=== PATIENT | male | born 1940 | race Caucasian/White ===

== ENCOUNTER 2023-08-21 17:25 | Emergency (ER) | payer MEDICARE, OTHER, SELFPAY ==
[2023-08-21 17:29] VITALS: BP 133/63; BMI 25.3
[2023-08-21 17:30] VITALS: BP 133/63
[2023-08-21 17:56] LABS: % Basophils 0.2 % (0-2); % Eosinophils 0.2 % (0-6); % Immature Granulocytes 0.5 % (0-0.5); % Monocytes 7.9 % (1.7-9.3); % Neutrophils 83.2 % (42.2-75.2); Absolute Lymphocytes 0.7 10^3/uL (1.2-3.4); Absolute Monocytes 0.7 10^3/uL (0.1-0.6); Absolute Neutrophils 6.9 10^3/uL (1.4-6.5); Hematocrit 29.3 % (39.0-52.0); Hemoglobin 10.1 g/dL (13.0-18.0); Mean Corp Hgb Conc. 34.5 g/dL (33.0-37.0); Mean Corpuscular Hgb 27.5 pg (27.0-31.0); Mean Corpuscular Volume 79.8 fL (80.0-94.0); Mean Platelet Volume 9.1 fL (7.4-10.4); Nucleated Red Blood Cells % 0 % (-); Platelet Count 169 10^3/uL (130-400); Red Blood Cell Count 3.67 10^6/uL (4.70-6.10); Red Cell Dist. Width 14.6 % (11.5-14.5); White Blood Cell Count 8.3 10^3/uL (4.8-10.8)
[2023-08-21 18:00] VITALS: BP 119/51
[2023-08-21 18:10] LABS: ALT (SGPT) 17 U/L (0-50); AST (SGOT) 31 U/L (17-59); Albumin 3.3 g/dl (3.5-5.0); Alkaline Phosphatase 47 U/L (38-126); Blood Urea Nitrogen 16 mg/dl (9-20); Calcium 8.1 mg/dl (8.4-10.2); Carbon Dioxide 27 mmol/L (22-30); Chloride 102 mmol/L (98-107); Estimated Creatinine Clearance 47 ml/min; Glucose 153 mg/dl (70-99); Potassium 3.8 mmol/L (3.5-5.1); Sodium 133 mmol/L (135-145); Total Bilirubin 0.7 mg/dl (0.2-1.3); Total Protein 6.2 g/dl (6.3-8.2); eGFR 54.51
[2023-08-21 18:23] LABS: COVID-19 Antigen Negative (Negative)
--- NOTE | 2023-08-21 18:42 | EDRN ---
the pts daughter stated that the pt is 'severely allergic to Tamiflu he went into anaphylaxis, can you please add that to his chart', this RN added Tamiflu to the pts allergies
--- NOTE | 2023-08-21 19:23 | ED.GENMED ---
History of Present Illness
General
Chief Complaint: Fall
Source: patient, records and ambulance crew
Time Seen by Provider: 08/21/23 19:15
Travel History
Have you had any contact with someone who has COVID-19?: No
Do you have any symptoms of coronavirus? Fever > 100 degrees, chills, cough, shortness of breath, sore throat, loss of taste or smell, muscle aches, or headache?: Yes
Symptoms:: cough
History of Present Illness
History of Present Illness:
82-year-old male with past medical history of significant chronic cardiac disease, GERD and previous GI bleeding, diabetes presenting from [facility] where patient is currently residing after having a fall within the last week, normally
lives at home with and daughter, at rehab today patient had another fall when he states he was transitioning back into his wheelchair and struck his head on the ground. Patient is on a half dose of Eliquis which is why they sent him to the ER
for further evaluation. EMS also found the patient to be mildly hypoxic and have a slight cough during transportation here and placed patient on oxygen. Patient's past medical history listed him as using 4 L of O2 at all times however patient
states he never wears oxygen. Patient is unaware of any fevers and is otherwise denying any chest pain, palpitations, diaphoresis, abdominal pain, nausea, vomiting, sore throat, nasal congestion, headache, visual disturbances, focal weakness or
numbness, extremity related pain or any other concerns.
Past History
Past History
ED Past Medical History: Arrthythmia (Afib on Eliquis), CAD, CHF (chronic systolic heart failure), CVA, HTN, Hypercholesterolemia, [place] (2009), Psychiatric (depression ), Other (Pulmonary embolism, DVT), Other (GI bleed) and Other (BPH)
ED Past Surgical History: Cardiac (CABG 2009)
Social History
Tobacco: Former smoker
Alcohol: None
Drug: None
Personal:
Living: prison (lives with at [facility])
Employment: Retired
Family History
Family History: Other (Noncontributory)
Review of Systems
Review of Systems
All Other Systems: ROS reviewed and negative except as documented in HPI and ROS
Phy Exam
Physical Exam
Physical Exam:
GENERAL: Sleeping initially but easily arousable to voice, in no acute distress, on 2 L via nasal cannula
Head: Normocephalic atraumatic
EYE: Clear conjunctiva
NECK: Supple, no midline tenderness
ENT: o/p clr, mmm.
CARDIAC: Regular rate and rhythm .
LUNGS: Rhonchorous lung sounds throughout anterior and posterior lung person but no acute respiratory distress, intermittent nonproductive cough noted
ABDOMEN: Soft, without focal tenderness, no r/g, no cvat
NEUROLOGICAL: Alert and oriented x 3
SKIN: Warm and dry, skin intact.
MUSCULOSKELETAL: No edema, well perfused.
PSYCH: Normal and appropriate interaction.
Scores
Heart Failure Risk
Heart Failure Risk Score: Not Applicable
Heart Score for Chest Pain Patients
STEMI patient?: Not applicable
Withdrawal Assessment of Alcohol
Withdrawal Assessment Completed?: Not applicable
Course
Orders/Labs/Results
Orders:
Orders
08/21/23 17:29
CR Chest - 2 Views Urgent
Comment:
Reason For Exam: cough
08/21/23 17:40
COVID-19 Antigen Urgent
Source: Nasal Swab
Complete Blood Count/With Diff Urgent
Comprehensive Metabolic Panel Urgent
08/21/23 17:42
Influenza A+B Rapid Molecular Urgent
ALEJA Source: Nasal Swab
Specimen Description:
08/21/23 19:22
CT Head W/o Iv Contrast Urgent
Comment:
Reason For Exam: fall, head injury, on eliquis
Abnormal Lab Results
08/21/23
17:40
RBC 3.67 L 10^6/uL
(4.70-6.10)
Hgb 10.1 L g/dL
(13.0-18.0)
Hct 29.3 L %
(39.0-52.0)
MCV 79.8 L fL
(80.0-94.0)
RDW 14.6 H %
(11.5-14.5)
Absolute Neuts (auto) 6.9 H 10^3/uL
(1.4-6.5)
Absolute Lymphs (auto) 0.7 L 10^3/uL
(1.2-3.4)
Absolute Monos (auto) 0.7 H 10^3/uL
(0.1-0.6)
Neutrophils % 83.2 H %
(42.2-75.2)
Lymphocytes % 8.0 L %
(20.5-51.1)
Sodium 133 L mmol/L
(135-145)
Glucose 153 H mg/dl
(70-99)
Calcium 8.1 L mg/dl
(8.4-10.2)
Total Protein 6.2 L g/dl
(6.3-8.2)
Albumin 3.3 L g/dl
(3.5-5.0)
08/21/23 17:40
08/21/23 17:40
Vital Signs
Initial and Last Documented VS:
Initial Vital Signs
Temp Pulse Resp BP Pulse Ox
98.9 F 87 20 133/63 95
08/21/23 17:29 08/21/23 17:29 08/21/23 17:29 08/21/23 17:29 08/21/23 17:29
Last Documented Vital Signs
Temp Pulse Resp BP Pulse Ox
98.9 F 83 24 119/51 98
08/21/23 17:29 08/21/23 18:30 08/21/23 18:30 08/21/23 18:00 08/21/23 19:30
Wood Hacker consulted with Physician
Wood Hacker consulted with physician?: Yes
Name of Physician Consulted: Fortino
MDM/Problems Addressed
Differential Diagnosis Includes:
COVID, flu or other viral etiology, intracranial bleeding, calvarial fracture, mechanical fall, deconditioning, electrolyte disturbance, dehydration
MDM/Problems Addressed:
82-year-old male presenting the emergency department following a mechanical fall while at [facility] today noting head injury but currently without any headache or neurologic concerns or extremity related injury. EMS noted a low pulse ox
upon their arrival and put patient on 2 L nasal cannula, patient was found to be borderline hypoxic here so was kept on the 2 L via nasal cannula. Lab work was initiated upon arrival by nursing staff. Patient incidentally tested positive for the
flu which is likely cause of the hypoxia and coughing. Will add on a CT head to evaluate given the fall and reported head injury as well as anticoagulated status. Patient's chest x-ray reveals a left lower lung opacity which could be consistent
with an early pneumonia and likely viral given the patient's positive flu. Given his current hypoxia, new flu and fall while at rehab I do feel it would be beneficial for the patient to be readmitted to the hospital. I have attempted to contact
family multiple times via telephone in the records but no answer during these attempts to call.
Chronic conditions affecting care: Arrhythmia
*Radiology
Radiology exam reviewed: preliminary read by ED provider (Left lower lung opacity) and radiology read reviewed
*Pulse Oximetry
Patient hypoxic: yes
*Pool Coordinator Interpretation
Rate: normal
Rhythm: sinus
*Critical Care Note
Total Time (30-74mins, 75-104mins- exclusive of procedures): Not Applicable
Data Reviewed
Review of Other/Old Records Reveals: Testing
Source: patient and ambulance crew
Patient Management
Escalation/DeEscalation of care consider admission/obs:
Patient CT of the head is unremarkable. He remained stable and without any specific concerns at this time. I attempted to reach out to family multiple times as well as [facility] multiple times but did not receive a call back from anyone.
Patient is not a Tamiflu candidate due to allergy with reported anaphylaxis. At this point patient needs supportive care only for his flu diagnosis and is going back to [facility] where he resides and will have continuous nursing care. Will
have EMS transport patient back to [facility]
ED Attending Note
-
Portions of this chart may have been created with voice recognition software.� Occasional wrong word or��sound alike� substitutions may have occurred due to the inherent limitations of voice recognition software.
Discharge Plan
Departure
Patient Disposition: [facility]SNF
Date of Disposition: 08/21/23
Time of Disposition: 20:13
Patient with high blood pressure during this ER visit?: No
Discharge Problem:
Influenza A, Accidental fall
Instructions: Flu, Adult (DC)
Prescriptions:
No Action
metformin 500 mg Tablet
250 mg PO BID@
acetaminophen [Tylenol] 325 mg Tablet
650 mg PO Q4H PRN (Reason: mild pain/fever>100.4)
sucralfate [Carafate] 1 gram Tablet
1 g PO BID@
carvedilol [Coreg] 3.125 mg Tablet
3.125 mg PO BID@
magnesium hydroxide [Milk of Magnesia] 400 mg/5 mL Suspension
30 ml PO HS PRN (Reason: constipation)
tamsulosin [Flomax] 0.4 mg Capsule
0.8 mg PO QPM
bisacodyl [Dulcolax (bisacodyl)] 10 mg Suppository
10 mg DC DAILY PRN (Reason: if mom ineffective)
furosemide [Lasix] 20 mg Tablet
20 mg PO DAILY
Levemir Flexpen 100 unit/mL (3 mL) Insulin Pen
20 unit SC DAILY@2029
fesoterodine [Toviaz] 4 mg Tablet Extended Release 24 Hr
4 mg PO DAILY
Arnuity Ellipta 200 mcg/actuation Blister With Device
1 inh INHALATION R DAILY
Trulicity 1.5 mg/0.5 mL Pen Injector
1.5 mg SC TH
divalproex 250 mg Tablet,Delayed Release (Dr/Ec)
250 mg PO BID@
trazodone 50 mg Tablet
50 mg PO HS
Coricidin HBP Cough and Cold 4-30 mg Tablet
1 tab PO Q6H
Patient Comments:
08/21/2023: Start 08/21/23 for 3 days, then start 08/25/23 for 4 days
Rx Instructions:
@0000,0600,1200,1800
loperamide 2 mg Tablet
2 mg PO BID PRN (Reason: diarrhea)
Rx Instructions:
give after each loose stool. max 2 tabs 24 hrs
amlodipine 2.5 mg tablet
2.5 mg PO DAILY
melatonin 3 mg Tablet
3 mg PO HS
pantoprazole 20 mg Tablet,Delayed Release (Dr/Ec)
20 mg PO DAILY@2029
paroxetine HCl 30 mg Tablet
30 mg PO DAILY
ergocalciferol (vitamin D2) 1,250 mcg (50,000 unit) Capsule
1,250 mcg PO MONTHLY
Rx Instructions:
Thursday
apixaban 2.5 mg Tablet
2.5 mg PO BID@
Referrals:
Rick Metcalf DO [Family Provider] -
Interventions
Interventions:
*Risk Screen - Suicide Last Done: 08/21/23 17:29
*General Assessment Last Done: 08/21/23 17:29
*Neglect/Abuse Screening Last Done: 08/21/23 17:29
ED- Fall Risk Assessment Last Done: 08/21/23 17:29
*ED COVID-19 Vaccine History Last Done: 08/21/23 17:29
ED-Musculoskeletal Assessment Last Done: 08/21/23 17:29
ED- Neurological Assessment Last Done: 08/21/23 17:29
ED-Skin Assessment Last Done: 08/21/23 17:29
== END 2023-08-21 23:04 ==
LOC: EMR 17:25
PROVIDERS: Emergency Medicine; EMERGENCY PHYSICIAN Emergency Medicine; FAMILY PHYSICIAN Student in an Organized Health Care Education/Training Program
DX: J10.1 Influenza due to other identified influenza virus with other respiratory manifestations (principal); W19.XXXA Unspecified fall, initial encounter; I49.9 Cardiac arrhythmia, unspecified; Z87.891 Personal history of nicotine dependence; Z11.52 Encounter for screening for COVID-19; Z79.01 Long term (current) use of anticoagulants
CPT/HCPCS: 99283; 70450; 71046; 80053; 85025; 87502; 87811

== ENCOUNTER 2023-08-23 17:39 | Inpatient (IN) | payer MEDICARE, OTHER, SELFPAY ==
[2023-08-23] VITALS (8 sets, daily range): BP systolic 104–153; BP diastolic 49–67; BMI 25.0; BMI 25.7
--- NOTE | 2023-08-23 13:37 | ED.GENMED ---
History of Present Illness
General
Chief Complaint: Breathing Problem
Time Seen by Provider: 08/23/23 14:11
Travel History
Have you had any contact with someone who has COVID-19?: No
Do you have any symptoms of coronavirus? Fever > 100 degrees, chills, cough, shortness of breath, sore throat, loss of taste or smell, muscle aches, or headache?: No
Past History
Past History
ED Past Medical History: Arrthythmia (Afib on Eliquis), CAD, CHF (chronic systolic heart failure), CVA, HTN, Hypercholesterolemia, [place] (2009), Psychiatric (depression ), Other (Pulmonary embolism, DVT), Other (GI bleed) and Other (BPH)
ED Past Surgical History: Cardiac (CABG 2009)
Social History
Tobacco: Former smoker
Alcohol: None
Drug: None
Personal:
Living: fpc (lives with at [facility])
Employment: Retired
Family History
Family History: Other (Noncontributory)
Course
Orders/Labs/Results
Orders:
Orders
08/23/23 14:12
Cardiac Monitoring- Treatment ONCE
Complete Blood Count/With Diff Urgent
Comprehensive Metabolic Panel Urgent
08/23/23 14:13
Electrocardiogram (*1) Stat
Reason for Study: Other
Other Reason for Exam: pneumonia
EKG- Treatment ONCE
CR Chest - 2 Views Urgent
Comment:
Reason For Exam: sob
08/23/23 14:22
Ipratropium/Albuterol Sulfate [Duoneb] 3 ml INH R NOW ONE
08/23/23 14:30
Blood Culture Q30M
ALEJA Source: Blood/Venous
Specimen Description:
08/23/23 15:00
Blood Culture Q30M
ALEJA Source: Blood/Venous
Specimen Description:
Vital Signs
Initial and Last Documented VS:
Initial Vital Signs
Temp Pulse Resp BP Pulse Ox
98.4 F 72 15 104/52 95
08/23/23 13:00 08/23/23 13:00 08/23/23 13:00 08/23/23 13:00 08/23/23 13:00
Last Documented Vital Signs
Temp Pulse Resp BP Pulse Ox
98.4 F 58 21 120/49 98
08/23/23 13:00 08/23/23 14:15 08/23/23 14:15 08/23/23 14:00 08/23/23 14:17
ED Attending Note
-
Portions of this chart may have been created with voice recognition software.� Occasional wrong word or��sound alike� substitutions may have occurred due to the inherent limitations of voice recognition software.
Discharge Plan
Departure
Prescriptions:
No Action
metformin 500 mg Tablet
250 mg PO BID@
acetaminophen [Tylenol] 325 mg Tablet
650 mg PO Q4H PRN (Reason: mild pain/fever>100.4)
sucralfate [Carafate] 1 gram Tablet
1 g PO BID@
carvedilol [Coreg] 3.125 mg Tablet
3.125 mg PO BID@
magnesium hydroxide [Milk of Magnesia] 400 mg/5 mL Suspension
30 ml PO HS PRN (Reason: constipation)
tamsulosin [Flomax] 0.4 mg Capsule
0.8 mg PO QPM
bisacodyl [Dulcolax (bisacodyl)] 10 mg Suppository
10 mg CA DAILY PRN (Reason: if mom ineffective)
furosemide [Lasix] 20 mg Tablet
20 mg PO DAILY
Levemir Flexpen 100 unit/mL (3 mL) Insulin Pen
20 unit SC DAILY@2029
fesoterodine [Toviaz] 4 mg Tablet Extended Release 24 Hr
4 mg PO DAILY
Arnuity Ellipta 200 mcg/actuation Blister With Device
1 inh INHALATION R DAILY
Trulicity 1.5 mg/0.5 mL Pen Injector
1.5 mg SC TH
divalproex 250 mg Tablet,Delayed Release (Dr/Ec)
250 mg PO BID@829,1829
trazodone 50 mg Tablet
50 mg PO HS
Coricidin HBP Cough and Cold 4-30 mg Tablet
1 tab PO Q6H
Patient Comments:
08/21/2023: Start 08/21/23 for 3 days, then start 08/25/23 for 4 days
Rx Instructions:
@0000,0600,1200,1800
loperamide 2 mg Tablet
2 mg PO BID PRN (Reason: diarrhea)
Rx Instructions:
give after each loose stool. max 2 tabs 24 hrs
amlodipine 2.5 mg tablet
2.5 mg PO DAILY
melatonin 3 mg Tablet
3 mg PO HS
pantoprazole 20 mg Tablet,Delayed Release (Dr/Ec)
20 mg PO DAILY@2029
paroxetine HCl 30 mg Tablet
30 mg PO DAILY
ergocalciferol (vitamin D2) 1,250 mcg (50,000 unit) Capsule
1,250 mcg PO MONTHLY
Rx Instructions:
Thursday
apixaban 2.5 mg Tablet
2.5 mg PO BID@
Referrals:
Rick Metcalf DO [Family Provider] -
Interventions
Interventions:
*Risk Screen - Suicide Last Done: 08/23/23 12:58
*General Assessment Last Done: 08/23/23 12:59
*Neglect/Abuse Screening Last Done: 08/23/23 12:58
ED- Fall Risk Assessment Last Done: 08/23/23 12:58
*ED COVID-19 Vaccine History Last Done: 08/23/23 12:59
ED- Cardiac Assessment Last Done: 08/23/23 13:02
ED- Pulmonary Assessment Last Done: 08/23/23 13:02
[2023-08-23] MEDS: DUONEB 3 ML INH ×2 (14:29→20:43)
--- NOTE | 2023-08-23 14:30 | ED.GENMED ---
History of Present Illness
General
Chief Complaint: Breathing Problem
Source: patient, records, family and long term records
Exam Limitations: altered mental status
Time Seen by Provider: 08/23/23 14:11
Nursing documentation reviewed up to this point in time: agreed with
Travel History
Have you had any contact with someone who has COVID-19?: No
Do you have any symptoms of coronavirus? Fever > 100 degrees, chills, cough, shortness of breath, sore throat, loss of taste or smell, muscle aches, or headache?: No
History of Present Illness
History of Present Illness:
82-year-old male from the family presents with fatigue shortness of breath low pulse ox diagnosed with influenza A recently cannot take Tamiflu due to an allergy, started on Augmentin recently has had decreased p.o. intake confusion,
Past History
Past History
ED Past Medical History: Arrthythmia (Afib on Eliquis), CAD, CHF (chronic systolic heart failure), CVA, HTN, Hypercholesterolemia, [place] (2009), Psychiatric (depression ), Other (Pulmonary embolism, DVT), Other (GI bleed) and Other (BPH)
ED Past Surgical History: Cardiac (CABG 2009)
Social History
Tobacco: Former smoker
Alcohol: None
Drug: None
Personal:
Living: long term (lives with at [facility])
Employment: Retired
Family History
Family History: Other (Noncontributory)
Review of Systems
Review of Systems
Other source history: family and transfer record
All Other Systems: Not applicable
Constitutional: Reports fatigue
Respiratory: Reports cough and trouble breathing
Phy Exam
Physical Exam
Physical Exam:
Physical Exam
General: Ill-appearing male
Neck: Looks pale no joint
Heart: s1/s2 regular rate and rhythm, no murmur. equal radial pulses.
Lungs: Crackles by bilaterally
Abdomen: Nontender
Neuro: alert and oriented. Globally weak
Skin: no rash
Psychiatric: Flat affect
Extremities: Trace edema
Scores
Heart Failure Risk
Heart Failure Risk Score: Not Applicable
Course
Orders/Labs/Results
Orders:
Orders
08/23/23 14:12
Cardiac Monitoring- Treatment ONCE
08/23/23 14:13
Electrocardiogram (*1) Stat
Reason for Study: Other
Other Reason for Exam: pneumonia
EKG- Treatment ONCE
CR Chest - 2 Views Urgent
Comment:
Reason For Exam: sob
08/23/23 14:21
Complete Blood Count/With Diff Urgent
Comprehensive Metabolic Panel Urgent
08/23/23 14:22
Ipratropium/Albuterol Sulfate [Duoneb] 3 ml INH R NOW ONE
08/23/23 14:29
Blood Culture Q30M
ALEJA Source: Blood/Venous
Specimen Description:
Blood Culture Q30M
ALEJA Source: Blood/Venous
Specimen Description:
08/23/23 14:34
Electrocardiogram (*1) Urgent
Reason for Study: Abdominal Pain
EKG- Treatment ONCE
08/23/23 Dinner
2000 calorie (17 carb) Diabetic
At Your Request: Full Participation
Does patient need a safe tray?: No
08/23/23 16:23
Piperacillin/Tazo 2.25 Gram [Zosyn] 2.25 grams in 50 ml IV NOW
08/23/23 16:25
0.9% Sodium Chloride 1000 ml [Nss] 1,000 ml IV BOLUS
08/23/23 16:29
Piperacillin/Tazo 2.25 Gram [Zosyn] 2.25 grams in 50 ml IV NOW
08/23/23 17:03
Add On- LAB Urgent
Tests Added?: Procalcitonin
08/23/23 17:05
Admit/Transfer Patient As Directed
Co-Sign Provider:
Level of Care: Inpatient admission
Assign to:: Medical/Surgical
Physician / Group: Pari
Diagnosis: Pneumonia, Influenza, hypoxia
Reason for Hospitalization: IV abx, nebs, oxygen
Expected length of stay greater than two midnights?: Yes
ELOS- Estimated Length of Stay in days: 3
I certify the patient meets the requirements for IP care: Yes
08/23/23 17:11
Code Status As Directed
Resuscitation Status: Do not resuscitate
Based on pt advanced directive or healthcare POA form: Yes
DNR Bracelet Application ONCE
08/23/23 17:37
Procalcitonin Urgent
PCT Algorithmm Indication: Respiratory
08/23/23 19:33
Acetaminophen [Tylenol] 650 mg PO Q4HPRN PRN
Dextrose 50%-Water [Dextrose 50% Syringe] 12.5 grams IV [id number] PRN
Glucagon [GlucaGen] 1 mg IM PRN PRN
Ipratropium/Albuterol Sulfate [Duoneb] 3 ml INH R Q4HPRN PRN
08/23/23 19:33
Activity As Directed
Activity Level: Out of Bed-Early Mobility
Bedside Glucose Monitoring As Directed
Frequency: AC&HS
Comment: Change to q6h if pt on TPN, tube feeding or not eating
I&O [Intake/ Output] As Directed
Frequency: q12h
Intake/ Output As Directed
Frequency: Per unit guidelines
Vital Signs As Directed
Frequency: Per unit guidelines
Weight As Directed
Frequency: Daily
Weight As Directed
Frequency: Once
Comment: on admission
O2 Therapy [RESP] Routine
Titrate/Wean O2 to maintain O2 sat greater than (%): 90
Special Instructions: Wean as tolerated
Vest Therapy [Rx Vest] [RESP] Routine
Quantity: 1
Ot Eval And Treat Routine
Pt Eval And Treat Routine
Activity Level: Out of Bed-Early Mobility
Speech Therapy Eval & Treat Routine
08/23/23 20:00
Budesonide [Pulmicort] 0.5 mg INH R BID
Carvedilol [Coreg] 3.125 mg PO BID
Guaifenesin [Mucinex] 600 mg PO Q12
Ipratropium/Albuterol Sulfate [Duoneb] 3 ml INH R QID
Sucralfate [Carafate] 1 gram PO BID
08/23/23 20:30
insulin detemir U-100 20 unit SC DAILY@2029
08/23/23 21:00
CefTRIAXone [Rocephin] 1,000 mg IV Q24H
08/23/23 21:30
Apixaban [Eliquis] 2.5 mg PO BID
08/23/23 22:00
Divalproex Delayed Rel. 12 Hr [Depakote (12 Hr Release)] 250 mg PO BID@0830,1830
Melatonin 3 mg PO HS
Pantoprazole [Protonix] 20 mg PO HS
Tamsulosin [Flomax] 0.8 mg PO QPM
Trazodone [Desyrel] 50 mg PO HS
08/24/23 06:00
Basic Metabolic Panel IN AM
Complete Blood Count/No Diff IN AM
Glycohemoglobin (HgbA1c) IN AM
08/24/23 07:30
Insulin Aspart Corrective Mod [Novolog Flexpen-Moderate Resistance] See Protocol SC AC
08/24/23 08:00
Amlodipine [Norvasc] 2.5 mg PO DAILY
Azithromycin [Zithromax] 500 mg PO DAILY
Fesoterodine Fumarate ER [Toviaz] 4 mg PO DAILY
Furosemide [Lasix] 20 mg PO DAILY
Paroxetine [Paxil] 30 mg PO DAILY
Abnormal Lab Results
08/23/23 08/23/23
14:21 17:37
RBC 3.65 L 10^6/uL
(4.70-6.10)
Hgb 10.1 L g/dL
(13.0-18.0)
Hct 29.6 L %
(39.0-52.0)
RDW 15.0 H %
(11.5-14.5)
Absolute Monos (auto) 1.0 H 10^3/uL
(0.1-0.6)
Monocytes % 13.3 H %
(1.7-9.3)
Sodium 132 L mmol/L
(135-145)
Carbon Dioxide 31 H mmol/L
(22-30)
Creatinine 1.5 H mg/dL
(0.7-1.3)
Glucose 114 H mg/dl
(70-99)
Calcium 7.9 L mg/dl
(8.4-10.2)
Total Protein 5.7 L g/dl
(6.3-8.2)
Albumin 3.0 L g/dl
(3.5-5.0)
Procalcitonin 0.37 H ng/ml
(0.0-0.25)
08/23/23 14:21
08/23/23 14:21
Vital Signs
Initial and Last Documented VS:
Initial Vital Signs
Temp Pulse Resp BP Pulse Ox
98.4 F 72 15 104/52 95
08/23/23 13:00 08/23/23 13:00 08/23/23 13:00 08/23/23 13:00 08/23/23 13:00
Last Documented Vital Signs
Temp Pulse Resp BP Pulse Ox
97.8 F 73 16 153/67 98
08/23/23 19:53 08/23/23 21:51 08/23/23 20:46 08/23/23 21:51 08/23/23 20:46
MDM/Problems Addressed
Differential Diagnosis Includes:
Pneumonia influenza bronchitis heart failure doubt PE as
MDM/Problems Addressed:
Shortness of breath
Chronic conditions affecting care: DM, HTN, CAD, Cardiomyopathy and Neurological disorder
Acute Exacerbation and/or Progression of Chronic Illness: DM, HTN, CAD, Cardiomyopathy and Neurological disorder
*Radiology
Radiology exam reviewed: preliminary read by ED provider
*Pulse Oximetry
Patient hypoxic: yes
Comment: 89
*EKG
Interpreted by ED Provider?: Yes
Interpretation: abnormal
Comparison EKG: no comparison EKG present
Heart Rate: 78
Rate: normal
Rhythm: sinus
Ischemia: non-specific ST changes
*Air Conditioning Installer Supervisor Interpretation
Rate: normal
Interpretation: normal
Heart Rate: 78
Rhythm: sinus
*Critical Care Note
Total Time (30-74mins, 75-104mins- exclusive of procedures): 30
Data Reviewed
Review of Other/Old Records Reveals: Labs, Records and Progress Notes
Source: patient and family
Update Note
Update Note:
4:20 PM chest x-ray noted, will start IV antibiotics cultures have been sent he requiring supplemental oxygen is allergic to Tamiflu will require admission
ED Attending Note
-
Portions of this chart may have been created with voice recognition software.� Occasional wrong word or��sound alike� substitutions may have occurred due to the inherent limitations of voice recognition software.
Discharge Plan
Departure
Patient Disposition: Admit
Date of Disposition: 08/23/23
Time of Disposition: 16:25
Admit to: Med/Surg
Presentation/result/management discussed w/ accepting MD/DO: Hospitalist
Condition: Fair
Covid-19: Not Applicable
Discharge Problem:
Pneumonia, Toxic metabolic encephalopathy, Hypoxia, Influenza A
Interventions
Interventions:
*Risk Screen - Suicide Last Done: 08/23/23 19:56
*General Assessment Last Done: 08/23/23 12:59
*Neglect/Abuse Screening Last Done: 08/23/23 12:58
ED- Fall Risk Assessment Last Done: 08/23/23 12:58
*ED COVID-19 Vaccine History Last Done: 08/23/23 19:56
*Nursing Disposition Last Done: 08/23/23 19:31
ED- Cardiac Assessment Last Done: 08/23/23 13:02
ED- Pulmonary Assessment Last Done: 08/23/23 13:02
Discharge Date and Time
Discharge Date/Time: 08/23/23 19:31
[2023-08-23 14:32] LABS: % Basophils 0.4 % (0-2); % Eosinophils 0.1 % (0-6); % Immature Granulocytes 0.5 % (0-0.5); % Lymphocytes 27.1 % (20.5-51.1); % Monocytes 13.3 % (1.7-9.3); % Neutrophils 58.6 % (42.2-75.2); Absolute Neutrophils 4.4 10^3/uL (1.4-6.5); Hematocrit 29.6 % (39.0-52.0); Hemoglobin 10.1 g/dL (13.0-18.0); Mean Corp Hgb Conc. 34.1 g/dL (33.0-37.0); Mean Corpuscular Hgb 27.7 pg (27.0-31.0); Mean Corpuscular Volume 81.1 fL (80.0-94.0); Mean Platelet Volume 9.3 fL (7.4-10.4); Nucleated Red Blood Cells % 0 % (-); Platelet Count 154 10^3/uL (130-400); Red Blood Cell Count 3.65 10^6/uL (4.70-6.10); White Blood Cell Count 7.5 10^3/uL (4.8-10.8)
[2023-08-23 14:51] LABS: ALT (SGPT) 24 U/L (0-50); AST (SGOT) 31 U/L (17-59); Alkaline Phosphatase 45 U/L (38-126); Blood Urea Nitrogen 20 mg/dl (9-20); Calcium 7.9 mg/dl (8.4-10.2); Carbon Dioxide 31 mmol/L (22-30); Chloride 100 mmol/L (98-107); Estimated Creatinine Clearance 42 ml/min; Glucose 114 mg/dl (70-99); Potassium 3.7 mmol/L (3.5-5.1); Sodium 132 mmol/L (135-145); Total Bilirubin 0.4 mg/dl (0.2-1.3); Total Protein 5.7 g/dl (6.3-8.2); eGFR 45.91
[2023-08-23] MEDS: NSS 1000 IV (16:32)
[2023-08-23] MEDS: ZOSYN 50 IV (16:33)
--- NOTE | 2023-08-23 17:16 | HPS.HSE ---
Addendum entered and electronically signed by Arin Yañez MD 08/23/23 17:41:
I saw and examined the patient.
The REFORESTATION WORKER's note was reviewed and I agree with the note.
Comment:
82-year-old male from [facility], with past medical history of CHF, Paroxysmal AFib, DVT/PE, Protein S Deficiency, DM-II, BPH, and Dementia, presented with hypoxia and cough likely due to influenza A infection.
Unfortunately unable to give Tamiflu for influenza A infection due to documented history of allergy/anaphylaxis.
Check procalcitonin, Check MRSA screen.
Continue empiric antibiotic with ceftriaxone azithromycin for now. Low threshold to discontinue antibiotics.
Continue oxygen support at 2 L nasal cannula, wean as tolerated.
DuoNebs.
SPL eval to assess for ?aspiration component.
PT OT eval.
Original Note:
Family Physician
-
Family Physician: Rick Metcalf DO
Chief Complaint
-
Cough and Hypoxia
History of Present Illness
Pt is an 82yo M with a past medical history of CHF, Paroxysmal AFib, DVT/PE, Protein S Deficiency, DM-II, BPH, and Dementia presented to the ED from [facility] due to low pulse ox. Patient is a limited historian. He presented to
on 08/21 following a fall and at that time, he was found to be positive for Influenza A. Unfortunately patient has a documented allergy to Tamiflu. He was started on Augmentin at the CT yesterday. He was noted by staff at the CT today to be
hypoxic with pulse ox in the 80s and he was sent to the emergency department for evaluation. Patient is noted to moist cough upon evaluation.
Medical History
Past Medical History
Past Medical History: Reports Other
Additional Past Medical History:
Coronary Artery Disease s/p CABG
Chronic HFpEF
Paroxysmal Atrial Fibrillation
Essential Hypertension
Diabetes Mellitus, Type II
CKD Stage III
Asthma
Dementia with behavioral disturbance
PUD/GI Bleed
BPH
Overactive Bladder
DVT/PE s/p IVC Filter
Past Surgical History: Reports Other
Additional Past Surgical History:
CABG 2010
Bladder Stone Removal
Social History
Tobacco: Former Smoker
Living: [facility]
Family History
Family History: Unable to Obtain
Allergies / Home Medications
Allergies reflects when Allergies were last updated in [employer].
Home Medications with original date entered in [employer]
Allergy/Medication List:
Allergies
Allergy/AdvReac Type Severity Reaction Status Date / Time
ofloxacin [From Floxin] Allergy Rash Verified 08/23/23 12:54
oseltamivir [From Tamiflu] Allergy Anaphylaxis Verified 08/23/23 12:54
Home Medications
acetaminophen 325 mg tablet (Tylenol) 650 mg PO Q4H PRN mild pain/fever>100.4 03/10/22
bisacodyl 10 mg rectal suppository (Dulcolax (bisacodyl)) 10 mg [place] [id number] PRN if mom ineffective 03/10/22
carvedilol 3.125 mg tablet (Coreg) 3.125 mg PO BID 03/10/22
dulaglutide 1.5 mg/0.5 mL subcutaneous pen injector (Trulicity) 1.5 mg SC TH 03/10/22
fesoterodine 4 mg tablet,extended release 24 hr (Toviaz) 4 mg PO DAILY 03/10/22
fluticasone furoate 200 mcg/actuation blister powder for inhalation (Arnuity Ellipta) 1 inh inhalation R DAILY 03/10/22
furosemide 20 mg tablet (Lasix) 20 mg PO DAILY 03/10/22
insulin detemir U-100 100 unit/mL (3 mL) subcutaneous pen 20 unit SC DAILY@2030 03/10/22
magnesium hydroxide 400 mg/5 mL oral suspension (Milk of Magnesia) 30 ml PO HS PRN constipation 03/10/22
metformin 500 mg tablet 250 mg PO BID@0830,1830 03/10/22
sucralfate 1 gram tablet (Carafate) 1 g PO BID 03/10/22
tamsulosin 0.4 mg capsule (Flomax) 0.8 mg PO QPM 03/10/22
amlodipine 2.5 mg tablet 2.5 mg PO DAILY 08/21/23
apixaban 2.5 mg tablet 2.5 mg PO BID 08/21/23
chlorpheniramine-dextromethorphan 4 mg-30 mg tablet (Coricidin HBP Cough and Cold) 1 tab PO Q6H 08/21/23
divalproex 250 mg tablet,delayed release 250 mg PO BID@0830,1830 08/21/23
loperamide 2 mg tablet 2 mg PO BID PRN diarrhea 08/21/23
melatonin 3 mg tablet 3 mg PO HS 08/21/23
pantoprazole 20 mg tablet,delayed release 20 mg PO HS 08/21/23
paroxetine HCl 30 mg tablet 30 mg PO DAILY 08/21/23
trazodone 50 mg tablet 50 mg PO HS 08/21/23
amoxicillin 875 mg-potassium clavulanate 125 mg tablet 1 tab PO BID influenza 08/23/23
cholecalciferol (vitamin D3) 1,250 mcg (50,000 unit) tablet 1,250 mcg PO QMONTH 08/23/23
Review of Systems
-
Unable to obtain full review of systems at this time due to: Dementia
Physical Exam
Vital Signs
Vital Signs
Temp Pulse Resp BP Pulse Ox
98.4 F 63 23 140/59 98
08/23/23 13:00 08/23/23 16:15 08/23/23 16:15 08/23/23 16:00 08/23/23 16:15
Physical Exam
General: Comfortable and Conversant
HEENT: NormoCephalic, Atraumatic and Oxygen (Nasal Cannula)
Respiratory: Rhonchi (Diffuse) and Non Labored Respirations; No Accessory Resp Muscle Use
Cardiac: S1/S2 and Regular Rhythm
GI: Soft and Non Tender
Rectal: Deferred by Provider
Musculoskeletal: No Clubbing, No Cyanosis and No Edema
Skin: Warm and Dry
Neuro: Awake, Alert and Nonfocal/grossly intact
Laboratory Results
-
08/23/23 14:21
08/23/23 14:21
Laboratory Results
Total Bilirubin 0.4 mg/dl (0.2-1.3) 08/23/23 14:21
AST 31 U/L (17-59) 08/23/23 14:21
ALT 24 U/L (0-50) 08/23/23 14:21
Alkaline Phosphatase 45 U/L (38-126) 08/23/23 14:21
Data Reviewed
-
Diagnostic Radiology: Report Reviewed by me
Lab Data: Labs Reviewed by me
Impression/Plan
-
Acute Hypoxic Respiratory Insufficiency secondary to Pneumonia due to Influenza Type A
-Continue supplemental oxygen and wean as tolerate
-Patient unable to tolerate Tamiflu due to documented allergy
-Continue Rocephin and Zithromax pending procalcitonin
-Add Mucinex
-Add Vest Therapy as patient will not be able to use incentive spirometer or acapella device independently
Coronary Artery Disease s/p CABG
Chronic HFpEF
-Continue Lasix
-Monitor Is&Os and Daily Weights
Paroxysmal Atrial Fibrillation
-Continue Eliquis for anticoagulation
-Continue Coreg for rate control
Essential Hypertension
-Continue amlodipine and carvedilol with hold parameters
Diabetes Mellitus, Type II
-Continue Levemir
-Hold Metformin
-Patient also maintained on Trulicity as outpatient
-Monitor sugars and continue coverage insulin
CKD Stage III
-Creatinine at baseline
Asthma
-Continue budesonide neb in place of fluticasone HFA
Dementia with behavioral disturbance noted on CT paperwork
-Monitor for increased behavioral disturbance
-Continue Depakote, Paxil and Trazodone
PUD/GI Bleed
-Continue Protonix and Carafate
BPH
-Continue Flomax
Hx DVT/PE s/p IVC Filter
-Continue Eliquis
Code Status: DNR per [place] Paperwork and POLST
[2023-08-23 18:13] LABS: Procalcitonin 0.37 ng/ml (0.0-0.25)
[2023-08-23] MEDS: PULMICORT 0.5 MG INH (20:43)
[2023-08-23] MEDS: ROCEPHIN 1000 MG IV (21:50)
[2023-08-23] MEDS: COREG 3.125 MG PO (21:51)
[2023-08-23] MEDS: MELATONIN 3 MG PO (21:51)
[2023-08-23] MEDS: DESYREL 50 MG PO (21:51)
[2023-08-23] MEDS: MUCINEX 600 MG PO (21:51)
[2023-08-23] MEDS: FLOMAX 0.800000000000000044 MG PO (21:51)
[2023-08-23] MEDS: CARAFATE 1 GRAM PO (21:51)
[2023-08-23] MEDS: ELIQUIS 2.5 MG PO (21:51)
[2023-08-23] MEDS: PROTONIX 20 MG PO (21:51)
[2023-08-23] MEDS: STERILE WATER FOR INJECTION 10 ML IV (21:51)
[2023-08-23] MEDS: LEVEMIR 0.200000000000000011 UNITS SC (21:56)
[2023-08-23 21:57] LABS: Glucose - Point of Care 202 mg/dl (70-99)
[2023-08-23] MEDS: DEPAKOTE (12 HR RELEASE) 250 MG PO (22:32)
[2023-08-24 06:13] LABS: Hematocrit 30.8 % (39.0-52.0); Hemoglobin 10.1 g/dL (13.0-18.0); Mean Corp Hgb Conc. 32.8 g/dL (33.0-37.0); Mean Corpuscular Hgb 27.3 pg (27.0-31.0); Mean Corpuscular Volume 83.2 fL (80.0-94.0); Mean Platelet Volume 9.7 fL (7.4-10.4); Platelet Count 154 10^3/uL (130-400); Red Cell Dist. Width 14.7 % (11.5-14.5); White Blood Cell Count 7.9 10^3/uL (4.8-10.8)
[2023-08-24 06:33] LABS: Blood Urea Nitrogen 20 mg/dl (9-20); Calcium 7.8 mg/dl (8.4-10.2); Carbon Dioxide 27 mmol/L (22-30); Chloride 98 mmol/L (98-107); Estimated Creatinine Clearance 46 ml/min; Glucose 84 mg/dl (70-99); Potassium 3.7 mmol/L (3.5-5.1); Sodium 134 mmol/L (135-145); eGFR 54.51
[2023-08-24 07:08] VITALS: BP 133/55
[2023-08-24] MEDS: PULMICORT 0.5 MG INH ×2 (08:08→19:44)
[2023-08-24] MEDS: DUONEB 3 ML INH ×4 (08:08→19:44)
[2023-08-24 08:50] LABS: Glycohemoglobin (HgbA1c) 7.4 % (4.0-5.6)
[2023-08-24 09:06] LABS: Glucose - Point of Care 98 mg/dl (70-99)
[2023-08-24] MEDS: NOVOLOG FLEXPEN-MODERATE RESISTANCE SC (09:26)
[2023-08-24] MEDS: ELIQUIS 2.5 MG PO ×2 (09:27→20:46)
[2023-08-24] MEDS: LASIX 20 MG PO (09:27)
[2023-08-24] MEDS: VIBRAMYCIN 100 MG PO ×2 (09:27→20:46)
[2023-08-24] MEDS: PAXIL 30 MG PO (09:28)
[2023-08-24] MEDS: DEPAKOTE (12 HR RELEASE) 250 MG PO ×2 (09:28→17:55)
[2023-08-24] MEDS: NORVASC 2.5 MG PO (09:29)
[2023-08-24] MEDS: CARAFATE 1 GRAM PO ×2 (09:29→20:46)
[2023-08-24] MEDS: MUCINEX 600 MG PO ×2 (09:29→20:46)
[2023-08-24] MEDS: COREG 3.125 MG PO ×2 (09:30→20:50)
[2023-08-24] MEDS: TOVIAZ 4 MG PO (09:30)
[2023-08-24 09:45] VITALS: BMI 25.3
[2023-08-24 09:55] VITALS: BP 129/51; PULSE 60; O2SAT 94
[2023-08-24 10:16] VITALS: BP 129/57; PULSE 65; O2SAT 95
--- NOTE | 2023-08-24 11:07 | PTOTSP ---
SPEECH THERAPY SWALLOW EVALUATION:
Clinical signs of pharyngeal dysphagia, with grossly appearing WFL oral swallow function. Patient exhibiting inconsistent signs of aspiration with thin liquids at this time, greater with straw and consecutive sips from cup. Patient with multiple
precipitating (influenza, pneumonia) and predisposing (CVA, CHF, dementia, CABG) dysphagia risk factors. Recommend instrumental assessment of swallowing (VSE) to further assess swallow physiology. Educated patient on aspiration precautions
including: No straw; small single sips and bites; slow rate of intake. Patient verbally reported he understood all recommendations. Given patient's stable respiratory status at this time (breathing comfortably on NC), and performance at bedside,
patient appears safe to continue oral diet until VSE. Recommend Regular texture diet and thin liquids until VSE. Medications whole with liquid as tolerated. Speech therapy to follow, assess diet tolerance and modify as appropriate, provide continued
education regarding aspiration risks and precautions, and provide further recommendations following VSE.
RECOMMEND:
1) Videofluoroscopic Swallowing Study
2) Regular texture diet and thin liquids until VSE
3) Medications whole with liquid as tolerated
4) Speech therapy to follow, assess diet tolerance and modify as appropriate, provide continued education regarding aspiration risks and precautions, and provide further recommendations following VSE
--- NOTE | 2023-08-24 12:11 | CM ---
Reviewed the chart notes and spoke with the patient and his daughter at the bedside. The patient is a [facility] resident of [facility]. The patient at baseline uses a cane with ambulation. The patient is currently on supplemental O2. CM continues to
be available to patient/family and is monitoring medical plan for needs at discharge.
Plan: Discharge back to [facility] when medically stable. No precert required.
--- NOTE | 2023-08-24 12:19 | W.PN.HOSP.TC ---
Today's Communication/Plan
-
see outlined plan
Assessment / Plan
Assessment / Plan
Assessment:
Acute Hypoxic Respiratory Insufficiency secondary to bacterial community acquired Pneumonia due to Influenza Type A
- on 2L - wean as able
- use IS/Acapella/Mucolytics
- noted Tamiflu allergy, will provide supportive care
- Procal elevated; continue Rocephin, doxy day 1. Follow cultures.
- speech eval noted; VSE tomorrow.
Hyponatremia - monitor
Coronary Artery Disease s/p CABG
Chronic HFpEF
- continue Lasix
- Monitor I/Os and Daily Weights
Paroxysmal Atrial Fibrillation
- continue Eliquis/Coreg
Essential Hypertension
- continue amlodipine and carvedilol with hold parameters
Diabetes Mellitus, Type II
- continue Levemir
- hold Metformin
- patient also maintained on Trulicity as outpatient
- monitor sugars and continue coverage insulin
- Hb A1c 7.4%
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
- creatinine at baseline
Asthma
- continue budesonide neb in place of fluticasone HFA
Dementia with behavioral disturbance noted on [place] paperwork
- monitor for increased behavioral disturbance
- continue Depakote, Paxil and Trazodone
PUD/GI Bleed
- continue Protonix and Carafate
BPH
- continue Flomax
Hx DVT/PE s/p IVC Filter
- continue Eliquis
Code Status: DNR per [place] Paperwork and POLST
Anticipated Discharge: > 48 hours
Subjective/Interval History
-
Date of Service: August 24, 2023
no new complaints presently. on 2L NC
Objective Data
-
Labs:
Laboratory Results
08/24/23
04:50
WBC 7.9
Hgb 10.1 L
Hct 30.8 L
Plt Count 154
Sodium 134 L
Potassium 3.7
Chloride 98
Carbon Dioxide 27
BUN 20
Creatinine 1.3
Glucose 84
Calcium 7.8 L
Vital Signs:
Vital Signs
Temp Pulse Resp BP Pulse Ox
99.0 F 72 18 133/55 96
08/24/23 07:08 08/24/23 09:30 08/24/23 08:05 08/24/23 09:30 08/24/23 08:05
I&O
08/23/23 08/24/23 08/25/23
06:59 06:59 06:59
Intake Total 300 / 300
Balance 300 / 300
Physical Exam
-
General: No Apparent Distress
HEENT: Normocephalic and Atraumatic
Respiratory: Rhonchi; Negative Wheezes
Cardiac: Regular Rhythm and S1/S2
GI: Soft
Genito-urinary: No Costovertebral Tender
Neuro: AO x 3
Hematologic / Lymphatic: No Lymphadenopathy
Psych: Calm
Data Reviewed
-
Total Time Spent with Patient (in minutes): 45
Labs: Labs Reviewed by me
[2023-08-24 13:41] LABS: Glucose - Point of Care 157 mg/dl (70-99)
[2023-08-24] MEDS: NOVOLOG FLEXPEN-MODERATE RESISTANCE 1 UNITS SC ×2 (13:50→17:56)
[2023-08-24 15:00] VITALS: BP 127/63
[2023-08-24 17:18] LABS: Glucose - Point of Care 195 mg/dl (70-99)
[2023-08-24] MEDS: FLOMAX 0.800000000000000044 MG PO (17:55)
[2023-08-24] MEDS: STERILE WATER FOR INJECTION 10 ML IV (20:46)
[2023-08-24] MEDS: ROCEPHIN 1000 MG IV (20:46)
[2023-08-24 21:29] LABS: Glucose - Point of Care 197 mg/dl (70-99)
[2023-08-24] MEDS: MELATONIN 3 MG PO (21:57)
[2023-08-24] MEDS: LEVEMIR 0.200000000000000011 UNITS SC (21:57)
[2023-08-24] MEDS: DESYREL 50 MG PO (21:57)
[2023-08-24] MEDS: PROTONIX 20 MG PO (21:57)
[2023-08-24] MEDS: TYLENOL 650 MG PO (22:51)
[2023-08-24 23:00] VITALS: BP 138/65
[2023-08-25 05:06] LABS: Hematocrit 29.3 % (39.0-52.0); Hemoglobin 9.8 g/dL (13.0-18.0); Mean Corp Hgb Conc. 33.4 g/dL (33.0-37.0); Mean Corpuscular Hgb 26.9 pg (27.0-31.0); Mean Corpuscular Volume 80.5 fL (80.0-94.0); Mean Platelet Volume 9.7 fL (7.4-10.4); Platelet Count 155 10^3/uL (130-400); Red Blood Cell Count 3.64 10^6/uL (4.70-6.10); Red Cell Dist. Width 14.6 % (11.5-14.5); White Blood Cell Count 5.8 10^3/uL (4.8-10.8)
[2023-08-25 05:44] LABS: Blood Urea Nitrogen 15 mg/dl (9-20); Calcium 7.7 mg/dl (8.4-10.2); Carbon Dioxide 29 mmol/L (22-30); Chloride 101 mmol/L (98-107); Estimated Creatinine Clearance 46 ml/min; Glucose 115 mg/dl (70-99); Potassium 3.5 mmol/L (3.5-5.1); Sodium 133 mmol/L (135-145); eGFR 54.51
[2023-08-25 05:48] VITALS: BMI 25.1
[2023-08-25 07:34] LABS: Glucose - Point of Care 100 mg/dl (70-99)
[2023-08-25 07:35] VITALS: BP 119/47
[2023-08-25] MEDS: PULMICORT 0.5 MG INH ×2 (08:01→19:56)
[2023-08-25] MEDS: NOVOLOG FLEXPEN-MODERATE RESISTANCE SC ×2 (08:24→18:00)
[2023-08-25] MEDS: PAXIL 30 MG PO (08:24)
[2023-08-25] MEDS: TOVIAZ 4 MG PO (08:24)
[2023-08-25] MEDS: VIBRAMYCIN 100 MG PO (08:24)
[2023-08-25] MEDS: ELIQUIS 2.5 MG PO ×2 (08:24→21:21)
[2023-08-25] MEDS: DEPAKOTE (12 HR RELEASE) 250 MG PO ×2 (08:24→18:00)
[2023-08-25] MEDS: NORVASC 2.5 MG PO (08:25)
[2023-08-25] MEDS: CARAFATE 1 GRAM PO ×2 (08:25→21:18)
[2023-08-25] MEDS: COREG 3.125 MG PO ×2 (08:25→21:37)
[2023-08-25] MEDS: LASIX 20 MG PO (08:25)
[2023-08-25] MEDS: MUCINEX 600 MG PO (08:25)
[2023-08-25] MEDS: DESENEX/MITRAZOL/ZEASORB 1 APPLIC TOPICAL ×2 (08:29→21:37)
[2023-08-25 11:17] LABS: Glucose - Point of Care 150 mg/dl (70-99)
--- NOTE | 2023-08-25 11:58 | PTOTSP ---
Video Swallow Examination
Patient presents with mild oral and moderate pharyngeal dysphagia with silent aspiration (no cough) x1 with consecutive drinking of thin liquids via cup which could not be cleared with a cued cough. Esophageal sweep in lateral view revealed
proximal greater than distal esophageal retention which could be reduced with a thin liquid wash. Patient has risk factors for top down and bottom up aspiration.
Least restrictive diet would be as outlined below. However, if patient is unable to be supervised and assisted with strategies below (given his history of dementia) consider downgrading liquids to mildly thick. He would benefit from a flow/volume
regulating cup.
Recommend:
1. Regular solids, Thin Liquids via SINGLE CUP SIPS with FULL SUPERVISION, ASSISTANCE to use strategies below
2. Strategies: small SINGLE sips, double swallow with solids and/or alternate single sips/bites to assist with pharyngoesophageal clearance, remain upright for 30 minutes after PO intake as a reflux precaution
3. Medications - crushed in puree if medically cleared to do so
4. Oral care 3-5x daily to reduce risk for complications if aspiration were to occur
5. Dysphagia tx warranted for patient/family/caregiver education in compensations above and adaptive equipment available.
[2023-08-25] MEDS: NOVOLOG FLEXPEN-MODERATE RESISTANCE 1 UNITS SC (13:28)
--- NOTE | 2023-08-25 13:55 | W.PN.HOSP.TC ---
Today's Communication/Plan
-
wean O2
continue IV abx
Assessment / Plan
Assessment / Plan
Assessment:
Acute Hypoxic Respiratory Insufficiency secondary to bacterial community acquired Pneumonia due to Influenza Type A
- on 2L - wean as able
- use IS/Acapella/Mucolytics
- noted Tamiflu allergy, will provide supportive care
- Procal elevated; switch to Unasyn, day 1
- speech eval noted; VSE results: silently aspirated when drinking consecutive sips of thin liquids via cup without a break. No other aspiration occurred. add NTL and meds in puree.
Hyponatremia - monitor
Coronary Artery Disease s/p CABG
Chronic HFpEF
- continue Lasix
- Monitor I/Os and Daily Weights
Paroxysmal Atrial Fibrillation
- continue Eliquis/Coreg
Essential Hypertension
- continue amlodipine and carvedilol with hold parameters
Diabetes Mellitus, Type II
- continue Levemir
- hold Metformin
- patient also maintained on Trulicity as outpatient
- monitor sugars and continue coverage insulin
- Hb A1c 7.4%
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
- creatinine at baseline
Asthma
- continue budesonide neb in place of fluticasone HFA
Dementia with behavioral disturbance noted on [place] paperwork
- monitor for increased behavioral disturbance
- continue Depakote, Paxil and Trazodone
PUD/GI Bleed
- continue Protonix and Carafate
BPH
- continue Flomax
Hx DVT/PE s/p IVC Filter
- continue Eliquis
Code Status: DNR per [place] Paperwork and POLST
Anticipated Discharge: 24 - 48 hours
Subjective/Interval History
-
Date of Service: August 25, 2023
denies any new SOB, remains on 2L NC
Objective Data
-
Labs:
Laboratory Results
08/25/23
04:26
WBC 5.8
Hgb 9.8 L
Hct 29.3 L
Plt Count 155
Sodium 133 L
Potassium 3.5
Chloride 101
Carbon Dioxide 29
BUN 15
Creatinine 1.3
Glucose 115 H
Calcium 7.7 L
Vital Signs:
Vital Signs
Temp Pulse Resp BP Pulse Ox
97.9 F 60 18 119/47 95
08/25/23 07:35 08/25/23 08:25 08/25/23 08:06 08/25/23 08:25 08/25/23 08:06
I&O
08/24/23 08/25/23 08/26/23
06:59 06:59 06:59
Intake Total 300 / 300 900 / 900
Balance 300 / 300 900 / 900
Physical Exam
-
General: No Apparent Distress
HEENT: Normocephalic and Atraumatic
Respiratory: Rhonchi
Cardiac: Regular Rhythm and S1/S2
GI: Soft
Genito-urinary: No Costovertebral Tender
Neuro: AO x 3
Hematologic / Lymphatic: No Lymphadenopathy
Psych: Calm
Data Reviewed
-
Total Time Spent with Patient (in minutes): 45
Labs: Labs Reviewed by me
--- NOTE | 2023-08-25 14:52 | CM ---
Reviewed the chart notes. 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 CM continues to be available to patient/family and is monitoring medical plan for needs at discharge.
Plan: Discharge back to [facility] when medically stable.
[2023-08-25] MEDS: UNASYN IV ×2 (15:07→21:32)
[2023-08-25 15:27] VITALS: BP 151/63
[2023-08-25 16:53] LABS: Glucose - Point of Care 124 mg/dl (70-99)
[2023-08-25] MEDS: FLOMAX 0.800000000000000044 MG PO (18:00)
[2023-08-25] MEDS: PROTONIX 20 MG PO (21:18)
[2023-08-25] MEDS: MELATONIN 3 MG PO (21:19)
[2023-08-25] MEDS: MUCINEX PO (21:19)
[2023-08-25] MEDS: DESYREL 50 MG PO (21:20)
[2023-08-25] MEDS: LEVEMIR 0.200000000000000011 UNITS SC (21:40)
[2023-08-25 21:42] LABS: Glucose - Point of Care 148 mg/dl (70-99)
[2023-08-25 23:45] VITALS: BP 132/63
[2023-08-26] MEDS: UNASYN IV ×4 (03:07→20:18)
[2023-08-26 05:01] LABS: Hematocrit 31.7 % (39.0-52.0); Hemoglobin 10.3 g/dL (13.0-18.0); Mean Corp Hgb Conc. 32.5 g/dL (33.0-37.0); Mean Corpuscular Hgb 26.9 pg (27.0-31.0); Mean Corpuscular Volume 82.8 fL (80.0-94.0); Mean Platelet Volume 9.4 fL (7.4-10.4); Platelet Count 155 10^3/uL (130-400); Red Blood Cell Count 3.83 10^6/uL (4.70-6.10); Red Cell Dist. Width 14.5 % (11.5-14.5); White Blood Cell Count 5.8 10^3/uL (4.8-10.8)
[2023-08-26 05:28] LABS: Blood Urea Nitrogen 14 mg/dl (9-20); Calcium 7.8 mg/dl (8.4-10.2); Carbon Dioxide 31 mmol/L (22-30); Chloride 100 mmol/L (98-107); Estimated Creatinine Clearance 50 ml/min; Glucose 112 mg/dl (70-99); Potassium 3.6 mmol/L (3.5-5.1); Sodium 135 mmol/L (135-145); eGFR > 60.00
[2023-08-26 06:00] VITALS: BMI 24.9
[2023-08-26] MEDS: PULMICORT 0.5 MG INH ×2 (07:37→20:40)
[2023-08-26 07:43] LABS: Glucose - Point of Care 87 mg/dl (70-99)
[2023-08-26 07:55] VITALS: BP 146/61
[2023-08-26] MEDS: NOVOLOG FLEXPEN-MODERATE RESISTANCE SC ×2 (08:58→12:13)
[2023-08-26] MEDS: TOVIAZ 4 MG PO (09:03)
[2023-08-26] MEDS: MUCINEX 600 MG PO (09:03)
[2023-08-26] MEDS: LASIX 20 MG PO (09:03)
[2023-08-26] MEDS: CARAFATE 1 GRAM PO ×2 (09:03→20:20)
[2023-08-26] MEDS: DEPAKOTE (12 HR RELEASE) 250 MG PO ×2 (09:04→17:37)
[2023-08-26] MEDS: NORVASC 2.5 MG PO (09:04)
[2023-08-26] MEDS: PAXIL 30 MG PO (09:04)
[2023-08-26] MEDS: ELIQUIS 2.5 MG PO ×2 (09:04→20:20)
[2023-08-26] MEDS: COREG 3.125 MG PO ×2 (09:04→20:21)
[2023-08-26] MEDS: DESENEX/MITRAZOL/ZEASORB TOPICAL (09:30)
--- NOTE | 2023-08-26 10:13 | W.PN.HOSP.TC ---
Today's Communication/Plan
-
ramp up respiratory clearance measures and wean O2
Assessment / Plan
Assessment / Plan
Assessment:
Acute Hypoxic Respiratory Insufficiency secondary to bacterial community acquired Pneumonia due to Influenza Type A
- on 2L - wean as able
- use IS/Acapella/Mucolytics
- add Chest PT, VEST therapy and saline nebs
- noted Tamiflu allergy, will provide supportive care
- Procal elevated; switch to Unasyn, day 2
- speech eval noted; VSE results: silently aspirated when drinking consecutive sips of thin liquids via cup without a break. No other aspiration occurred. add NTL and meds in puree.
Hyponatremia - monitor
Coronary Artery Disease s/p CABG
Chronic HFpEF
- continue Lasix
- Monitor I/Os and Daily Weights
Paroxysmal Atrial Fibrillation
- continue Eliquis/Coreg
Essential Hypertension
- continue amlodipine and carvedilol with hold parameters
Diabetes Mellitus, Type II
- continue Levemir
- hold Metformin
- patient also maintained on Trulicity as outpatient
- monitor sugars and continue coverage insulin
- Hb A1c 7.4%
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
- creatinine at baseline
Asthma
- continue budesonide neb in place of fluticasone HFA
Dementia with behavioral disturbance noted on [place] paperwork
- monitor for increased behavioral disturbance
- continue Depakote, Paxil and Trazodone
PUD/GI Bleed
- continue Protonix and Carafate
BPH
- continue Flomax
Hx DVT/PE s/p IVC Filter
- continue Eliquis
Code Status: DNR per [place] Paperwork and POLST
Anticipated Discharge: 24 - 48 hours
Subjective/Interval History
-
Date of Service: August 26, 2023
remains congested, previously refusing VEST but advised patient to take VEST therapy as secretions are not mobilizing well.
Objective Data
-
Labs:
Laboratory Results
08/26/23 08/26/23
04:34 04:35
WBC 5.8
Hgb 10.3 L
Hct 31.7 L
Plt Count 155
Sodium 135
Potassium 3.6
Chloride 100
Carbon Dioxide 31 H
BUN 14
Creatinine 1.2
Glucose 112 H
Calcium 7.8 L
Vital Signs:
Vital Signs
Temp Pulse Resp BP Pulse Ox
98.1 F 62 18 146/61 96
08/26/23 07:55 08/26/23 09:04 08/26/23 07:55 08/26/23 09:04 08/26/23 07:55
I&O
08/25/23 08/26/23 08/27/23
06:59 06:59 06:59
Intake Total 900 / 900 750 / 750
Output Total 300 / 300
Balance 900 / 900 450 / 450
Physical Exam
-
General: No Apparent Distress
HEENT: Normocephalic and Atraumatic
Respiratory: Rhonchi
Cardiac: Regular Rhythm and S1/S2
GI: Soft
Neuro: AO x 3
Psych: Calm
Data Reviewed
-
Total Time Spent with Patient (in minutes): 47
Labs: Labs Reviewed by me
[2023-08-26] MEDS: SODIUM CHLORIDE 3% FOR INHALATION 1 VIAL INH ×2 (10:22→20:40)
[2023-08-26 12:06] LABS: Glucose - Point of Care 92 mg/dl (70-99)
[2023-08-26 15:00] VITALS: BP 138/60
--- NOTE | 2023-08-26 15:00 | PTOTSP ---
Dysphagia Therapy
Dysphagia therapy follow up completed. Thin liquids via single cup sips were recommended after video swallow study 08/25/2023 due to silent aspiration with consecutive cup sips of thin liquids. However, if this level of supervision/assistance could
not be provided, mildly thick liquids were recommended. Patient currently on a Regular solid diet with Mildly Thick Liquids.
Please initiate Aspiration Risk Hydration Protocol to allow single sips of water after oral care, with supervision, and only between meals.
Recommend:
1. Regular solids, IDDSI Level 2 (Mildly Thick Liquids) via SINGLE CUP SIPS with FULL SUPERVISION, ASSISTANCE to use strategies below
2. Strategies: small SINGLE sips, double swallow with solids and/or alternate single sips/bites to assist with pharyngoesophageal clearance, remain upright for 30 minutes after PO intake as a reflux precaution
3. Medications - crushed in puree if medically cleared to do so
4. Oral care 3-5x daily to reduce risk for complications if aspiration were to occur
5. Aspiration Risk Hydration Protocol (ARHP) - single cup sips of water, only after oral care, only with supervision, and only between meals
6. Dysphagia tx warranted for patient/family/caregiver education in compensations above and adaptive equipment available.
[2023-08-26 15:35] VITALS: PULSE 68
--- NOTE | 2023-08-26 15:55 | CM ---
Reviewed the chart notes and spoke with the patient. IMM provided and placed on chart. CM continues to be available to patient/family and is monitoring medical plan for needs at discharge.
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
[2023-08-26 17:24] LABS: Glucose - Point of Care 183 mg/dl (70-99)
[2023-08-26] MEDS: NOVOLOG FLEXPEN-MODERATE RESISTANCE 300 UNITS SC (17:38)
[2023-08-26] MEDS: FLOMAX 0.800000000000000044 MG PO (17:39)
[2023-08-26] MEDS: MUCINEX 1200 MG PO (20:20)
[2023-08-26] MEDS: DESENEX/MITRAZOL/ZEASORB 1 APPLIC TOPICAL (20:21)
[2023-08-26 20:24] LABS: Glucose - Point of Care 185 mg/dl (70-99)
[2023-08-26] MEDS: PROTONIX 20 MG PO (21:25)
[2023-08-26] MEDS: MELATONIN 3 MG PO (21:25)
[2023-08-26] MEDS: DESYREL 50 MG PO (21:25)
[2023-08-26] MEDS: LEVEMIR 0.200000000000000011 UNITS SC (21:26)
[2023-08-26 23:14] VITALS: BP 131/63
[2023-08-27] MEDS: UNASYN IV ×4 (01:49→20:03)
[2023-08-27 05:06] LABS: Hematocrit 30.5 % (39.0-52.0); Mean Corp Hgb Conc. 32.8 g/dL (33.0-37.0); Mean Corpuscular Hgb 26.5 pg (27.0-31.0); Mean Corpuscular Volume 80.7 fL (80.0-94.0); Mean Platelet Volume 9.6 fL (7.4-10.4); Platelet Count 169 10^3/uL (130-400); Red Blood Cell Count 3.78 10^6/uL (4.70-6.10); Red Cell Dist. Width 14.4 % (11.5-14.5); White Blood Cell Count 6.1 10^3/uL (4.8-10.8)
[2023-08-27 05:23] LABS: Blood Urea Nitrogen 20 mg/dl (9-20); Carbon Dioxide 33 mmol/L (22-30); Chloride 98 mmol/L (98-107); Estimated Creatinine Clearance 54 ml/min; Glucose 108 mg/dl (70-99); Potassium 3.5 mmol/L (3.5-5.1); Sodium 136 mmol/L (135-145); eGFR > 60.00
[2023-08-27 06:00] VITALS: BMI 24.8
[2023-08-27 07:31] LABS: Glucose - Point of Care 100 mg/dl (70-99)
[2023-08-27 07:50] VITALS: BP 153/66
[2023-08-27] MEDS: PULMICORT 0.5 MG INH ×2 (07:50→20:00)
[2023-08-27] MEDS: SODIUM CHLORIDE 3% FOR INHALATION 1 VIAL INH ×2 (07:50→20:00)
[2023-08-27] MEDS: NOVOLOG FLEXPEN-MODERATE RESISTANCE SC ×3 (08:48→17:15)
[2023-08-27] MEDS: COREG 3.125 MG PO ×2 (09:04→20:04)
[2023-08-27] MEDS: TOVIAZ 4 MG PO (09:04)
[2023-08-27] MEDS: LASIX 20 MG PO (09:04)
[2023-08-27] MEDS: ELIQUIS 2.5 MG PO ×2 (09:04→20:04)
[2023-08-27] MEDS: DEPAKOTE (12 HR RELEASE) 250 MG PO ×2 (09:05→17:15)
[2023-08-27] MEDS: NORVASC 2.5 MG PO (09:05)
[2023-08-27] MEDS: CARAFATE 1 GRAM PO ×2 (09:06→20:04)
[2023-08-27] MEDS: PAXIL 30 MG PO (09:06)
[2023-08-27] MEDS: DESENEX/MITRAZOL/ZEASORB 1 APPLIC TOPICAL ×2 (09:06→20:10)
[2023-08-27] MEDS: MUCINEX 1200 MG PO ×2 (09:07→20:04)
[2023-08-27 11:53] LABS: Glucose - Point of Care 129 mg/dl (70-99)
--- NOTE | 2023-08-27 12:05 | PN.CDI ---
CDI
- -
CDI:
Physician Documentation Request
Admit Date: 08/23/23 17:39
Dear Doctor Le
ED record states ' presents with fatigue shortness of breath low pulse ox diagnosed with influenza A recently cannot take Tamiflu due to an allergy, started on Augmentin recently has had decreased p.o. intake confusion,'
Discharge problems listed as 'Pneumonia, Toxic metabolic encephalopathy, Hypoxia, Influenza A'
H&P states pt with history of dementia 'Dementia with behavioral disturbance noted on [place] paperwork'
Please clarify the etiology of patient's confusion:
Toxic metabolic Encephalopathy
Dementia with acute delirium - indicate type fo dementia, such as Alzheimer's, senile, vascular, Lewy body etc.
Dementia with behavioral disturbances and TME
Dementia with behavioral disturbances only
Other
Use of terms such as suspected, likely, concern for, or probable (associated with a specific diagnosis that is being evaluated, monitored, or treated as if it exists) are acceptable and can be coded in the inpatient setting, when documented at the
time of discharge.
Thank you,
Keila Skinner RN, BSN
CDI Specialist
tiger text
Please use your independent medical judgment in providing your response.
[2023-08-27 14:51] VITALS: BP 124/55; PULSE 66; O2SAT 97
--- NOTE | 2023-08-27 15:17 | CM ---
Addendum entered by Génesis Ventura RN 08/27/23 15:19:
IMM placed on chart.
Original Note:
Reviewed the chart notes and spoke with the patient at the bedside. Patient remains on supplemental O2 @ 1.5L/min. CM continues to be available to patient/family and is monitoring medical plan for needs at discharge.
Plan: Discharge back to [facility] when medically stable. No precert required.
--- NOTE | 2023-08-27 15:27 | W.PN.HOSP.TC ---
Today's Communication/Plan
-
continue IV Abx
continue to wean O2
continue mucous clearance
Assessment / Plan
Assessment / Plan
Assessment:
Acute Hypoxic Respiratory Insufficiency secondary to bacterial community acquired Pneumonia due to Influenza Type A
- on 2L - wean as able
- use IS/Acapella/Mucolytics
- continue Chest PT, VEST therapy and saline nebs
- noted Tamiflu allergy, will provide supportive care
- Procal elevated; switch to Unasyn, day 3
- speech eval noted; VSE results: silently aspirated when drinking consecutive sips of thin liquids via cup without a break. No other aspiration occurred. add NTL and meds in puree.
Hyponatremia - monitor
Coronary Artery Disease s/p CABG
Chronic HFpEF
- continue Lasix
- Monitor I/Os and Daily Weights
Paroxysmal Atrial Fibrillation
- continue Eliquis/Coreg
Essential Hypertension
- continue amlodipine and carvedilol with hold parameters
Diabetes Mellitus, Type II
- continue Levemir
- hold Metformin
- patient also maintained on Trulicity as outpatient
- monitor sugars and continue coverage insulin
- Hb A1c 7.4%
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
- creatinine at baseline
Asthma
- continue budesonide neb in place of fluticasone HFA
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
- monitor for increased behavioral disturbance
- continue Depakote, Paxil and Trazodone
PUD/GI Bleed
- continue Protonix and Carafate
BPH
- continue Flomax
Hx DVT/PE s/p IVC Filter
- continue Eliquis
Code Status: DNR per [place] Paperwork and POLST
Anticipated Discharge: 24 - 48 hours
Subjective/Interval History
-
Date of Service: August 27, 2023
more alert today, sitting in chair
remains 1-2L NC
Objective Data
-
Labs:
Laboratory Results
08/27/23
04:25
WBC 6.1
Hgb 10.0 L
Hct 30.5 L
Plt Count 169
Sodium 136
Potassium 3.5
Chloride 98
Carbon Dioxide 33 H
BUN 20
Creatinine 1.1
Glucose 108 H
Calcium 8.0 L
Vital Signs:
Vital Signs
Temp Pulse Resp BP Pulse Ox
97.7 F 65 18 144/58 96
08/27/23 07:50 08/27/23 09:04 08/27/23 07:53 08/27/23 09:04 08/27/23 08:00
I&O
08/26/23 08/27/23 08/28/23
06:59 06:59 06:59
Intake Total 750 / 750 1020 / 1020
Output Total 300 / 300
Balance 450 / 450 1020 / 1020
Physical Exam
-
General: No Apparent Distress
HEENT: Normocephalic and Atraumatic
Respiratory: Rhonchi; Negative Wheezes
Cardiac: Regular Rhythm and S1/S2
GI: Soft
Genito-urinary: No Costovertebral Tender
Neuro: AO x 3
Hematologic / Lymphatic: No Lymphadenopathy
Psych: Calm
Data Reviewed
-
Total Time Spent with Patient (in minutes): 45
Labs: Labs Reviewed by me
[2023-08-27 15:39] VITALS: BP 124/55
[2023-08-27 17:06] LABS: Glucose - Point of Care 144 mg/dl (70-99)
[2023-08-27] MEDS: FLOMAX 0.800000000000000044 MG PO (17:15)
[2023-08-27 20:29] LABS: Glucose - Point of Care 213 mg/dl (70-99)
[2023-08-27] MEDS: LEVEMIR 0.200000000000000011 UNITS SC (21:47)
[2023-08-27] MEDS: MELATONIN 3 MG PO (21:48)
[2023-08-27] MEDS: PROTONIX 20 MG PO (21:48)
[2023-08-27] MEDS: DESYREL 50 MG PO (21:48)
[2023-08-27 23:16] VITALS: BP 123/49
[2023-08-28] MEDS: UNASYN IV ×4 (01:56→20:26)
[2023-08-28 06:00] VITALS: BMI 24.8
[2023-08-28 06:16] LABS: Hemoglobin 10.5 g/dL (13.0-18.0); Mean Corp Hgb Conc. 32.8 g/dL (33.0-37.0); Mean Corpuscular Hgb 26.9 pg (27.0-31.0); Mean Corpuscular Volume 81.8 fL (80.0-94.0); Mean Platelet Volume 9.5 fL (7.4-10.4); Platelet Count 177 10^3/uL (130-400); Red Blood Cell Count 3.91 10^6/uL (4.70-6.10); Red Cell Dist. Width 14.2 % (11.5-14.5); White Blood Cell Count 7.3 10^3/uL (4.8-10.8)
[2023-08-28 06:43] LABS: Blood Urea Nitrogen 19 mg/dl (9-20); Calcium 8.2 mg/dl (8.4-10.2); Carbon Dioxide 33 mmol/L (22-30); Chloride 98 mmol/L (98-107); Estimated Creatinine Clearance 54 ml/min; Glucose 87 mg/dl (70-99); Potassium 3.4 mmol/L (3.5-5.1); Sodium 139 mmol/L (135-145); eGFR > 60.00
[2023-08-28] MEDS: PULMICORT 0.5 MG INH ×2 (07:35→19:25)
[2023-08-28] MEDS: SODIUM CHLORIDE 3% FOR INHALATION 1 VIAL INH ×2 (07:35→19:25)
[2023-08-28 07:45] VITALS: BP 151/63
[2023-08-28 07:46] LABS: Glucose - Point of Care 83 mg/dl (70-99)
[2023-08-28] MEDS: NOVOLOG FLEXPEN-MODERATE RESISTANCE SC ×2 (08:37→11:45)
[2023-08-28] MEDS: TOVIAZ 4 MG PO (09:35)
[2023-08-28] MEDS: MUCINEX 1200 MG PO ×2 (09:35→20:25)
[2023-08-28] MEDS: COREG 3.125 MG PO ×2 (09:36→20:24)
[2023-08-28] MEDS: DEPAKOTE (12 HR RELEASE) 250 MG PO ×2 (09:36→17:33)
[2023-08-28] MEDS: LASIX 20 MG PO (09:36)
[2023-08-28] MEDS: PAXIL 30 MG PO (09:36)
[2023-08-28] MEDS: CARAFATE 1 GRAM PO ×2 (09:36→20:24)
[2023-08-28] MEDS: ELIQUIS 2.5 MG PO ×2 (09:37→20:25)
[2023-08-28] MEDS: NORVASC 2.5 MG PO (09:37)
[2023-08-28] MEDS: DESENEX/MITRAZOL/ZEASORB 1 APPLIC TOPICAL ×2 (09:37→20:25)
--- NOTE | 2023-08-28 10:41 | W.PN.HOSP.TC ---
Today's Communication/Plan
-
wean O2
likely DC in 24 hours
Assessment / Plan
Assessment / Plan
Assessment:
Acute Hypoxic Respiratory Insufficiency secondary to bacterial community acquired Pneumonia due to Influenza Type A
- on 2L - wean as able
- use IS/Acapella/Mucolytics
- continue Chest PT, VEST therapy and saline nebs
- noted Tamiflu allergy, will provide supportive care
- Procal elevated; continue Unasyn, day 4
- speech eval noted; VSE results: silently aspirated when drinking consecutive sips of thin liquids via cup without a break. No other aspiration occurred. add NTL and meds in puree.
Hyponatremia - monitor
Coronary Artery Disease s/p CABG
Chronic HFpEF
- continue Lasix
- Monitor I/Os and Daily Weights
Paroxysmal Atrial Fibrillation
- continue Eliquis/Coreg
Essential Hypertension
- continue amlodipine and carvedilol with hold parameters
Diabetes Mellitus, Type II
- continue Levemir
- hold Metformin
- patient also maintained on Trulicity as outpatient
- monitor sugars and continue coverage insulin
- Hb A1c 7.4%
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
- creatinine at baseline
Asthma
- continue budesonide neb in place of fluticasone HFA
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
- monitor for increased behavioral disturbance
- continue Depakote, Paxil and Trazodone
PUD/GI Bleed
- continue Protonix and Carafate
BPH
- continue Flomax
Hx DVT/PE s/p IVC Filter
- continue Eliquis
Code Status: DNR per [place] Paperwork and POLST
Anticipated Discharge: Within 24 hours
Subjective/Interval History
-
Date of Service: August 28, 2023
more alert today, and clearing secretions
Objective Data
-
Labs:
Laboratory Results
08/28/23
05:34
WBC 7.3
Hgb 10.5 L
Hct 32.0 L
Plt Count 177
Sodium 139
Potassium 3.4 L
Chloride 98
Carbon Dioxide 33 H
BUN 19
Creatinine 1.1
Glucose 87
Calcium 8.2 L
Vital Signs:
Vital Signs
Temp Pulse Resp BP Pulse Ox
97.9 F 64 16 151/63 92
08/28/23 07:45 08/28/23 09:37 08/28/23 07:45 08/28/23 09:37 08/28/23 10:25
I&O
08/27/23 08/28/23 08/29/23
06:59 06:59 06:59
Intake Total 1020 / 1020 1060 / 1060
Balance 1020 / 1020 1060 / 1060
Physical Exam
-
General: No Apparent Distress
HEENT: Normocephalic and Atraumatic
Respiratory: Negative Wheezes
Cardiac: Regular Rhythm
GI: Soft
Genito-urinary: No Costovertebral Tender
Musculoskeletal: No Edema
Neuro: AO x 3
Psych: Calm
Data Reviewed
-
Total Time Spent with Patient (in minutes): 45
Labs: Labs Reviewed by me
[2023-08-28] MEDS: KLOR-CON 40 MEQ PO (11:00)
[2023-08-28 11:29] LABS: Glucose - Point of Care 146 mg/dl (70-99)
[2023-08-28 14:05] VITALS: BMI 24.8
[2023-08-28 15:20] VITALS: BP 137/69
[2023-08-28 15:51] VITALS: BP 134/62; BP 155/67; PULSE 63; O2SAT 86
--- NOTE | 2023-08-28 16:03 | CM ---
Reviewed chart notes and spoke with Carina Bailey Admission Direct at [facility]. Patient will be accepted back at discharge. CM continues to be available to patient/family and is monitoring medical plan for needs at discharge.
Plan: Discharge back to [facility] when medically stable.
[2023-08-28 17:13] LABS: Glucose - Point of Care 160 mg/dl (70-99)
[2023-08-28] MEDS: FLOMAX 0.800000000000000044 MG PO (17:33)
[2023-08-28] MEDS: NOVOLOG FLEXPEN-MODERATE RESISTANCE 1 UNITS SC (17:33)
[2023-08-28 21:14] LABS: Glucose - Point of Care 188 mg/dl (70-99)
[2023-08-28] MEDS: DESYREL 50 MG PO (21:45)
[2023-08-28] MEDS: PROTONIX 20 MG PO (21:45)
[2023-08-28] MEDS: MELATONIN 3 MG PO (21:45)
[2023-08-28] MEDS: LEVEMIR 0.200000000000000011 UNITS SC (22:01)
[2023-08-28 23:04] VITALS: BP 149/61
[2023-08-29] MEDS: UNASYN IV ×3 (02:06→14:34)
[2023-08-29 03:35] VITALS: BMI 24.6
[2023-08-29] MEDS: PULMICORT 0.5 MG INH (07:48)
[2023-08-29] MEDS: SODIUM CHLORIDE 3% FOR INHALATION 1 VIAL INH (07:48)
[2023-08-29 07:52] VITALS: BP 176/67
[2023-08-29 08:13] LABS: Glucose - Point of Care 83 mg/dl (70-99)
[2023-08-29] MEDS: NOVOLOG FLEXPEN-MODERATE RESISTANCE SC ×3 (09:32→16:15)
[2023-08-29] MEDS: DEPAKOTE (12 HR RELEASE) 250 MG PO ×2 (09:33→17:18)
[2023-08-29] MEDS: MUCINEX 1200 MG PO (09:33)
[2023-08-29] MEDS: TOVIAZ 4 MG PO (09:33)
[2023-08-29] MEDS: LASIX 20 MG PO (09:33)
[2023-08-29] MEDS: NORVASC 2.5 MG PO (09:33)
[2023-08-29] MEDS: CARAFATE 1 GRAM PO (09:34)
[2023-08-29] MEDS: PAXIL 30 MG PO (09:34)
[2023-08-29] MEDS: COREG PO (09:35)
[2023-08-29 09:36] LABS: Blood Urea Nitrogen 14 mg/dl (9-20); Calcium 8.3 mg/dl (8.4-10.2); Carbon Dioxide 32 mmol/L (22-30); Chloride 100 mmol/L (98-107); Estimated Creatinine Clearance 50 ml/min; Glucose 89 mg/dl (70-99); Potassium 3.6 mmol/L (3.5-5.1); Sodium 140 mmol/L (135-145); eGFR > 60.00
[2023-08-29] MEDS: ELIQUIS 2.5 MG PO (09:41)
[2023-08-29] MEDS: DESENEX/MITRAZOL/ZEASORB 1 APPLIC TOPICAL (09:42)
--- NOTE | 2023-08-29 10:59 | W.PN.HOSP.TC ---
Today's Communication/Plan
-
dc to SNF
Assessment / Plan
Assessment / Plan
Assessment:
Acute Hypoxic Respiratory Insufficiency secondary to bacterial community acquired Pneumonia due to Influenza Type A
- on 2L - wean as able
- use IS/Acapella/Mucolytics
- continue Chest PT, VEST therapy and saline nebs
- noted Tamiflu allergy, will provide supportive care
- Procal elevated; continue Unasyn, day 5. switch to Augmentin at dc to complete 10 day course
- speech eval noted; VSE results: silently aspirated when drinking consecutive sips of thin liquids via cup without a break. No other aspiration occurred. add NTL and meds in puree.
Hyponatremia - monitor
Coronary Artery Disease s/p CABG
Chronic HFpEF
- continue Lasix
- Monitor I/Os and Daily Weights
Paroxysmal Atrial Fibrillation
- continue Eliquis/Coreg
Essential Hypertension
- continue amlodipine and carvedilol with hold parameters
Diabetes Mellitus, Type II
- continue Levemir
- hold Metformin
- patient also maintained on Trulicity as outpatient
- monitor sugars and continue coverage insulin
- Hb A1c 7.4%
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
- creatinine at baseline
Asthma
- continue budesonide neb in place of fluticasone HFA
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
- monitor for increased behavioral disturbance
- continue Depakote, Paxil and Trazodone
PUD/GI Bleed
- continue Protonix and Carafate
BPH
- continue Flomax
Hx DVT/PE s/p IVC Filter
- continue Eliquis
Code Status: DNR per [place] Paperwork and POLST
More than 30 minutes spent in discharge including
Final examination of the patient
Summarizing hospital stay
Instructions for continuing care to all relevant caregivers
Preparation of discharge records, prescriptions, and referral forms
Total time spent (in minutes): 44
Anticipated Discharge: Today
Subjective/Interval History
-
Date of Service: August 29, 2023
denies any new complaints at present
Objective Data
-
Labs:
Laboratory Results
08/29/23
08:52
Sodium 140
Potassium 3.6
Chloride 100
Carbon Dioxide 32 H
BUN 14
Creatinine 1.2
Glucose 89
Calcium 8.3 L
Vital Signs:
Vital Signs
Temp Pulse Resp BP Pulse Ox
97.6 F 51 16 176/67 100
08/29/23 07:52 08/29/23 09:35 08/29/23 07:52 08/29/23 09:33 08/29/23 07:52
I&O
08/28/23 08/29/23 08/30/23
06:59 06:59 06:59
Intake Total 1060 / 1060 600 / 600
Balance 1060 / 1060 600 / 600
Physical Exam
-
General: No Apparent Distress
HEENT: Normocephalic and Atraumatic
Respiratory: Negative Wheezes or Rales
Cardiac: Regular Rhythm and S1/S2
GI: Soft
Genito-urinary: No Costovertebral Tender
Neuro: AO x 3
Psych: Calm
Data Reviewed
-
Total Time Spent with Patient (in minutes): 44
Labs: Labs Reviewed by me
--- NOTE | 2023-08-29 11:05 | W.DS.TRANS ---
DC Summary - [facility] [employer]
-
Discharge Instructions:
Discharge Diagnosis/Procedures pneumonia from aspiration, hypoxia
Diet Regular
Additional Diets follow aspiration precautions. nectar thick
liquids
Activity As tolerated
Bathing Restrictions None
Other Services ST,OT,PT
Instructions:
Stand-Alone Forms:
Changes to Home Medications: No
Discharge Medications:
DC Medications w/original date entered in [employer]
acetaminophen 325 mg tablet (Tylenol) 650 mg PO Q4H PRN mild pain/fever>100.4 03/10/22
bisacodyl 10 mg rectal suppository (Dulcolax (bisacodyl)) 10 mg RI [id number] PRN if mom ineffective 03/10/22
carvedilol 3.125 mg tablet (Coreg) 3.125 mg PO BID Blood Pressure 03/10/22
dulaglutide 1.5 mg/0.5 mL subcutaneous pen injector (Trulicity) 1.5 mg SC TH Diabetes 03/10/22
fesoterodine 4 mg tablet,extended release 24 hr (Toviaz) 4 mg PO DAILY Urinary Issue 03/10/22
fluticasone furoate 200 mcg/actuation blister powder for inhalation (Arnuity Ellipta) 1 inh inhalation R DAILY Lung/Breathing Issues 03/10/22
furosemide 20 mg tablet (Lasix) 20 mg PO DAILY Fluid Retention/Swelling 03/10/22
insulin detemir U-100 100 unit/mL (3 mL) subcutaneous pen 20 unit SC DAILY@2030 Diabetes 03/10/22
magnesium hydroxide 400 mg/5 mL oral suspension (Milk of Magnesia) 30 ml PO HS PRN constipation 03/10/22
metformin 500 mg tablet 250 mg PO BID@0830,1830 Diabetes 03/10/22
sucralfate 1 gram tablet (Carafate) 1 g PO BID Gastrointestinal Issue 03/10/22
tamsulosin 0.4 mg capsule (Flomax) 0.8 mg PO QPM Urinary Issue 03/10/22
amlodipine 2.5 mg tablet 2.5 mg PO DAILY Blood Pressure 08/21/23
apixaban 2.5 mg tablet 2.5 mg PO BID Blood Clot Prevention/Tx 08/21/23
divalproex 250 mg tablet,delayed release 250 mg PO BID@0830,1830 Seizures 08/21/23
loperamide 2 mg tablet 2 mg PO BID PRN diarrhea 08/21/23
melatonin 3 mg tablet 3 mg PO HS Sleep 08/21/23
pantoprazole 20 mg tablet,delayed release 20 mg PO HS Gastrointestinal Issue 08/21/23
paroxetine HCl 30 mg tablet 30 mg PO DAILY Mental Health/Anxiety 08/21/23
trazodone 50 mg tablet 50 mg PO HS 08/21/23
cholecalciferol (vitamin D3) 1,250 mcg (50,000 unit) tablet 1,250 mcg PO QMONTH Supplement 08/23/23
amoxicillin 875 mg-potassium clavulanate 125 mg tablet 1 tab PO BID influenza #12 tabs 08/29/23
guaifenesin 600 mg tablet, extended release 12 hr 1,200 mg PO Q12 #20 tabs 08/29/23
ipratropium 0.5 mg-albuterol 3 mg (2.5 mg base)/3 mL nebulization soln 3 ml inhalation R Q4HPRN PRN shortness of breath/wheezing #90 mL 08/29/23
Home Medication Changes
Pending Results: No
Total time spent discharging patient (in min): 44
--- NOTE | 2023-08-29 11:27 | CM ---
CM following re: discharge planning.
Reviewed pt's chart, met with pt and spoke to pt's daughter Kiana to update on discharge plan progress.
Discharge order noted. Both pt and his daughter are aware, expressed their agreement with discharge. IMM reviewed, placed in chart, pt has a copy.
Pt is a long terr care resident at [facility]. CM spoke to [facility] patient care director and she confirmed that pt is accepted for admission today.
to arrange transportation, ambulance [facility]. PMNC completed, left with [facility] nursing report: [phone]
Discharge instructions fax: [phone]
D/C plan: return back to [facility] [place] [facility] [place] care.
No other discharge needs identified.
[2023-08-29 11:30] LABS: Glucose - Point of Care 114 mg/dl (70-99)
[2023-08-29 15:57] VITALS: BP 152/71
[2023-08-29 16:15] LABS: Glucose - Point of Care 144 mg/dl (70-99)
[2023-08-29] MEDS: FLOMAX 0.800000000000000044 MG PO (17:14)
== END 2023-08-29 18:50 | DRG 194 ==
LOC: 2 NORTH 17:39
PROVIDERS: Physician Assistant Medical; ADMITTING PHYSICIAN Internal Medicine; ATTENDING PHYSICIAN Internal Medicine; EMERGENCY PHYSICIAN Emergency Medicine; FAMILY PHYSICIAN Student in an Organized Health Care Education/Training Program
DX: J18.9 Pneumonia, unspecified organism (principal); E87.1 Hypo-osmolality and hyponatremia; I50.42 Chronic combined systolic (congestive) and diastolic (congestive) heart failure; I13.0 Hypertensive heart and chronic kidney disease with heart failure and stage 1 through stage 4 chronic kidney disease, or unspecified chronic kidney disease; F03.918 Unspecified dementia, unspecified severity, with other behavioral disturbance; F03.93 Unspecified dementia, unspecified severity, with mood disturbance; K92.2 Gastrointestinal hemorrhage, unspecified; J10.01 Influenza due to other identified influenza virus with the same other identified influenza virus pneumonia; J10.00 Influenza due to other identified influenza virus with unspecified type of pneumonia; Z66 Do not resuscitate; Z87.891 Personal history of nicotine dependence; R09.02 Hypoxemia; R06.89 Other abnormalities of breathing; I25.10 Atherosclerotic heart disease of native coronary artery without angina pectoris; Z95.1 Presence of aortocoronary bypass graft; I48.0 Paroxysmal atrial fibrillation; Z79.01 Long term (current) use of anticoagulants; N18.32 Chronic kidney disease, stage 3b; E11.22 Type 2 diabetes mellitus with diabetic chronic kidney disease; J45.909 Unspecified asthma, uncomplicated; N40.0 Benign prostatic hyperplasia without lower urinary tract symptoms
CPT/HCPCS: 70450; 71046; 74230; 80048; 80053; 82962; 83036; 84145; 85025; 85027; 87040; 87502; 87811; 92526; 92610; 92611; 93005; 94640; 94669; 96365; 97116; 97162; 97166; 97530; 97535; 99291

== ENCOUNTER → 2023-11-10 09:39 | Outpatient (REF) | payer MEDICARE, OTHER, SELFPAY ==
[2023-11-10 10:18] LABS: Blood Urea Nitrogen 20 mg/dl (9-20); Calcium 8.7 mg/dl (8.4-10.2); Carbon Dioxide 27 mmol/L (22-30); Chloride 104 mmol/L (98-107); Glucose 68 mg/dl (70-99); Potassium 3.7 mmol/L (3.5-5.1); Sodium 137 mmol/L (135-145); eGFR 54.17
== END ==
LOC: OLABN 09:39
PROVIDERS: ATTENDING PHYSICIAN Student in an Organized Health Care Education/Training Program
DX: R19.7 Diarrhea, unspecified (principal); M62.81 Muscle weakness (generalized)
CPT/HCPCS: 36415; 80048; 83735

== ENCOUNTER → 2023-11-13 12:05 | Outpatient (REF) | payer MEDICARE, OTHER, SELFPAY ==
[2023-11-13 13:01] LABS: Cholesterol 128 mg/dl (50-199)
== END ==
LOC: OLABN 12:05
PROVIDERS: ATTENDING PHYSICIAN Student in an Organized Health Care Education/Training Program
DX: I10 Essential (primary) hypertension (principal)
CPT/HCPCS: 36415; 82465

== ENCOUNTER → 2024-02-18 09:11 | Outpatient (REF) | payer MEDICARE, OTHER, SELFPAY ==
[2024-02-18 10:24] LABS: Depakane 27.7 ug/ml (50.0-120.0)
== END ==
LOC: OLABN 09:11
PROVIDERS: ATTENDING PHYSICIAN Student in an Organized Health Care Education/Training Program
DX: F63.81 Intermittent explosive disorder (principal)
CPT/HCPCS: 80164

== ENCOUNTER → 2024-03-25 12:22 | Outpatient (REF) | payer MEDICARE, OTHER, SELFPAY ==
[2024-03-25 13:41] LABS: C-Reactive Protein < 5.00 mg/L (0.0-10.00)
[2024-03-25 13:57] LABS: Free T4 1.31 ng/dl (0.78-2.19)
[2024-03-25 14:11] LABS: TSH 5.16 uIU/ml (0.47-4.68)
== END ==
LOC: OLABN 12:22
PROVIDERS: ATTENDING PHYSICIAN Student in an Organized Health Care Education/Training Program
DX: R19.7 Diarrhea, unspecified (principal); Z12.11 Encounter for screening for malignant neoplasm of colon
CPT/HCPCS: 36415; 82653; 82705; 83516; 83993; 84439; 84443; 86140; 87328; 87329

== ENCOUNTER → 2024-03-26 10:52 | Outpatient (REF) | payer MEDICARE, OTHER, SELFPAY | LOC: OLABN 10:52 | PROVIDERS: ATTENDING PHYSICIAN Student in an Organized Health Care Education/Training Program | DX: R19.7 Diarrhea, unspecified (principal); Z12.11 Encounter for screening for malignant neoplasm of colon | CPT/HCPCS: 36415; 87328; 87329 ==

== ENCOUNTER 2024-05-17 05:25 | Inpatient (IN) | payer MEDICARE, OTHER, SELFPAY ==
[2024-05-17] VITALS (12 sets, daily range): BP systolic 98–133; BP diastolic 45–103; PULSE 85–96; O2SAT 95; BMI 24.7
--- NOTE | 2024-05-17 03:22 | ED.GENMED ---
History of Present Illness
General
Chief Complaint: Breathing Problem
Time Seen by Provider: 05/17/24 03:05
History of Present Illness
History of Present Illness:
83-year-old male with history of A-fib on Eliquis, CHF, diabetes presenting to the emergency department for increased difficulty breathing and suspected pneumonia. Patient arrives from nursing facility, where he was noted to have a fever prior to
arrival. He was given Tylenol. He also had a chest x-ray that showed concern for a left lower lobe pneumonia. Patient reports that his breathing has worsened. He is not on any chronic O2. He denies any chest pain. He has had difficulty
expectorating mucus. He denies abdominal pain or GI symptoms. He also notes that he had a fall today, fell over his rollator and landed on his elbow. Denies head injury or loss of consciousness. He has been moving his arm without difficulty.
Denies additional acute medical complaints
Past History
Past History
ED Past Medical History: Arrthythmia (Afib on Eliquis), CAD, CHF (chronic systolic heart failure), CVA, HTN, Hypercholesterolemia, [place] (2010), Psychiatric (depression ), Other (Pulmonary embolism, DVT), Other (GI bleed) and Other (BPH)
ED Past Surgical History: Cardiac (CABG 2009)
Social History
Tobacco: Former smoker
Alcohol: None
Drug: None
Personal:
Living: intermediate (lives with at [facility])
Employment: Retired
Family History
Family History: Other (Noncontributory)
Phy Exam
Physical Exam
Physical Exam:
General: no clinical signs of dehydration, mild increased work of breathing
HEENT: protecting airway
Neck: appears supple
CV: Normal heart rate, regular rhythm
Resp: Mild tachypnea with rhonchorous breath sounds bilaterally
Abd: Soft and non-distended, no tenderness to palpation
Extremities: No deformities, no swelling, no erythema. No deformity to the right elbow. Range of motion intact
Neuro: alert, no focal neurologic deficit
: deferred
Rectal: deferred
Psych: Normal affect
Skin: Intact
Scores
Heart Failure Risk
Heart Failure Risk Score: Not Applicable
Sepsis
Sepsis Screening
Sepsis Assessment: Sepsis
Sepsis Screen
Sepsis Screen: Sepsis
Date: 05/17/24
Time: 06:17
Course
Orders/Labs/Results
Orders:
Orders
05/17/24 03:05
Electrocardiogram (*1) Urgent
Reason for Study: Other
Other Reason for Exam: sepsis
EKG- Treatment ONCE
Urinalysis Reflex To Culture Urgent
0.9% Sodium Chloride 1000 ml [Nss] 1,000 ml IV BOLUS
CR Chest - 2 Views Urgent
Comment:
Reason For Exam: pneumonia
05/17/24 03:35
COVID-19 Antigen Urgent
Source: Nasal Swab
Complete Blood Count/With Diff Urgent
Lactic Acid Q4H
Comment: CANCEL 2nd LACTIC ACID IF 1st LACTIC ACID IS LESS THAN 2
Manual Differential Urgent
Blood Culture Q30M
ALEJA Source: Blood/Venous
Specimen Description:
Influenza A+B Rapid Molecular Urgent
ALEJA Source: Nasal Swab
Specimen Description:
05/17/24 03:50
Cefepime HCl [Maxipime] 2,000 mg IV NOW STA
05/17/24 04:06
Blood Culture Q30M
ALEJA Source: Blood/Venous
Specimen Description:
05/17/24 04:13
Acetaminophen [Tylenol/Feverall] 650 mg .ROUTE .STK-MED ONE
05/17/24 04:18
Comprehensive Metabolic Panel Urgent
Comment: REDRAW
05/17/24 04:24
Acetaminophen [Tylenol/Feverall] 650 mg RECTAL NOW STA
05/17/24 05:13
Admit/Transfer Patient As Directed
Co-Sign Provider:
Level of Care: Inpatient admission
Assign to:: Telemetry
Physician / Group: Ruiz
Diagnosis: LLL Pneumonia, Sepsis
Reason for Telemetry: Arrhythmia
Date to Stop Telemetry: 05/20/24
Time to Stop Telemetry: 11:00
Reason for Hospitalization: LLL Pneumonia, Sepsis
Expected length of stay greater than two midnights?: Yes
ELOS- Estimated Length of Stay in days: 3
I certify the patient meets the requirements for IP care: Yes
PRN Pain Medication Management As Directed
May give lesser potent ordered pain med per pt: Yes
preference::
Protocol:: Medication orders for pain may be administered in a
manner that supports deferring to patient preference
when the pt is:
- Requesting an ordered lesser potent pain medication.
Least to most potent pain medications are defined
as: acetaminophen < NSAID < tramadol < opioids
(morphine, oxycodone, hydromorphone).
- Requesting a lesser dose of the same medication IF
ORDERED.
- Requesting a less intrusive route of administration
if both routes are prescribed by the provider (PO <
IV).
05/17/24 05:15
Code Status As Directed
Resuscitation Status: Do not resuscitate
Based on pt advanced directive or healthcare POA form: Yes
05/17/24 05:16
DNR Bracelet Application ONCE
05/17/24 07:15
Lactic Acid Q4H
Comment: CANCEL 2nd LACTIC ACID IF 1st LACTIC ACID IS LESS THAN 2
05/20/24 11:00
DC Protocol for Telemetry ONCE
Abnormal Lab Results
05/17/24 05/17/24
03:35 04:18
WBC 23.2 H 10^3/uL
(4.8-10.8)
RBC 3.74 L 10^6/uL
(4.70-6.10)
Hgb 9.9 L g/dL
(13.0-18.0)
Hct 29.0 L %
(39.0-52.0)
MCV 77.5 L fL
(80.0-94.0)
MCH 26.5 L pg
(27.0-31.0)
Abs Neuts (Manual) 19.9 H 10^3/uL
(1.4-6.5)
Band Neutrophils 21 H %
(0-3)
Lymphocytes (Manual) 8 L %
(20-51)
BUN 36 H mg/dl
(9-20)
Creatinine 1.6 H mg/dL
(0.7-1.3)
Glucose 106 H mg/dl
(70-99)
Lactic Acid 2.1 H mmol/L
(0.7-2.0)
Alkaline Phosphatase 34 L U/L
(38-126)
Albumin 3.4 L g/dl
(3.5-5.0)
05/17/24 03:35
05/17/24 04:18
Vital Signs
Initial and Last Documented VS:
Initial Vital Signs
Temp Pulse Resp BP Pulse Ox
99.6 F 91 32 133/103 92
05/17/24 03:06 05/17/24 03:06 05/17/24 03:06 05/17/24 03:06 05/17/24 03:06
Last Documented Vital Signs
Temp Pulse Resp BP Pulse Ox
99.6 F 86 38 117/51 90
05/17/24 03:06 05/17/24 04:15 05/17/24 04:15 05/17/24 04:00 05/17/24 04:00
MDM/Problems Addressed
MDM/Problems Addressed:
83-year-old male with history of A-fib on Eliquis, CHF, diabetes presenting for shortness of breath, cough, fever and suspected pneumonia. Vital signs on arrival significant for tachypnea.
On exam, patient is in no acute distress, mild increased work of breathing. Concern for pneumonia. Patient had fever prior to arrival so sepsis is also consideration. For this reason we will obtain laboratory analysis including blood cultures,
lactic acid. Will obtain chest x-ray imaging. Will also send flu and COVID swab. Will start gentle fluids given history of CHF. Regarding fall, no significant signs of trauma. Patient awake, alert, denies any head injury.
04:00 -patient with leukocytosis and lactic acid greater than 2 indicating sepsis. Blood pressure remains stable. Will continue to give fluids as clinically indicated, without indication for full 30 cc/kg fluid bolus. Broad-spectrum antibiotics
ordered for suspected pneumonia.
04:50 -chest x-ray shows concern for left lower lobe pneumonia. Plan for admission for sepsis from pulmonary source.
*EKG
Interpreted by ED Provider?: Yes
EKG Intrepretation Date: 05/17/24
EKG Intrepretation Time: 03:28
Interpretation: normal
Comparison EKG: no changes (08/23/23)
Heart Rate: 84
Rate: normal
Rhythm: sinus
[place]: normal axis
Interval: normal interval
QRS Pattern: normal QRS
Ischemia: no ischemia
*Critical Care Note
Total Time (30-74mins, 75-104mins- exclusive of procedures): Not Applicable
ED Attending Note
-
Portions of this chart may have been created with voice recognition software.� Occasional wrong word or��sound alike� substitutions may have occurred due to the inherent limitations of voice recognition software.
Discharge Plan
Departure
Patient Disposition: Admit
Date of Disposition: 05/17/24
Time of Disposition: 04:52
Presentation/result/management discussed w/ accepting MD/DO: Hospitalist
Patient with high blood pressure during this ER visit?: No
Discharge Problem:
Pneumonia, Sepsis
Interventions
Interventions:
*Risk Screen - Suicide Last Done: 05/17/24 03:20
*General Assessment Last Done: 05/17/24 04:44
*Neglect/Abuse Screening Last Done: 05/17/24 03:20
ED- Fall Risk Assessment Last Done: 05/17/24 03:20
*ED COVID-19 Vaccine History Last Done: 05/17/24 04:44
ED- Cardiac Assessment Last Done: 05/17/24 03:20
ED- Pulmonary Assessment Last Done: 05/17/24 03:20
[2024-05-17 03:48] LABS: Hemoglobin 9.9 g/dL (13.0-18.0); Mean Corp Hgb Conc. 34.1 g/dL (33.0-37.0); Mean Corpuscular Hgb 26.5 pg (27.0-31.0); Mean Corpuscular Volume 77.5 fL (80.0-94.0); Mean Platelet Volume 9.9 fL (7.4-10.4); Platelet Count 177 10^3/uL (130-400); Red Blood Cell Count 3.74 10^6/uL (4.70-6.10); Red Cell Dist. Width 13.5 % (11.5-14.5); White Blood Cell Count 23.2 10^3/uL (4.8-10.8)
[2024-05-17] MEDS: NSS 1000 IV (03:53)
[2024-05-17 04:07] LABS: Lactic Acid 2.1 mmol/L (0.7-2.0)
[2024-05-17 04:17] LABS: COVID-19 Antigen Negative (Negative)
[2024-05-17] MEDS: TYLENOL/FEVERALL 650 MG RECTAL (04:31)
[2024-05-17 04:35] LABS: Absolute Neutrophils -Man Diff 19.9 10^3/uL (1.4-6.5); Band Neutrophils 21 % (0-3); Lymphocytes 8 % (20-51); Metamyelocytes 3 % (-); Monocytes 3 % (2-9); Normal RBC Morphology No; Ovalocytes 1+; Platelets Checked Yes; Segmented Neutrophils 65 % (42-75); Total Cells Counted 100
[2024-05-17 04:36] LABS: Acanthocytes 1+; Target Cells Occasional; Tear Drop Red Blood Cells Occasional; Toxic Granulation Occassional; Vacuolated Segs Occasional
[2024-05-17] MEDS: MAXIPIME 2000 MG IV (04:37)
[2024-05-17 04:39] LABS: ALT (SGPT) 17 U/L (0-50); AST (SGOT) 20 U/L (17-59); Albumin 3.4 g/dl (3.5-5.0); Alkaline Phosphatase 34 U/L (38-126); Blood Urea Nitrogen 36 mg/dl (9-20); Calcium 8.8 mg/dl (8.4-10.2); Carbon Dioxide 26 mmol/L (22-30); Chloride 103 mmol/L (98-107); Estimated Creatinine Clearance 39 ml/min; Glucose 106 mg/dl (70-99); Sodium 141 mmol/L (135-145); Total Bilirubin 0.8 mg/dl (0.2-1.3); Total Protein 6.3 g/dl (6.3-8.2); eGFR 42.22
--- NOTE | 2024-05-17 05:19 | HPS.HSE ---
Family Physician
-
Family Physician: Rick Metcalf DO
Chief Complaint
-
Cough / Weakness
History of Present Illness
Patient is an 83y M with PMH significant for dementia, ASCVD, hypertension and DM-II who presents to ED from [facility] for evaluation of cough, fever and abnormal CXR. History obtained from patient and [facility] record. Patient reportedly was weak and had
a fall at the [facility] on 05/16/24. There was no injury. He was noted to have cough at that time and orders were received for CXR. CXR was obtained and report called to [facility] showing LLL pneumonia. Patient was noted at that time to have fever to 100.7. He
was given Tylenol and transported to the ED for further evaluation.
Patient states that he has had cough for about 2 days. 'Loose', 'junky' cough however patient states that he is not able to expectorate much.
No chest pain. No subjective fevers / chills. No GI or symptoms.
Patient has baseline dementia per records. He offers no other complaints at present.
Medical History
Past Medical History
Past Medical History: Reports Other
Additional Past Medical History:
Coronary Artery Disease s/p CABG
Chronic HFpEF
Paroxysmal Atrial Fibrillation
Essential Hypertension
Diabetes Mellitus, Type II
CKD Stage III
Asthma
Dementia with behavioral disturbance
PUD/GI Bleed
BPH
Overactive Bladder
DVT/PE s/p IVC Filter
Past Surgical History: Reports Other
Additional Past Surgical History:
CABG 2009
Bladder Stone Removal
Social History
Tobacco: Former Smoker
Living: Jail
Family History
Family History: Unable to Obtain
Allergies / Home Medications
Allergies reflects when Allergies were last updated in [employer].
Home Medications with original date entered in [employer]
Allergy/Medication List:
Allergies
Allergy/AdvReac Type Severity Reaction Status Date / Time
ofloxacin [From Floxin] Allergy Rash Verified 05/17/24 03:06
oseltamivir [From Tamiflu] Allergy Anaphylaxis Verified 05/17/24 03:06
Home Medications
acetaminophen 325 mg tablet (Tylenol) 650 mg PO Q4H PRN mild pain/fever>100.4 03/10/22
bisacodyl 10 mg rectal suppository (Dulcolax (bisacodyl)) 10 mg ND [id number] PRN if mom ineffective 03/10/22
carvedilol 3.125 mg tablet (Coreg) 3.125 mg PO BID Blood Pressure 03/10/22
dulaglutide 1.5 mg/0.5 mL subcutaneous pen injector (Trulicity) 1.5 mg SC TH Diabetes 03/10/22
fesoterodine 4 mg tablet,extended release 24 hr (Toviaz) 4 mg PO DAILY Urinary Issue 03/10/22
fluticasone furoate 200 mcg/actuation blister powder for inhalation (Arnuity Ellipta) 1 inh inhalation R DAILY Lung/Breathing Issues 03/10/22
furosemide 20 mg tablet (Lasix) 20 mg PO DAILY Fluid Retention/Swelling 03/10/22
magnesium hydroxide 400 mg/5 mL oral suspension (Milk of Magnesia) 30 ml PO HS PRN constipation 03/10/22
metformin 500 mg tablet 250 mg PO BID@0830,1830 Diabetes 03/10/22
sucralfate 1 gram tablet (Carafate) 1 g PO BID Gastrointestinal Issue 03/10/22
tamsulosin 0.4 mg capsule (Flomax) 0.8 mg PO QPM Urinary Issue 03/10/22
amlodipine 2.5 mg tablet 2.5 mg PO DAILY Blood Pressure 08/21/23
apixaban 2.5 mg tablet 5 mg PO BID Blood Clot Prevention/Tx 08/21/23
divalproex 250 mg tablet,delayed release 250 mg PO BID@0830,1830 Seizures 08/21/23
loperamide 2 mg tablet 2 mg PO BID PRN diarrhea 08/21/23
melatonin 3 mg tablet 3 mg PO HS Sleep 08/21/23
pantoprazole 20 mg tablet,delayed release 20 mg PO HS Gastrointestinal Issue 08/21/23
paroxetine HCl 30 mg tablet 30 mg PO DAILY Mental Health/Anxiety 08/21/23
trazodone 50 mg tablet 50 mg PO HS 08/21/23
cholecalciferol (vitamin D3) 1,250 mcg (50,000 unit) tablet 1,250 mcg PO QMONTH Supplement 08/23/23
guaifenesin 600 mg tablet, extended release 12 hr 1,200 mg (2 x 600 mg) PO Q12 #20 tabs 08/29/23
chlorpheniramine-dextromethorphan 4 mg-30 mg tablet (Coricidin HBP Cough and Cold) 1 tab PO Q6H 05/17/24
insulin degludec 100 unit/mL (3 mL) subcutaneous pen (Tresiba FlexTouch U-100 insulin) 18 unit SC HS 05/17/24
ipratropium 0.5 mg-albuterol 3 mg (2.5 mg base)/3 mL nebulization soln 3 ml inhalation Q6 05/17/24
Review of Systems
-
History Source: Patient and Jail
A 12 point ROS was completed and negative except as noted: Yes
Constitutional: Reports Fever and Fatigue; Denies Chills
EENT: Denies Sore Throat
Respiratory: Reports Cough and Trouble Breathing
Cardiac: Denies Chest Pain or Palpitations
Abdomen/GI: Denies Abdominal Pain, Nausea, Vomiting or Diarrhea
: Denies Dysuria, Frequency or Flank Pain
Musculoskeletal: Denies Joint Pain or Edema
Neurological: Denies Dizzy or Headache
Psych: Reports Dementia
Physical Exam
Vital Signs
Vital Signs
Temp Pulse Resp BP Pulse Ox
99.6 F 86 38 117/51 90
05/17/24 03:06 05/17/24 04:15 05/17/24 04:15 05/17/24 04:00 05/17/24 04:00
Physical Exam
General: Other (83y M in no acute distress.)
HEENT: Moist mucous membranes and PERRLA
Respiratory: Other (Coarse breath sounds at the L base. Cough during exam.)
Cardiac: S1/S2, Regular Rhythm and Murmur (II/ KAUSHAL)
GI: Soft, Non Tender, Non Distended and Normal Bowel Sounds
Musculoskeletal: No Clubbing, No Cyanosis and Other (Trace LE edema.)
Neuro: Awake and Alert
Psych: Apparent Dementia
Laboratory Results
-
05/17/24 03:35
05/17/24 04:18
Laboratory Results
Lactic Acid 2.1 mmol/L (0.7-2.0) H 05/17/24 03:35
Total Bilirubin 0.8 mg/dl (0.2-1.3) 05/17/24 04:18
AST 20 U/L (17-59) 05/17/24 04:18
ALT 17 U/L (0-50) 05/17/24 04:18
Alkaline Phosphatase 34 U/L (38-126) L 05/17/24 04:18
Impression/Plan
-
A/P: Patient is an 83y M with PMH significant for ASCVD, HTN, DM-II and dementia who presents to ED from local [place] for evaluation of cough, fever and abnormal CXR.
LLL Pneumonia
Sepsis secondary to the above
- Admit for further evaluation and treatment.
- Patient presents with fever (100.7 at [facility]), leukocytosis and tachypnea with CXR showing L base pneumonia.
- Abx coverage with ceftriaxone and doxycycline.
- Supportive care including nebs, mucolytics, chest PT, etc.
- Follow for clinical improvement.
- Patient suspected of aspiration during his last admission here - Speech eval for re-assessment.
- Follow for clinical improvement.
RICK on CKD III
- SCr = 1.6 compared to prior baseline of 1.3.
- Likely prerenal due to sepsis.
- Holding diuretics acutely.
- Follow for improvement in renal function.
ASCVD
Chronic HFpEF
- Stable. No complaints of chest pain.
- Hold Lasix acutely given sepsis.
- Follow I/Os, daily weights, etc.
- Continue other CV medications.
Paroxysmal Atrial Fibrillation
- Stable. Continue rate control medications and Elqiuis for stroke risk reduction.
- Monitor on telemetry.
Benign Hypertension
- Hold amlodipine and Lasix acutely given sepsis.
- Resume once BP increases / patient clinically improves.
DM-II
- Stable. Continue basal : bolus insulin regimen.
- Follow glucose and cover with SSI as needed.
- Update A1C.
Asthma
- No active wheezing on exam.
- Continue inhaled medications - especially given current pneumonia.
Senile Dementia with Behavioral Disturbance
- Stable at present without agitation / anxiety.
- Continue current med regimen including Depakote.
- Follow for any acute agitation / decompensation during hospital stay.
Protein S Deficiency
History of DVT / PE
s/p IVC Filter
DVT Prophylaxis
- Continue Eliquis
Code Status: DNR per Advanced Directive / NH Record.
[2024-05-17] MEDS: VANCOCIN 530 MG IV (06:02)
[2024-05-17] MEDS: DUONEB 3 ML INH ×4 (07:59→19:56)
[2024-05-17 08:45] LABS: Lactic Acid 1.2 mmol/L (0.7-2.0)
[2024-05-17 09:18] LABS: Total Iron Binding Capacity 276 ug/dl (261-462)
[2024-05-17 09:24] LABS: Iron < 20 ug/dl (49-181)
[2024-05-17 10:14] LABS: Glucose - Point of Care 107 mg/dl (70-99)
[2024-05-17] MEDS: NOVOLOG FLEXPEN-LOW RESISTANCE SC (10:15)
[2024-05-17] MEDS: DEPAKOTE (12 HR RELEASE) 250 MG PO ×2 (10:16→18:04)
[2024-05-17] MEDS: ELIQUIS 2.5 MG PO ×2 (10:16→20:35)
[2024-05-17] MEDS: VIBRAMYCIN 100 MG PO ×2 (10:16→20:35)
[2024-05-17] MEDS: MUCINEX 1200 MG PO ×2 (10:16→20:35)
[2024-05-17] MEDS: COREG 3.125 MG PO ×2 (10:17→20:36)
[2024-05-17] MEDS: ROCEPHIN 1000 MG IV (10:18)
[2024-05-17] MEDS: PAXIL 30 MG PO (10:18)
[2024-05-17] MEDS: STERILE WATER FOR INJECTION 10 ML IV (10:18)
--- NOTE | 2024-05-17 10:57 | W.PN.UPDATE ---
Update Note
Progress Note Update
Seen and examined independent of overnight physician. Nonbillable note.
Sitting in chair. States of improvement in cough. On oxygen.
General: Other (83y M in no acute distress.)
HEENT: Moist mucous membranes and PERRLA
Respiratory: Other (Coarse breath sounds at the L base. Cough during exam.)
Cardiac: S1/S2, Regular Rhythm and Murmur (II/ KAUSHAL)
GI: Soft, Non Tender, Non Distended and Normal Bowel Sounds
Musculoskeletal: No Clubbing, No Cyanosis and Other (Trace LE edema.)
Neuro: Awake and Alert
Psych: Apparent Dementia
A/P: Patient is an 83y M with PMH significant for ASCVD, HTN, DM-II and dementia who presents to ED from local [place] for evaluation of cough, fever and abnormal CXR.
LLL Pneumonia
Sepsis secondary to the above
- Patient presents with fever (100.7 at [facility]), leukocytosis and tachypnea with CXR showing L base pneumonia.
- Abx coverage with ceftriaxone and doxycycline.
- Supportive care including nebs, mucolytics, chest PT, etc.
- Follow for clinical improvement.
- Patient suspected of aspiration during his last admission here - Speech eval for re-assessment.
- Follow for clinical improvement.
RICK on CKD III
- SCr = 1.6 compared to prior baseline of 1.3.
- Likely prerenal due to sepsis.
- Holding diuretics acutely.
- Follow for improvement in renal function.
ASCVD
Chronic HFpEF
- Stable. No complaints of chest pain.
- Hold Lasix acutely given sepsis.
- Follow I/Os, daily weights, etc.
- Continue other CV medications.
Paroxysmal Atrial Fibrillation
- Stable. Continue rate control medications and Elqiuis for stroke risk reduction.
- Monitor on telemetry.
Benign Hypertension
- Hold amlodipine and Lasix acutely given sepsis.
- Resume once BP increases / patient clinically improves. BP 103/50
DM-II
- Stable. Continue basal : bolus insulin regimen.
- Follow glucose and cover with SSI as needed.
- Update A1C.
Asthma
- No active wheezing on exam.
- Continue inhaled medications - especially given current pneumonia.
Senile Dementia with Behavioral Disturbance
- Stable at present without agitation / anxiety.
- Continue current med regimen including Depakote.
- Follow for any acute agitation / decompensation during hospital stay.
Protein S Deficiency
History of DVT / PE
s/p IVC Filter
DVT Prophylaxis
- Continue Eliquis
Code Status: DNR per Advanced Directive / NH Record.
--- NOTE | 2024-05-17 12:00 | PTOTSP ---
Speech Language Pathology
Pt seen for clinical bedside swallow evaluation. Three previous VSEs completed: 08/25/23= silent aspiration of consecutive sips of thin liquids with recommendations for regular solids/thin liquids via single cup sips only; 10/19/17 (regular
solids/thin liquids); 09/21/17 (soft solids/mildly thick liquids).
This date, seen with lunch tray. P.O. trials of soft solids (spaghetti), thin liquids, and mildly thick liquids provided. Prolonged mastication with oral residue to which pt was not sensate. He was able to clear this with verbal cueing. Frequent
coughing noted at baseline and with P.O. intake. No increase in frequency or type of cough. Given hx of silent aspiration, presentation with P.O. trials, and current PNA, will initiate modified diet.
Recommend:
(1) IDDSI Level 5 (minced/moist) solids and mildly thick liquids
(2) Aspiration precautions: sit upright, slow rate, full supervision with assist as needed, ensure oral cavity clear post P.O. intake
(3) Meds as tolerated
(4) Allow ice chips between meals post oral care given supervision
(5) LIGHT OUT EXAMINER to continue to follow
[2024-05-17 12:17] LABS: Glucose - Point of Care 222 mg/dl (70-99)
[2024-05-17] MEDS: NOVOLOG FLEXPEN-LOW RESISTANCE 2 UNITS SC (12:28)
--- NOTE | 2024-05-17 13:46 | CM ---
Alert awake patient who lives [facility] at [facility]. He is assisted in all activities of daily living.Spoke with his dgt Kiana and Carina [facility] liaison. He uses a rolling walker .
Pharmacy CSP at [facility]
PCP DR Metcalf
PLAN Return to [facility]
report [phone]
fax [phone]
[2024-05-17 16:37] LABS: Glucose - Point of Care 190 mg/dl (70-99)
[2024-05-17] MEDS: NOVOLOG FLEXPEN-LOW RESISTANCE 1 UNITS SC (18:03)
[2024-05-17] MEDS: FLOMAX 0.8 MG PO (18:04)
[2024-05-17] MEDS: TYLENOL 650 MG PO (20:35)
[2024-05-17 21:23] LABS: Glucose - Point of Care 165 mg/dl (70-99)
[2024-05-17] MEDS: DESYREL 50 MG PO (22:02)
[2024-05-17] MEDS: PROTONIX 20 MG PO (22:02)
[2024-05-17] MEDS: LANTUS 0.14 UNITS SC (22:28)
[2024-05-18] VITALS (7 sets, daily range): BP systolic 126–136; BP diastolic 54–92; PULSE 75–83; O2SAT 100; BMI 24.1
[2024-05-18 05:55] LABS: Hematocrit 26.3 % (39.0-52.0); Hemoglobin 8.8 g/dL (13.0-18.0); Mean Corp Hgb Conc. 33.5 g/dL (33.0-37.0); Mean Corpuscular Hgb 27.3 pg (27.0-31.0); Mean Corpuscular Volume 81.7 fL (80.0-94.0); Platelet Count 147 10^3/uL (130-400); Red Blood Cell Count 3.22 10^6/uL (4.70-6.10); Red Cell Dist. Width 13.9 % (11.5-14.5); White Blood Cell Count 15.3 10^3/uL (4.8-10.8)
[2024-05-18 06:22] LABS: Blood Urea Nitrogen 44 mg/dl (9-20); Calcium 8.3 mg/dl (8.4-10.2); Carbon Dioxide 23 mmol/L (22-30); Chloride 105 mmol/L (98-107); Estimated Creatinine Clearance 39 ml/min; Glucose 86 mg/dl (70-99); Potassium 3.6 mmol/L (3.5-5.1); Sodium 140 mmol/L (135-145); eGFR 42.22
[2024-05-18] MEDS: DUONEB 3 ML INH ×4 (07:31→19:57)
[2024-05-18 07:44] LABS: Glucose - Point of Care 94 mg/dl (70-99)
[2024-05-18] MEDS: NOVOLOG FLEXPEN-LOW RESISTANCE SC (08:11)
[2024-05-18] MEDS: DEPAKOTE (12 HR RELEASE) 250 MG PO ×2 (08:17→17:31)
[2024-05-18] MEDS: ELIQUIS 2.5 MG PO ×2 (08:17→20:51)
[2024-05-18] MEDS: VIBRAMYCIN 100 MG PO ×2 (08:17→20:51)
[2024-05-18] MEDS: ROCEPHIN 1000 MG IV (08:18)
[2024-05-18] MEDS: PAXIL 30 MG PO (08:19)
[2024-05-18] MEDS: MUCINEX 1200 MG PO ×2 (08:19→20:51)
[2024-05-18] MEDS: COREG 3.125 MG PO ×2 (08:19→20:51)
[2024-05-18] MEDS: STERILE WATER FOR INJECTION 10 ML IV (08:19)
[2024-05-18 08:55] LABS: Glycohemoglobin (HgbA1c) 6.4 % (4.0-5.6)
[2024-05-18 11:50] LABS: Glucose - Point of Care 159 mg/dl (70-99)
--- NOTE | 2024-05-18 12:14 | W.PN.HOSP.TC ---
Today's Communication/Plan
-
IV abx
BC
OOB
CM
Assessment / Plan
Assessment / Plan
General: sitting in chair,
HEENT: Moist mucous membranes and PERRLA
Respiratory: Other (Coarse breath sounds at the L base. imrpoving
Cardiac: S1/S2, Regular Rhythm and Murmur (II/ KAUSHAL)
GI: Soft, Non Tender, Non Distended and Normal Bowel Sounds
Musculoskeletal: No Clubbing, No Cyanosis and Other (Trace LE edema.)
Neuro: Awake and Alert
Psych: Apparent Dementia
A/P: Patient is an 83y M with PMH significant for ASCVD, HTN, DM-II and dementia who presents to ED from local [place] for evaluation of cough, fever and abnormal CXR.
LLL Pneumonia
Sepsis secondary to the above
Acute hypoxic resp insufficiency
Hx of tobacco abuse
- Patient presents with fever (100.7 at [place]), leukocytosis and tachypnea with CXR showing L base pneumonia.
- Abx coverage with ceftriaxone and doxycycline.
- Supportive care including nebs, mucolytics, chest PT, etc.
- Follow for clinical improvement. Blood culture negative so far
- Patient suspected of aspiration during his last admission here - Speech eval for re-assessment.
- Follow for clinical improvement.
Elevated cr w/ CKD III
- SCr = 1.6 compared to prior baseline of 1.3.
- Likely prerenal due to sepsis.
- Holding diuretics acutely.
- Follow for improvement in renal function.
ASCVD
Chronic HFpEF
- Stable. No complaints of chest pain.
- Hold Lasix for today.
- Follow I/Os, daily weights, etc.
- Continue other CV medications.
Paroxysmal Atrial Fibrillation
- Stable. Continue rate control medications and Elqiuis for stroke risk reduction.
- Monitor on telemetry. Elqiuis dose adjusted
Benign Hypertension
- Hold amlodipine and can probaly stop it as Bp well controlled
DM-II
- Stable. Continue basal : bolus insulin regimen.
- Follow glucose and cover with SSI as needed.
- Update A1C at 6.4.
Senile Dementia with Behavioral Disturbance
- Stable at present without agitation / anxiety.
- Continue current med regimen including Depakote.
- Follow for any acute agitation / decompensation during hospital stay.
Protein S Deficiency
History of DVT / PE
s/p IVC Filter
DVT Prophylaxis
- Continue Eliquis
Code Status: DNR per Advanced Directive / NH Record.
PT/OT-SNF. CM aware. start dispo
Anticipated Discharge: Within 24 hours
Subjective/Interval History
-
Date of Service: May 18, 2024
remains on oxygen
states of ongoing cough but improvement
Objective Data
-
Labs:
Laboratory Results
05/18/24
05:33
WBC 15.3 H
Hgb 8.8 L
Hct 26.3 L
Plt Count 147
Sodium 140
Potassium 3.6
Chloride 105
Carbon Dioxide 23
BUN 44 H
Creatinine 1.6 H
Glucose 86
Calcium 8.3 L
Vital Signs:
Vital Signs
Temp Pulse Resp BP Pulse Ox
98.9 F 80 18 136/63 98
05/18/24 08:20 05/18/24 11:34 05/18/24 11:34 05/18/24 08:20 05/18/24 11:34
I&O
05/17/24 05/18/24 05/19/24
06:59 06:59 06:59
Intake Total 1000 / 1000 360 / 360 120 / 120
Balance 1000 / 1000 360 / 360 120 / 120
Data Reviewed
-
Total Time Spent with Patient (in minutes): 52
[2024-05-18] MEDS: NOVOLOG FLEXPEN-LOW RESISTANCE 1 UNITS SC (12:43)
--- NOTE | 2024-05-18 12:54 | CM ---
Chart reviewed and disease case manager rn reached at to Carina in admissions at [facility][1] and made her aware that patient is for possible discharge tomorrow back to [facility][1]. Needs Ambulance, oxygen.
[facility]
Report [phone]
[2024-05-18 16:53] LABS: Glucose - Point of Care 386 mg/dl (70-99)
[2024-05-18] MEDS: NOVOLOG FLEXPEN-LOW RESISTANCE 5 UNITS SC (17:26)
[2024-05-18] MEDS: FLOMAX 0.8 MG PO (17:26)
[2024-05-18] MEDS: PROTONIX 20 MG PO (20:52)
[2024-05-18] MEDS: DESYREL 50 MG PO (21:07)
[2024-05-18 21:36] LABS: Glucose - Point of Care 259 mg/dl (70-99)
[2024-05-18] MEDS: LANTUS 0.14 UNITS SC (21:36)
[2024-05-19 03:41] VITALS: BP 133/72
[2024-05-19 05:58] VITALS: BMI 23.9
[2024-05-19 07:25] VITALS: BP 130/55
[2024-05-19 07:48] LABS: Glucose - Point of Care 134 mg/dl (70-99)
[2024-05-19] MEDS: NOVOLOG FLEXPEN-LOW RESISTANCE SC ×2 (07:57→11:54)
[2024-05-19] MEDS: PAXIL 30 MG PO (07:58)
[2024-05-19] MEDS: MUCINEX 1200 MG PO (07:58)
[2024-05-19] MEDS: COREG 3.125 MG PO (07:58)
[2024-05-19] MEDS: ELIQUIS 2.5 MG PO (07:58)
[2024-05-19] MEDS: VIBRAMYCIN 100 MG PO (07:58)
[2024-05-19] MEDS: STERILE WATER FOR INJECTION 10 ML IV (07:59)
[2024-05-19] MEDS: ROCEPHIN 1000 MG IV (07:59)
[2024-05-19] MEDS: DUONEB 3 ML INH ×3 (08:14→15:49)
[2024-05-19] MEDS: DEPAKOTE (12 HR RELEASE) 250 MG PO (08:15)
[2024-05-19 11:21] VITALS: BP 134/55
--- NOTE | 2024-05-19 11:25 | W.PN.HOSP.TC ---
Addendum entered and electronically signed by Deuce Juarez MD 05/19/24 12:41:
Patient blood pressure slowly uptrending and okay to restart low-dose of Norvasc. Patient creatinine at 1.5. Patient on Eliquis with history of atrial fibrillation and continue with low-dose Eliquis 2.5 mg twice daily.
Repeat BMP as outpatient.
More than 30 minutes spent in discharge including
Final examination of the patient
Summarizing hospital stay
Instructions for continuing care to all relevant caregivers
Preparation of discharge records, prescriptions, and referral forms
Total time spent (in minutes): 52
Original Note:
Today's Communication/Plan
-
await labs for Cr
po abx on dc
Assessment / Plan
Assessment / Plan
General: sitting in chair,
HEENT: Moist mucous membranes
Respiratory: dec bs but no wheezing or crackles
Cardiac: S1/S2, Regular Rhythm and Murmur (II/ KAUSHAL)
GI: Soft, Non Tender, Non Distended and Normal Bowel Sounds
Musculoskeletal: No Clubbing, No Cyanosis and Other (Trace LE edema.)
Neuro: Awake and Alert
Psych: Apparent Dementia
A/P: Patient is an 83y M with PMH significant for ASCVD, HTN, DM-II and dementia who [place] [facility] [place] [facility] for evaluation of cough, fever and abnormal CXR.
LLL Pneumonia
Sepsis secondary to the above
Acute hypoxic resp insufficiency
Hx of tobacco abuse
- Patient [facility] with [facility] ([facility]7 [facility]), leukocytosis and tachypnea with CXR showing L base pneumonia.
- Abx coverage with ceftriaxone and doxycycline. Switch to po abx on dc.
- Supportive care including nebs, mucolytics, chest PT, etc.
- Follow for clinical improvement. Blood culture negative so far
- Patient suspected of aspiration during his last admission here - Speech eval for re-assessment.
- Follow for clinical improvement.
Elevated cr w/ CKD III
- SCr = 1.6. Last cr in 11/03 at 1.3. Await lab
- Likely prerenal due to sepsis.
-tolerating diet and voiding without difficulty.
-OP repeat BMP early next week
CAD
Chronic HFpEF
- Stable. No complaints of chest pain.
- Follow I/Os, daily weights, etc.
- Continue other CV medications.
Paroxysmal Atrial Fibrillation
- Stable. Continue rate control medications and Eliquis for stroke risk reduction.
- Monitor on telemetry. Eliquis dose adjusted based on CrCl
Benign Hypertension
- DC amlodipine as Bp well controlled
DM-II
- Stable. Continue basal : bolus insulin regimen.
- Follow glucose and cover with SSI as needed.
- Update A1C at 6.4.
Senile Dementia with Behavioral Disturbance
- Stable at present without agitation / anxiety.
- Continue current med regimen including Depakote.
- Follow for any acute agitation / decompensation during hospital stay.
Protein S Deficiency
History of DVT / PE
s/p IVC Filter
DVT Prophylaxis
- Continue Eliquis
Code Status: DNR per Advanced Directive / NH Record.
PT/OT-SNF. CM aware.
Anticipated Discharge: Today
Subjective/Interval History
-
Date of Service: May 19, 2024
on room air
afebrile
improvement in cough
Objective Data
-
Vital Signs:
Vital Signs
Temp Pulse Resp BP Pulse Ox
98.3 F 57 16 134/55 95
05/19/24 11:21 05/19/24 11:24 05/19/24 11:24 05/19/24 11:21 05/19/24 11:24
I&O
11/06/24 11/07/24 11/08/24
06:59 06:59 06:59
Intake Total 360 / 360 1440 / 1440
Output Total 300 / 300
Balance 360 / 360 1140 / 1140
[2024-05-19 11:54] LABS: Glucose - Point of Care 147 mg/dl (70-99)
--- NOTE | 2024-05-19 11:57 | CM ---
Patient will be cleared for transfer back to [facility] today, case reviewer spoke with admissions at [facility].
Plan; Patient to return to [facility]
Report [phone]
[2024-05-19 12:24] LABS: Blood Urea Nitrogen 36 mg/dl (9-20); Calcium 8.5 mg/dl (8.4-10.2); Carbon Dioxide 25 mmol/L (22-30); Chloride 105 mmol/L (98-107); Estimated Creatinine Clearance 41 ml/min; Glucose 156 mg/dl (70-99); Sodium 139 mmol/L (135-145); eGFR 45.62
--- NOTE | 2024-05-19 12:40 | W.DCSUMMARY ---
Discharge Summary
Discharge Data
Date of Admission: 05/17/24
Date of Discharge: 05/19/24
-
Pending Results: No
Hospital Course
83-year-old male past medical history of CAD, hypertension, diabetes, dementia who presents to ED from local [place] for evaluation of cough, fever and abnormal CXR. Found to be sepsis. Patient was started on supportive care including nebulizer
mucolytic's and chest PT. Patient was also found to acute hypoxic respiratory insufficiency. Patient was on IV antibiotics. Patient was able to be weaned off the oxygen. Patient was also found to have elevated creatinine slowly down trended. It
was seemingly secondary to prerenal due to sepsis. Patient blood pressure initially was low however started to slowly uptrend. Patient also was found to be elevated creatinine and thus Eliquis dose was adjusted for atrial fibrillation. Patient
was evaluated by PT and OT and will be discharged to [facility] on p.o. antibiotics. Recommend repeat BMP via PCP.
Discharge Plan
-
Patient Disposition: Senior Living/SNF
Discharge Diagnosis/Procedures: Sepsis secondary to pneumonia
Elevated creatinine
Condition: Fair
Diet: Regular
Activity: With assistance and As tolerated
Driving Restrictions: Not until seen by your Dr
Blood Work: BMP in 3 to 5 days with primary doctor
Referrals:
Rick Metcalf DO [Family Provider] - in less than 1 week
Prescriptions:
New
doxycycline hyclate 100 mg Capsule
100 mg PO Q12 5 Days Qty: 10 0RF
cefdinir 300 mg capsule
300 mg PO Q12H 4 Days Qty: 8 0RF
Continued
metformin 500 mg Tablet
250 mg PO BID@0830,1830
acetaminophen [Tylenol] 325 mg Tablet
650 mg PO Q4HPRN PRN (Reason: mild pain/fever>100.4)
sucralfate [Carafate] 1 gram Tablet
1 g PO BID
carvedilol [Coreg] 3.125 mg Tablet
3.125 mg PO BID
magnesium hydroxide [Milk of Magnesia] 400 mg/5 mL Suspension
30 ml PO HSPRN PRN (Reason: constipation)
tamsulosin [Flomax] 0.4 mg Capsule
0.8 mg PO QPM
bisacodyl [Dulcolax (bisacodyl)] 10 mg Suppository
10 mg LA [id number] PRN (Reason: if mom ineffective)
fesoterodine [Toviaz] 4 mg Tablet Extended Release 24 Hr
4 mg PO DAILY
Arnuity Ellipta 200 mcg/actuation Blister With Device
1 inh INHALATION R DAILY
Trulicity 1.5 mg/0.5 mL Pen Injector
1.5 mg SC TH
divalproex 250 mg Tablet,Delayed Release (Dr/Ec)
250 mg PO BID@0830,1830
trazodone 50 mg Tablet
50 mg PO HS
amlodipine 2.5 mg tablet
2.5 mg PO DAILY
melatonin 3 mg Tablet
3 mg PO HS
pantoprazole 20 mg Tablet,Delayed Release (Dr/Ec)
20 mg PO HS
paroxetine HCl 30 mg Tablet
30 mg PO DAILY
cholecalciferol (vitamin D3) 1,250 mcg (50,000 unit) Tablet
1,250 mcg PO QMONTH
Rx Instructions:
Thursday of each month
ipratropium-albuterol 0.5 mg-3 mg(2.5 mg base)/3 mL solution for nebulization
3 ml inhalation R QID
Rx Instructions:
Q6h x 7 days then PRN
dextromethorphan-guaifenesin [Diabetic Tussin DM] 10-100 mg/5 mL Liquid
10 ml PO Q4HPRN PRN (Reason: cough)
Changed
apixaban 2.5 mg Tablet
2.5 mg PO BID Qty: 0 0RF
insulin degludec [Tresiba FlexTouch U-100] 100 unit/mL (3 mL) Insulin Pen
14 unit SC HS Qty: 0 0RF
Held
furosemide [Lasix] 20 mg Tablet
20 mg PO DAILY
Hold Instructions: Resume on 05/23/24.
Discontinued
loperamide 2 mg Tablet
2 mg PO BIDPRN PRN (Reason: diarrhea)
Rx Instructions:
give after each loose stool. max 2 tabs 24 hrs
Coricidin HBP Cough and Cold 4-30 mg Tablet
1 tab PO Q6H
Rx Instructions:
for 7 days first dose 1800 05/16/24
Discharge Orders:
Discharge Patient (As Directed); Ordered 05/19/24
Ordered By: Deuce Juarez
Discharge Date and Time
Print Language: GERMAN
[2024-05-19 15:17] VITALS: BP 126/59
== END 2024-05-19 16:46 | DRG 871 ==
LOC: 3 WEST ACU 05:25
PROVIDERS: ADMITTING PHYSICIAN Hospitalist; ATTENDING PHYSICIAN Hospitalist; EMERGENCY PHYSICIAN Student in an Organized Health Care Education/Training Program; FAMILY PHYSICIAN Student in an Organized Health Care Education/Training Program
DX: A41.89 Other specified sepsis (principal); J18.9 Pneumonia, unspecified organism; I50.32 Chronic diastolic (congestive) heart failure; I13.0 Hypertensive heart and chronic kidney disease with heart failure and stage 1 through stage 4 chronic kidney disease, or unspecified chronic kidney disease; N17.9 Acute kidney failure, unspecified; F03.918 Unspecified dementia, unspecified severity, with other behavioral disturbance; D68.59 Other primary thrombophilia; Z66 Do not resuscitate; I25.10 Atherosclerotic heart disease of native coronary artery without angina pectoris; N18.30 Chronic kidney disease, stage 3 unspecified; J45.909 Unspecified asthma, uncomplicated; N32.81 Overactive bladder; R06.89 Other abnormalities of breathing; R09.02 Hypoxemia; E11.22 Type 2 diabetes mellitus with diabetic chronic kidney disease; E78.00 Pure hypercholesterolemia, unspecified; I25.2 Old myocardial infarction; N40.0 Benign prostatic hyperplasia without lower urinary tract symptoms; I48.0 Paroxysmal atrial fibrillation; Z11.52 Encounter for screening for COVID-19; Z95.1 Presence of aortocoronary bypass graft; Z87.891 Personal history of nicotine dependence; Z86.718 Personal history of other venous thrombosis and embolism; Z86.711 Personal history of pulmonary embolism; Z95.828 Presence of other vascular implants and grafts; Z79.01 Long term (current) use of anticoagulants; Z79.84 Long term (current) use of oral hypoglycemic drugs; Z79.4 Long term (current) use of insulin; Z79.85 Long-term (current) use of injectable non-insulin antidiabetic drugs
CPT/HCPCS: 71046; 80048; 80053; 82962; 83036; 83540; 83550; 83605; 85025; 85027; 87040; 87070; 87502; 87811; 92610; 93005; 94640; 94667; 96361; 96374; 97116; 97162; 97166; 99285

== ENCOUNTER → 2024-05-24 10:21 | Outpatient (REF) | payer MEDICARE, OTHER, SELFPAY ==
[2024-05-24 11:25] LABS: Blood Urea Nitrogen 21 mg/dl (9-20); Calcium 8.3 mg/dl (8.4-10.2); Carbon Dioxide 30 mmol/L (22-30); Chloride 101 mmol/L (98-107); Glucose 111 mg/dl (70-99); Potassium 4.1 mmol/L (3.5-5.1); Sodium 138 mmol/L (135-145); eGFR 54.17
== END ==
LOC: OLABN 10:21
PROVIDERS: ATTENDING PHYSICIAN Student in an Organized Health Care Education/Training Program
DX: I10 Essential (primary) hypertension (principal)
CPT/HCPCS: 36415; 80048

== ENCOUNTER → 2024-07-18 13:24 | Outpatient (REF) | payer MEDICARE, OTHER, SELFPAY | LOC: HWRCS 13:24 | PROVIDERS: ATTENDING PHYSICIAN Internal Medicine Interventional Cardiology; FAMILY PHYSICIAN Student in an Organized Health Care Education/Training Program | DX: I35.0 Nonrheumatic aortic (valve) stenosis (principal) | CPT/HCPCS: 93306 ==

== ENCOUNTER → 2024-07-26 09:35 | Outpatient (REF) | payer MEDICARE, OTHER, SELFPAY ==
[2024-07-26 10:39] LABS: ALT (SGPT) < 10 U/L (0-50); AST (SGOT) 13 U/L (17-59); Alkaline Phosphatase 43 U/L (38-126); Blood Urea Nitrogen 9 mg/dl (9-20); Calcium 8.3 mg/dl (8.4-10.2); Carbon Dioxide 32 mmol/L (22-30); Chloride 99 mmol/L (98-107); Glucose 77 mg/dl (70-99); HDL Cholesterol 28 mg/dl; LDL Cholesterol, Calculated 83 mg/dl; Potassium 4.5 mmol/L (3.5-5.1); Sodium 136 mmol/L (135-145); Total Bilirubin 0.4 mg/dl (0.2-1.3); Total Cholesterol 131 mg/dl (50-199); Total Protein 5.9 g/dl (6.3-8.2); Triglyceride 101 mg/dl (10-149); Very Low Density Lipoprotein 20 mg/dl (0-30); eGFR > 60.00
== END ==
LOC: OLABN 09:35
PROVIDERS: ATTENDING PHYSICIAN Student in an Organized Health Care Education/Training Program
DX: E78.2 Mixed hyperlipidemia (principal)
CPT/HCPCS: 36415; 80053; 80061

== ENCOUNTER → 2024-07-30 13:41 | Outpatient (REF) | payer MEDICARE, OTHER, SELFPAY | LOC: OLABN 13:41 | PROVIDERS: ATTENDING PHYSICIAN Student in an Organized Health Care Education/Training Program | DX: R09.89 Other specified symptoms and signs involving the circulatory and respiratory systems (principal) | CPT/HCPCS: 87502 ==

== ENCOUNTER 2024-08-04 20:58 | Inpatient (IN) | payer MEDICARE, OTHER, SELFPAY ==
[2024-08-04] VITALS (10 sets, daily range): BP systolic 120–146; BP diastolic 49–73; BMI 23.4; BMI 22.4
--- NOTE | 2024-08-04 16:18 | ED.GENMED ---
History of Present Illness
<Sanjana Harp PA-C - Last Filed: 08/04/24 21:22>
General
Chief Complaint: Change in Mental Status
Source: patient
Exam Limitations: clinical condition
Time Seen by Provider: 08/04/24 15:02
Nursing documentation reviewed up to this point in time: agreed with
History of Present Illness
History of Present Illness:
Patient is an 83-year-old male with history hypertension, hyperlipidemia, CAD, diabetes presenting to the emergency department from nursing facility via EMS for evaluation of altered mental status. Patient unable contribute much to history given
altered mental status. Apparently flu has been circulating on nursing facility. Daughter states that she has noticed that her father seems gradually more confused the past few days and has had recent cough, as well. Apparently�did have a
low-grade temp at the nursing facility as well yesterday. No known recent falls.
Patient is a somewhat poor historian�she does deny any current complaints including chest pain, shortness of breath, headache.
Patient is on Eliquis.
Past History
<Sanjana Harp PA-C - Last Filed: 08/04/24 21:22>
Past History
ED Past Medical History: Arrthythmia (Afib on Eliquis), CAD, CHF (chronic systolic heart failure), CVA, HTN, Hypercholesterolemia, [place] (2009), Psychiatric (depression ), Other (Pulmonary embolism, DVT), Other (GI bleed) and Other (BPH)
ED Past Surgical History: Cardiac (CABG 2009)
Social History
Tobacco: Former smoker
Alcohol: None
Drug: None
Personal:
Living: correction (lives with at [facility])
Employment: Retired
Family History
Family History: Other (Noncontributory)
Review of Systems
<Sanjana Harp PA-C - Last Filed: 08/04/24 21:22>
Review of Systems
Allergies reviewed?: Yes
All Other Systems: ROS reviewed and negative except as documented in HPI and ROS
Phy Exam
<Sanjana Harp PA-C - Last Filed: 08/04/24 21:22>
Physical Exam
Physical Exam:
Vitals: Patient's vital signs are stable. Afebrile
General: Patient is acutely ill-appearing.
Skin: Warm and dry, no rashes or lesions
Head: Normocephalic, atraumatic
Eyes: Sclera nonicteric. EOMs intact. No nystagmus.
Throat: Protecting airway
Neck: Normal ROM, no cervical spine tenderness, no meningismus
Cardiac: Regular rate and rhythm, no murmurs.
Pulm: O2 saturation 95 on room air. Mildly increased respiratory effort. Scattered rhonchi bilaterally with frequent cough
Abdomen: Abdomen soft. No abdominal tenderness.
Extremities: No evidence of cyanosis or edema. Palpable DP pulses bilaterally
Neuro: AAOx3. Grossly intact.
Psychiatric: Normal affect.
Course
<Sanjana Harp PA-C - Last Filed: 08/04/24 21:22>
Orders/Labs/Results
Orders:
Orders
08/04/24 14:34
Chest [CR Chest - 2 Views ] Urgent
Comment:
Reason For Exam: cough flu postitive
08/04/24 15:37
Electrocardiogram (*1) Urgent
Reason for Study: Fatigue / Weakness
CT Head W/o Iv Contrast Urgent
Comment:
Reason For Exam: AMS on eliquis
EKG- Treatment ONCE
08/04/24 17:28
COVID-19 Antigen Urgent
Source: Nasal Swab
Complete Blood Count/With Diff Urgent
Comprehensive Metabolic Panel Urgent
Lactic Acid Q4H
Comment: CANCEL 2nd LACTIC ACID IF 1st LACTIC ACID IS LESS THAN 2
NT-proBNP Urgent
Troponin I Urgent
08/04/24 17:30
Influenza A+B Rapid Molecular Urgent
ALEJA Source: Nasal Swab
Specimen Description:
08/04/24 18:36
Straight cath- Treatment ONCE
Acetaminophen [Tylenol] 650 mg PO NOW STA
08/04/24 18:55
Urinalysis Reflex To Culture Urgent
Date Specimen was Collected: 08/04/24
Time Specimen was Collected: 18:54
Urine Microscopic Reflex Cult Urgent
Urine Culture Urgent
ALEJA Source: U
Specimen Description:
Date Specimen was Collected: 08/04/24
Time Specimen was Collected: 18:54
08/04/24 19:29
Cefepime HCl [Maxipime] 2,000 mg IV NOW STA
08/04/24 20:02
Admit/Transfer Patient As Directed
Co-Sign Provider:
Level of Care: Inpatient admission
Assign to:: Telemetry
Physician / Group: Ruiz
Diagnosis: RLL Pneumonia
Reason for Telemetry: Arrhythmia
Date to Stop Telemetry: 08/07/24
Time to Stop Telemetry: 11:00
Reason for Hospitalization: RLL Pneumonia
Expected length of stay greater than two midnights?: Yes
ELOS- Estimated Length of Stay in days: 3
I certify the patient meets the requirements for IP care: Yes
PRN Pain Medication Management As Directed
May give lesser potent ordered pain med per pt: Yes
preference::
Protocol:: Medication orders for pain may be administered in a
manner that supports deferring to patient preference
when the pt is:
- Requesting an ordered lesser potent pain medication.
Least to most potent pain medications are defined
as: acetaminophen < NSAID < tramadol < opioids
(morphine, oxycodone, hydromorphone).
- Requesting a lesser dose of the same medication IF
ORDERED.
- Requesting a less intrusive route of administration
if both routes are prescribed by the provider (PO <
IV).
08/04/24 20:05
Code Status As Directed
Resuscitation Status: Do not resuscitate
Based on pt advanced directive or healthcare POA form: Yes
08/04/24 20:06
DNR Bracelet Application ONCE
08/04/24 20:20
Vancomycin [Vancocin] 2,000 mg 0.9% Sodium Chloride 500 ml [Nss] 500 ml IV NOW
08/04/24 22:00
Acetaminophen [Tylenol] 650 mg PO Q4HPRN PRN
Dextrose 50%-Water [Dextrose 50% Syringe] 12.5 grams IV [id number] PRN
Glucagon [GlucaGen] 1 mg IM PRN PRN
Ipratropium/Albuterol Sulfate [Duoneb] 3 ml INH R Q6HPRN PRN
Sennosides [Senokot] 17.2 mg PO HS
Trazodone [Desyrel] 50 mg PO HS
insulin glargine 14 unit SC HS
08/04/24 22:00
Activity As Directed
Activity Level: Ambulate
With Assistance
Bedside Glucose Monitoring As Directed
Frequency: AC&HS
Additional Instructions:: Change to q6h if pt on TPN, tube feeding or not eating
Bladder Scan As Directed
Follow Bladder Retention/Intermittent Cath Algorithm?: Yes
PRN if no void in __ hours: 6
Frequency: Per Retention Algorithm
If Bladder Scan Result >: 400
then:: Straight cath
I/O [Intake/ Output] As Directed
Frequency: Per unit guidelines
Neurological Checks As Directed
Frequency: q4h
Precautions As Directed
Type of Precautions: Aspiration
Straight Cath As Directed
Frequency: Per Retention Algorithm
Additional Instructions: straight cath as needed per acute urinary retention algorithm for 24 hrs
Additional Instructions: for bladder scan greater than 400 mL
Vital Signs As Directed
Frequency: Per unit guidelines
Weight As Directed
Frequency: Daily
Chest PT [Rx Chest Pt] [RESP] Routine
Special Instructions: BID
Oxygen Therapy [O2 Therapy] [RESP] Routine
Titrate/Wean O2 to maintain O2 sat greater than (%): 94
Ot Eval And Treat Routine
PT Consult [Pt Eval And Treat] Routine
Activity Level: Ambulate
With Assistance
Speech Therapy Eval & Treat Routine
08/05/24 00:00
CefTRIAXone [Rocephin] 1,000 mg IV Q24H
08/05/24 Breakfast
1800 calorie (15 carb) Diabetic
At Your Request: Limited Participation
Diabetic Diet: IDDSI 5 - Minced & Moist
Basic Metabolic Panel IN AM
Complete Blood Count/No Diff IN AM
Glycohemoglobin (HgbA1c) IN AM
MR Brain Without Contrast IN AM
Comment:
Reason For Exam: Aphasia
Recent pill cam endoscopy?: No
08/05/24 07:30
Insulin Aspart Corrective Low [Novolog Flexpen-Low Resistance] See Protocol SC AC
08/05/24 08:00
Amlodipine [Norvasc] 2.5 mg PO DAILY
Apixaban [Eliquis] 2.5 mg PO BID
Carvedilol [Coreg] 3.125 mg PO BID
Docusate Sodium [Colace] 100 mg PO BID
Doxycycline [Vibramycin] 100 mg PO Q12
FLUTICASONE PROPIONATE 110 mcg [Flovent 110 Mcg Inhaler] 2 puff INH R BID
Ferrous Sulfate [Feosol] 325 mg PO BID
Guaifenesin [Mucinex] 600 mg PO Q12
Lactobac/Bifidobac [Visbiome] 1 cap PO DAILY
Paroxetine [Paxil] 30 mg PO DAILY
08/05/24 08:30
Divalproex Delayed Rel. 12 Hr [Depakote (12 Hr Release)] 250 mg PO BID@0830,1830
08/05/24 18:00
Tamsulosin [Flomax] 0.8 mg PO QPM
08/07/24 11:00
DC Protocol for Telemetry ONCE
Abnormal Lab Results
08/04/24 08/04/24
17:28 18:55
RBC 3.76 L 10^6/uL
(4.70-6.10)
Hgb 9.5 L g/dL
(13.0-18.0)
Hct 29.1 L %
(39.0-52.0)
MCV 77.4 L fL
(80.0-94.0)
MCH 25.3 L pg
(27.0-31.0)
MCHC 32.6 L g/dL
(33.0-37.0)
RDW 14.8 H %
(11.5-14.5)
Absolute Monos (auto) 1.1 H 10^3/uL
(0.1-0.6)
Lymphocytes % 19.2 L %
(20.5-51.1)
Monocytes % 11.3 H %
(1.7-9.3)
BUN 24 H mg/dl
(9-20)
Creatinine 1.4 H mg/dL
(0.7-1.3)
Glucose 158 H mg/dl
(70-99)
Albumin 3.3 L g/dl
(3.5-5.0)
Ur Occult Blood Reflex Trace A
(Negative)
Leukocyte Esterase Rfl Trace A
(Negative)
Urine WBC (Reflex) 16-20 A /HPF
(0-5)
Urine Bacteria (Reflex) Moderate A
(Negative)
08/04/24 17:28
08/04/24 17:28
Vital Signs
Initial and Last Documented VS:
Initial Vital Signs
BP
128/49
08/04/24 14:30
Last Documented Vital Signs
Temp Pulse Resp BP Pulse Ox
100.6 F H 65 25 133/50 93
08/04/24 21:13 08/04/24 21:06 08/04/24 21:06 08/04/24 21:06 08/04/24 21:06
<Hilda Bartlett, DO - Last Filed: 08/04/24 23:13>
Orders/Labs/Results
Orders:
Orders
08/04/24 14:34
Chest [CR Chest - 2 Views ] Urgent
Comment:
Reason For Exam: cough flu postitive
08/04/24 15:37
Electrocardiogram (*1) Urgent
Reason for Study: Fatigue / Weakness
CT Head W/o Iv Contrast Urgent
Comment:
Reason For Exam: AMS on eliquis
EKG- Treatment ONCE
08/04/24 17:28
COVID-19 Antigen Urgent
Source: Nasal Swab
Complete Blood Count/With Diff Urgent
Comprehensive Metabolic Panel Urgent
Lactic Acid Q4H
Comment: CANCEL 2nd LACTIC ACID IF 1st LACTIC ACID IS LESS THAN 2
NT-proBNP Urgent
Troponin I Urgent
08/04/24 17:30
Influenza A+B Rapid Molecular Urgent
ALEJA Source: Nasal Swab
Specimen Description:
08/04/24 18:36
Straight cath- Treatment ONCE
Acetaminophen [Tylenol] 650 mg PO NOW STA
08/04/24 18:55
Urinalysis Reflex To Culture Urgent
Date Specimen was Collected: 08/04/24
Time Specimen was Collected: 18:54
Urine Microscopic Reflex Cult Urgent
Urine Culture Urgent
ALEJA Source: U
Specimen Description:
Date Specimen was Collected: 08/04/24
Time Specimen was Collected: 18:54
08/04/24 19:29
Cefepime HCl [Maxipime] 2,000 mg IV NOW STA
08/04/24 20:02
Admit/Transfer Patient As Directed
Co-Sign Provider:
Level of Care: Inpatient admission
Assign to:: Telemetry
Physician / Group: Ruiz
Diagnosis: RLL Pneumonia
Reason for Telemetry: Arrhythmia
Date to Stop Telemetry: 08/07/24
Time to Stop Telemetry: 11:00
Reason for Hospitalization: RLL Pneumonia
Expected length of stay greater than two midnights?: Yes
ELOS- Estimated Length of Stay in days: 3
I certify the patient meets the requirements for IP care: Yes
PRN Pain Medication Management As Directed
May give lesser potent ordered pain med per pt: Yes
preference::
Protocol:: Medication orders for pain may be administered in a
manner that supports deferring to patient preference
when the pt is:
- Requesting an ordered lesser potent pain medication.
Least to most potent pain medications are defined
as: acetaminophen < NSAID < tramadol < opioids
(morphine, oxycodone, hydromorphone).
- Requesting a lesser dose of the same medication IF
ORDERED.
- Requesting a less intrusive route of administration
if both routes are prescribed by the provider (PO <
IV).
08/04/24 20:05
Code Status As Directed
Resuscitation Status: Do not resuscitate
Based on pt advanced directive or healthcare POA form: Yes
08/04/24 20:06
DNR Bracelet Application ONCE
08/04/24 20:20
Vancomycin [Vancocin] 2,000 mg 0.9% Sodium Chloride 500 ml [Nss] 500 ml IV NOW
08/04/24 22:00
Acetaminophen [Tylenol] 650 mg PO Q4HPRN PRN
Dextrose 50%-Water [Dextrose 50% Syringe] 12.5 grams IV [id number] PRN
Glucagon [GlucaGen] 1 mg IM PRN PRN
Ipratropium/Albuterol Sulfate [Duoneb] 3 ml INH R Q6HPRN PRN
Sennosides [Senokot] 17.2 mg PO HS
Trazodone [Desyrel] 50 mg PO HS
insulin glargine 14 unit SC HS
08/04/24 22:00
Activity As Directed
Activity Level: Ambulate
With Assistance
Bedside Glucose Monitoring As Directed
Frequency: AC&HS
Additional Instructions:: Change to q6h if pt on TPN, tube feeding or not eating
Bladder Scan As Directed
Follow Bladder Retention/Intermittent Cath Algorithm?: Yes
PRN if no void in __ hours: 6
Frequency: Per Retention Algorithm
If Bladder Scan Result >: 400
then:: Straight cath
I/O [Intake/ Output] As Directed
Frequency: Per unit guidelines
Neurological Checks As Directed
Frequency: q4h
Precautions As Directed
Type of Precautions: Aspiration
Straight Cath As Directed
Frequency: Per Retention Algorithm
Additional Instructions: straight cath as needed per acute urinary retention algorithm for 24 hrs
Additional Instructions: for bladder scan greater than 400 mL
Vital Signs As Directed
Frequency: Per unit guidelines
Weight As Directed
Frequency: Daily
Chest PT [Rx Chest Pt] [RESP] Routine
Special Instructions: BID
Oxygen Therapy [O2 Therapy] [RESP] Routine
Titrate/Wean O2 to maintain O2 sat greater than (%): 94
Ot Eval And Treat Routine
PT Consult [Pt Eval And Treat] Routine
Activity Level: Ambulate
With Assistance
Speech Therapy Eval & Treat Routine
08/05/24 00:00
CefTRIAXone [Rocephin] 1,000 mg IV Q24H
08/05/24 Breakfast
1800 calorie (15 carb) Diabetic
At Your Request: Limited Participation
Diabetic Diet: IDDSI 5 - Minced & Moist
Basic Metabolic Panel IN AM
Complete Blood Count/No Diff IN AM
Glycohemoglobin (HgbA1c) IN AM
MR Brain Without Contrast IN AM
Comment:
Reason For Exam: Aphasia
Recent pill cam endoscopy?: No
08/05/24 07:30
Insulin Aspart Corrective Low [Novolog Flexpen-Low Resistance] See Protocol SC AC
08/05/24 08:00
Amlodipine [Norvasc] 2.5 mg PO DAILY
Apixaban [Eliquis] 2.5 mg PO BID
Carvedilol [Coreg] 3.125 mg PO BID
Docusate Sodium [Colace] 100 mg PO BID
Doxycycline [Vibramycin] 100 mg PO Q12
FLUTICASONE PROPIONATE 110 mcg [Flovent 110 Mcg Inhaler] 2 puff INH R BID
Ferrous Sulfate [Feosol] 325 mg PO BID
Guaifenesin [Mucinex] 600 mg PO Q12
Lactobac/Bifidobac [Visbiome] 1 cap PO DAILY
Paroxetine [Paxil] 30 mg PO DAILY
08/05/24 08:30
Divalproex Delayed Rel. 12 Hr [Depakote (12 Hr Release)] 250 mg PO BID@0830,1830
08/05/24 18:00
Tamsulosin [Flomax] 0.8 mg PO QPM
08/07/24 11:00
DC Protocol for Telemetry ONCE
Abnormal Lab Results
08/04/24 08/04/24
17:28 18:55
RBC 3.76 L 10^6/uL
(4.70-6.10)
Hgb 9.5 L g/dL
(13.0-18.0)
Hct 29.1 L %
(39.0-52.0)
MCV 77.4 L fL
(80.0-94.0)
MCH 25.3 L pg
(27.0-31.0)
MCHC 32.6 L g/dL
(33.0-37.0)
RDW 14.8 H %
(11.5-14.5)
Absolute Monos (auto) 1.1 H 10^3/uL
(0.1-0.6)
Lymphocytes % 19.2 L %
(20.5-51.1)
Monocytes % 11.3 H %
(1.7-9.3)
BUN 24 H mg/dl
(9-20)
Creatinine 1.4 H mg/dL
(0.7-1.3)
Glucose 158 H mg/dl
(70-99)
Albumin 3.3 L g/dl
(3.5-5.0)
Ur Occult Blood Reflex Trace A
(Negative)
Leukocyte Esterase Rfl Trace A
(Negative)
Urine WBC (Reflex) 16-20 A /HPF
(0-5)
Urine Bacteria (Reflex) Moderate A
(Negative)
08/04/24 17:28
08/04/24 17:28
Vital Signs
Initial and Last Documented VS:
Initial Vital Signs
BP
128/49
08/04/24 14:30
Last Documented Vital Signs
Temp Pulse Resp BP Pulse Ox
100.6 F H 65 25 133/50 93
08/04/24 21:13 08/04/24 21:06 08/04/24 21:06 08/04/24 21:06 08/04/24 21:06
<Sanjana Harp PA-C - Last Filed: 08/04/24 21:22>
MDM/Problems Addressed
Differential Diagnosis Includes:
Not limited to: Sepsis, pneumonia, UTI, cardiac arrhythmia, acute dehydration, intraparenchymal hemorrhage, etc.
MDM/Problems Addressed:
83-year-old male on Eliquis presenting from nursing facility with acute change in mental status and recent cough. Possible history of recent influenza although unclear given patient is poor historian. Patient arrives initially afebrile with stable
vital signs. However�RN did obtain rectal temp and was found to have a temp of 100.6. Physical exam as above. Patient alert, oriented x [address] or time. No focal neurologic deficits noted. Heart regular rate and rhythm. Patient
does have frequent cough with scattered rhonchi bilaterally. Perfusing well. Ultimately�concern for ongoing infection causing mental status change. Suspect possibly pulmonary source although will check urinalysis rule out UTI. Will obtain labs,
lactic acid. Lower suspicion for acute intracranial abnormality other given patient is on Eliquis with mental status change�will obtain head CT. Anticipate admission
Labs reviewed. No acute abnormalities. No leukocytosis. Lactic acid normal. No current concern for sepsis. Urine somewhat equivocal for infection. Head CT without acute abnormalities. Chest x-ray was obtained and reviewed by me which does
show an infiltrate in the right lower lobe concerning for pneumonia. Patient will be admitted to hospitalist service for IV antibiotics and further monitoring given ongoing infection acute change in mental status. Will start IV
cefepime/vancomycin. Patient accepted to hospital service in stable condition.
Chronic conditions affecting care:
Hypertension, diabetes
Acute Exacerbation and/or Progression of Chronic Illness:
N/A
<Sanjana Harp PA-C - Last Filed: 08/04/24 21:22>
*Radiology
Radiology exam reviewed: preliminary read by ED provider (Chest x-ray reviewed by me-right lower lobe pneumonia)
*Pulse Oximetry
Patient hypoxic: no
*EKG
Interpreted by ED Provider?: Yes
EKG Intrepretation Date: 08/04/24
Interpretation: abnormal
Comparison EKG: no changes
Heart Rate: 68
Rate: normal
Rhythm: sinus
Mobile: normal axis
Interval: normal QT interval
Ischemia: no ischemia
*Sap Basis Interpretation
Rate: normal
Interpretation: normal
Heart Rate: 64
Rhythm: sinus
*Critical Care Note
Total Time (30-74mins, 75-104mins- exclusive of procedures): Not Applicable
<Sanjana Harp PA-C - Last Filed: 08/04/24 21:22>
Patient Management
Discussion with other providers: Hospitalist
Escalation/DeEscalation of care consider admission/obs:
Admit for pneumonia, IV antibiotics, acute mental status change
ED Attending Note
<Sanjana Harp PA-C - Last Filed: 08/04/24 21:22>
-
Portions of this chart may have been created with voice recognition software.� Occasional wrong word or��sound alike� substitutions may have occurred due to the inherent limitations of voice recognition software.
<Hilda Bartlett DO - Last Filed: 08/04/24 23:13>
ED Attending Note
Patient seen and examined by attending physician: Yes
I performed the substantive portion of visit, reviewed & personally made and approve the management plan that is documented in note by myself or HAZEL.: Yes
I performed a history and physical exam of patient and discussed management with resident, I reviewed resident's note and agree with documented findings and plan of care.: Yes
ED Attending Note:
83-year-old male with history of A-fib on Eliquis, CHF, prior history of CVA, diabetes, dementia presenting for acute confusion from nursing facility. Patient arrives with daughters who reports for the past few days patient has seemed off
increasingly confused. At his facility, I been several cases of influenza. Patient has been coughing, has had difficulty expectorating with history of CVA in the past and history of dysphagia. No report of any recent falls. Family reports
low-grade fever yesterday. Patient himself denies chest pain or difficulty breathing. He denies abdominal pain. Patient is a limited historian, does appear confused.
Vital signs on arrival are normal. On exam patient is resting comfortably, no acute distress. No respiratory distress. No focal abnormal lung sounds. Abdomen is soft and nondistended, nontender. Patient does have some nonsensical speech, which
daughters report is abnormal for him. Concern for acute change in mental status. In the setting of cough and influenza at facility, suspected viral syndrome versus possible pneumonia. Patient with CVA in the past, will screen with CT brain.
Patient out of the window for any tPA or advanced therapy given that symptoms have been ongoing for the past few days. Urinary tract infection is also consideration. Plan for laboratory analysis, urinalysis, chest x-ray, viral swabs, CT brain
18:00 - CT without acute intracranial abnormality. No leukocytosis, no lactic acid elevation. Without present concern for sepsis.
19:30 -viral swabs negative, however chest x-ray concerning for right lower lobe pneumonia. Patient with low-grade fever, consistent with underlying infection, fever, cough, suspected pneumonia. Plan for antibiotics and admission for change in
mental status with acute infection
Discharge Plan
Departure
Patient Disposition: Admit
Date of Disposition: 08/04/24
Time of Disposition: 19:32
Presentation/result/management discussed w/ accepting MD/DO: Hospitalist
Discharge Problem:
Right lower lobe pneumonia, Altered mental status
Interventions
Interventions:
*Risk Screen - Suicide Last Done: 08/04/24 14:31
*General Assessment Last Done: 08/04/24 14:31
*Neglect/Abuse Screening Last Done: 08/04/24 14:31
ED- Fall Risk Assessment Last Done: 08/04/24 22:07
*ED COVID-19 Vaccine History Last Done: 08/04/24 14:31
*Nursing Disposition Last Done: 08/04/24 22:07
ED- Neurological Assessment Last Done: 08/04/24 17:21
ED- Cardiac Assessment Last Done: 08/04/24 14:45
ED Swallowing Screen Last Done: 08/04/24 18:42
Discharge Date and Time
Discharge Date/Time: 08/04/24 22:08
[2024-08-04 17:48] LABS: % Basophils 0.3 % (0-2); % Eosinophils 0.2 % (0-6); % Immature Granulocytes 0.4 % (0-0.5); % Lymphocytes 19.2 % (20.5-51.1); % Monocytes 11.3 % (1.7-9.3); % Neutrophils 68.6 % (42.2-75.2); Absolute Lymphocytes 1.8 10^3/uL (1.2-3.4); Absolute Monocytes 1.1 10^3/uL (0.1-0.6); Absolute Neutrophils 6.5 10^3/uL (1.4-6.5); Hematocrit 29.1 % (39.0-52.0); Hemoglobin 9.5 g/dL (13.0-18.0); Mean Corp Hgb Conc. 32.6 g/dL (33.0-37.0); Mean Corpuscular Hgb 25.3 pg (27.0-31.0); Mean Corpuscular Volume 77.4 fL (80.0-94.0); Nucleated Red Blood Cells % 0 % (-); Platelet Count 219 10^3/uL (130-400); Red Blood Cell Count 3.76 10^6/uL (4.70-6.10); Red Cell Dist. Width 14.8 % (11.5-14.5); White Blood Cell Count 9.4 10^3/uL (4.8-10.8)
[2024-08-04 17:53] LABS: Lactic Acid 1.1 mmol/L (0.7-2.0)
[2024-08-04 17:58] LABS: ALT (SGPT) 11 U/L (0-50); AST (SGOT) 17 U/L (17-59); Albumin 3.3 g/dl (3.5-5.0); Alkaline Phosphatase 55 U/L (38-126); Blood Urea Nitrogen 24 mg/dl (9-20); Calcium 8.4 mg/dl (8.4-10.2); Carbon Dioxide 28 mmol/L (22-30); Chloride 98 mmol/L (98-107); Estimated Creatinine Clearance 43 ml/min; Glucose 158 mg/dl (70-99); Potassium 3.7 mmol/L (3.5-5.1); Sodium 135 mmol/L (135-145); Total Bilirubin 0.4 mg/dl (0.2-1.3); Total Protein 6.6 g/dl (6.3-8.2); eGFR 49.56
[2024-08-04 18:05] LABS: NT-proBNP 1500 pg/ml; Troponin I 0.014 ng/ml
[2024-08-04 18:17] LABS: COVID-19 Antigen Negative (Negative)
[2024-08-04] MEDS: TYLENOL 650 MG PO (18:43)
[2024-08-04 19:18] LABS: Urine Albumin Trace (Neg - Trace); Urine Bilirubin Negative (Negative); Urine Character Clear (Clear); Urine Color Yellow; Urine Glucose Negative (Negative); Urine Ketone Negative (Negative); Urine Leukocyte Trace (Negative); Urine Nitrite Negative (Negative); Urine Occult Blood Trace (Negative); Urine Specific Gravity 1.015 (<1.030); Urine Urobilinogen Negative (Neg - 1+)
[2024-08-04 19:25] LABS: Urine Bacteria Moderate (Negative); Urine Red Blood Cell 0-2 /HPF (0-2); Urine Squamous Cell 0-2 /LPF (Few); Urine White Cell 16-20 /HPF (0-5)
--- NOTE | 2024-08-04 20:09 | HPS.HSE ---
Family Physician
-
Family Physician: NOT KNOW UNKNOWN - PT DOES
Chief Complaint
-
Confusion
History of Present Illness
Patient is an 83y M with PMH significant for dementia, ASCVD, hypertension and DM-II who presents to ED for evaluation of confusion / altered mental status. Patient was noted to be more confused than usual today at [facility]. In the ED, patient is
awake and alert but seems to have difficulty with spoken communication with some nonsensical speech. He admits to recent cough. Denies any pain.
Patient was admitted in 05/2024 with LLL pneumonia at that time.
CXR today shows infiltrate in the R medial base.
Medical History
Past Medical History
Past Medical History: Reports Other
Additional Past Medical History:
Coronary Artery Disease s/p CABG
Chronic HFpEF
Paroxysmal Atrial Fibrillation
Essential Hypertension
Diabetes Mellitus, Type II
CKD Stage III
Asthma
Dementia with behavioral disturbance
PUD/GI Bleed
BPH
Overactive Bladder
DVT/PE s/p IVC Filter
Past Surgical History: Reports Other
Additional Past Surgical History:
CABG 2009
Bladder Stone Removal
Social History
Tobacco: Former Smoker
Living: Skilled Nursing
Family History
Family History: Unable to Obtain
Allergies / Home Medications
Allergies reflects when Allergies were last updated in [employer].
Home Medications with original date entered in [employer]
Allergy/Medication List:
Allergies
Allergy/AdvReac Type Severity Reaction Status Date / Time
ofloxacin [From Floxin] Allergy Rash Verified 08/04/24 14:30
oseltamivir [From Tamiflu] Allergy Anaphylaxis Verified 08/04/24 14:30
Home Medications
acetaminophen 325 mg tablet (Tylenol) 650 mg PO Q4HPRN PRN mild pain/fever>100.4 03/10/22
bisacodyl 10 mg rectal suppository (Dulcolax (bisacodyl)) 10 mg [place] [id number] PRN if mom ineffective 03/10/22
carvedilol 3.125 mg tablet (Coreg) 3.125 mg PO BID Blood Pressure 03/10/22
dulaglutide 1.5 mg/0.5 mL subcutaneous pen injector (Trulicity) 1.5 mg SC FR Diabetes 03/10/22
fluticasone furoate 200 mcg/actuation blister powder for inhalation (Arnuity Ellipta) 1 inh inhalation R DAILY Lung/Breathing Issues 03/10/22
furosemide 20 mg tablet (Lasix) 20 mg PO DAILY Fluid Retention/Swelling 03/10/22
magnesium hydroxide 400 mg/5 mL oral suspension (Milk of Magnesia) 30 ml PO HSPRN PRN constipation 03/10/22
metformin 500 mg tablet 250 mg PO BID@0830,1830 Diabetes 03/10/22
sucralfate 1 gram tablet (Carafate) 1 g PO BID Gastrointestinal Issue 03/10/22
tamsulosin 0.4 mg capsule (Flomax) 0.8 mg PO QPM Urinary Issue 03/10/22
amlodipine 2.5 mg tablet 2.5 mg PO DAILY Blood Pressure 08/21/23
divalproex 250 mg tablet,delayed release 250 mg PO BID@0830,1830 Seizures 08/21/23
melatonin 3 mg tablet 3 mg PO HS Sleep 08/21/23
pantoprazole 20 mg tablet,delayed release 20 mg PO HS Gastrointestinal Issue 08/21/23
paroxetine HCl 30 mg tablet 30 mg PO DAILY Mental Health/Anxiety 08/21/23
trazodone 50 mg tablet 50 mg PO HS mental health/sleep 08/21/23
cholecalciferol (vitamin D3) 1,250 mcg (50,000 unit) tablet 1,250 mcg PO QMONTH Supplement 08/23/23
dextromethorphan-guaifenesin 10 mg-100 mg/5 mL oral liquid (Diabetic Tussin DM) 10 ml PO Q4HPRN PRN cough 05/17/24
ipratropium 0.5 mg-albuterol 3 mg (2.5 mg base)/3 mL nebulization soln 3 ml inhalation R Q6HPRN PRN wheezing 05/17/24
apixaban 2.5 mg tablet 2.5 mg PO BID Blood Clot Prevention/Tx #0 tabs 05/19/24
Lactobac no.2-Bifidobac no.1-S. thermo 112.5 billion cell capsule (Visbiome) 1 cap PO DAILY 08/04/24
insulin glargine 100 unit/mL subcutaneous solution 14 unit SC HS 08/04/24
oxybutynin chloride 5 mg tablet,extended release 24 hr 5 mg PO DAILY 08/04/24
Review of Systems
-
History Source: Patient (Limited ROS due to baseline dementia, acute confusion, speech difficulty.)
Constitutional: Reports Fever
Respiratory: Reports Cough; Denies Trouble Breathing
Cardiac: Denies Chest Pain
Abdomen/GI: Denies Nausea or Vomiting
Physical Exam
Vital Signs
Vital Signs
Temp Pulse Resp BP Pulse Ox
100.9 F H 68 25 131/52 95
08/04/24 18:31 08/04/24 19:00 08/04/24 19:00 08/04/24 19:00 08/04/24 17:30
Physical Exam
General: Other (83y M in no acute distress. Tactile fever.)
HEENT: PERRLA and Other (Dry MM. Neck supple.)
Respiratory: Other (Coarse breath sounds over the R base - otherwise clear.)
Cardiac: S1/S2, Regular Rhythm and Murmur (II/ KAUSHAL)
GI: Soft, Non Tender, Non Distended and Normal Bowel Sounds
Musculoskeletal: No Clubbing, No Cyanosis and No Edema
Neuro: Awake and Alert; No Oriented
Laboratory Results
-
08/04/24 17:28
08/04/24 17:28
Laboratory Results
Lactic Acid Cancelled 08/04/24 19:45
Total Bilirubin 0.4 mg/dl (0.2-1.3) 08/04/24 17:28
AST 17 U/L (17-59) 08/04/24 17:28
ALT 11 U/L (0-50) 08/04/24 17:28
Alkaline Phosphatase 55 U/L (38-126) 08/04/24 17:28
Troponin I 0.014 ng/ml 08/04/24 17:28
Impression/Plan
-
A/P: Patient is an 83y M with PMH significant for ASCVD, HTN, DM-II and dementia who presents to ED from local [place] for evaluation of confusion.
RLL Pneumonia
- Admit for further evaluation and treatment.
- Abx coverage with ceftriaxone and doxycycline.
- Supportive care including nebs, mucolytics, chest PT, etc.
- Follow for clinical improvement.
- Multiple prior episodes of pneumonia with questionable aspiration.
- Speech recommended IDDS 5 during prior admission. Will initiate.
- Speech re-evaluation.
- Follow for clinical improvement.
Aphasia
- Patient with periods of nonsensical speech.
- ? effect of underlying dementia and acute illness.
- ? acute CVA (less likely but multiple risk factors).
- CT scan with chronic findings c/w Parkinson's.
- MRI in AM to rule out new CVA.
RICK on CKD III
- SCr = 1.4 compared to prior baseline of 1.0.
- Likely prerenal due to infection.
- Holding diuretics acutely.
- Follow for improvement in renal function.
ASCVD
Chronic HFpEF
- Stable. No complaints of chest pain. No edema on exam.
- Hold Lasix acutely.
- Follow I/Os, daily weights, etc.
- Continue other CV medications.
Paroxysmal Atrial Fibrillation
- Stable. Continue rate control medications and Eliquis for stroke risk reduction.
- Monitor on telemetry.
Iron Deficiency Anemia
- Stable. Hgb at near / known baseline.
- Prior iron studies with very low iron - TSat could not be calculated.
- Begin iron supplementation and follow-up as an outpatient.
Benign Hypertension
- Stable. Continue current meds with holding parameters.
DM-II
- Stable. Continue basal : bolus insulin regimen.
- Follow glucose and cover with SSI as needed.
- Update A1C.
Asthma
- No active wheezing on exam.
- Continue inhaled medications - especially given current pneumonia.
Senile Dementia with Behavioral Disturbance
- Stable at present without agitation / anxiety.
- Continue current med regimen including Depakote.
- Follow for any acute agitation / decompensation during hospital stay.
Protein S Deficiency
History of DVT / PE
s/p IVC Filter
DVT Prophylaxis
- Continue renally-dosed Eliquis
Code Status: DNR per Advanced Directive / NH Record.
[2024-08-04] MEDS: VANCOCIN 540 MG IV (21:01)
[2024-08-04] MEDS: MAXIPIME 2000 MG IV (21:01)
--- NOTE | 2024-08-04 22:00 | TRANSFER ---
pt arrived from ED via stretcher accompanied by ER staff. pt was a pullover from stretcher to bed. pt is AAOx1- only oriented to self. bed alarm placed on bed. upon arrival, NIHSS of 4. VSS, call campbell within reach, plan of care ongoing.
[2024-08-04 22:43] LABS: Glucose - Point of Care 108 mg/dl (70-99)
[2024-08-04] MEDS: DESYREL PO (22:57)
[2024-08-04] MEDS: LANTUS SC (22:57)
[2024-08-04] MEDS: SENOKOT 17.2 MG PO (22:57)
--- NOTE | 2024-08-04 23:15 | PTCARENOTE ---
pt very drowsy, lethargic, and confused upon assessment. KIER HAND made aware- ordered to hold 50mg trazadone tonight. pt blood sugar 108 upon arrival to floor- KIER HAND made aware, ordered to hold 14 units of Lantus. will continue to monitor.
[2024-08-04] MEDS: STERILE WATER FOR INJECTION 10 ML IV (23:28)
[2024-08-04] MEDS: ROCEPHIN 1000 MG IV (23:28)
[2024-08-05] VITALS (11 sets, daily range): BP systolic 128–156; BP diastolic 49–64; PULSE 64; O2SAT 94–95; BMI 22.6
[2024-08-05 06:02] LABS: Hematocrit 30.6 % (39.0-52.0); Hemoglobin 9.9 g/dL (13.0-18.0); Mean Corp Hgb Conc. 32.4 g/dL (33.0-37.0); Mean Corpuscular Hgb 24.7 pg (27.0-31.0); Mean Corpuscular Volume 76.3 fL (80.0-94.0); Mean Platelet Volume 8.7 fL (7.4-10.4); Platelet Count 230 10^3/uL (130-400); Red Blood Cell Count 4.01 10^6/uL (4.70-6.10); Red Cell Dist. Width 14.6 % (11.5-14.5); White Blood Cell Count 8.8 10^3/uL (4.8-10.8)
[2024-08-05 06:47] LABS: Blood Urea Nitrogen 24 mg/dl (9-20); Calcium 8.5 mg/dl (8.4-10.2); Carbon Dioxide 26 mmol/L (22-30); Chloride 100 mmol/L (98-107); Estimated Creatinine Clearance 49 ml/min; Glucose 124 mg/dl (70-99); Potassium 3.7 mmol/L (3.5-5.1); Sodium 137 mmol/L (135-145); eGFR 59.63
[2024-08-05] MEDS: FLOVENT 110 MCG INHALER 2 PUFF INH ×2 (07:11→20:05)
[2024-08-05 07:26] LABS: Glucose - Point of Care 128 mg/dl (70-99)
[2024-08-05] MEDS: VIBRAMYCIN 100 MG PO (08:22)
[2024-08-05] MEDS: COREG 3.125 MG PO (08:22)
[2024-08-05] MEDS: MUCINEX 600 MG PO (08:22)
[2024-08-05] MEDS: DEPAKOTE (12 HR RELEASE) 250 MG PO (08:22)
[2024-08-05] MEDS: NORVASC 2.5 MG PO (08:23)
[2024-08-05] MEDS: PAXIL 30 MG PO (08:23)
[2024-08-05] MEDS: COLACE 100 MG PO (08:23)
[2024-08-05] MEDS: FEOSOL 325 MG PO (08:23)
[2024-08-05] MEDS: ELIQUIS 2.5 MG PO (08:23)
[2024-08-05] MEDS: DESENEX/MITRAZOL/ZEASORB 1 APPLIC TOPICAL ×2 (08:23→21:04)
[2024-08-05] MEDS: VISBIOME 1 CAP PO (08:23)
--- NOTE | 2024-08-05 08:27 | W.PN.HOSP.TC ---
Addendum entered and electronically signed by Arin Yañez MD 08/05/24 18:47:
I saw and evaluated the patient. I reviewed the resident�s note and agree with findings and plan as documented in the resident�s note.
A/P:
# Sepsis POA secondary to RLL pneumonia; CAP vs aspiration pneumonia
CXR showed Moderate opacity in the RLL, new from 05/17/2024.
Flu/COVID negative. MRSA screen pending.
S/p x1 dose cefepime/Vanco. Cont Ceftriaxone and Doxy. Added IV Flagyl for anaerobic coverage w/ possible aspiration pneumonia.
SPL recc NPO for now, daily SPL eval
# Possible complicated UTI
Follow urine cultures
Cont ceftriaxone as above
# Dysphagia
SPL recc NPO for now, daily SPL eval
# Altered Mental Status/likely acute metabolic encephalopathy due to sepsis
CT showing no acute intracranial hemorrhage, and Fahr Syndrome (idiopathic basal ganglia calcification).
Brain MRI ordered.
# RICK, Likely pre-renal secondary to infection, resolved
Cr 1.4 on admission -> 1.2.
# HFrF
last echo 07/18/24, EF of 55%, mild-mod aortic stenosis, mild MR, AR, TR.
C/w Carvedilol
# ASCVD
# Seizure
Replace ENVELOPE STUFFER PO Depakote with IV
# Dementia? - will have to contact family for baseline.
# Paroxysmal Atrial Fibrillation
c/w Eliquis as tolerated, if patient unable to take PO meds will switch to SC lovenox.
# Type II Diabetes Mellitus - LDISS
# Essential Hypertension
ENVELOPE STUFFER Norvasc and Coreg
IV hydralazine prn if unable to tolerate PO meds.
# Iron Deficiency Anemia - monitor. Transfuse if <7
# Asthma
prn duonebs
Diet - NPO
DVT PPX - ENVELOPE STUFFER Eliquis
Code Status - DNR
Original Note:
Today's Communication/Plan
-
C/w IV abx. Monitor ms. Pending MRI.
Assessment / Plan
Assessment / Plan
83 year old man
#Sepsis secondary to RLL pneumonia - Met SIRS criteria for sepsis (febrile, tachypneic, tachycardic, source of infection). CXR showing Moderate opacity in the RLL, new from 05/17/2024. Flu/COVID negative. MRSA screen pending. S/p x1 dose
cefepime/Vanco.
- Now on Ceftriaxone and Doxy. Added IV Flagyl for anaerobic coverage w/ possible aspiration pneumonia.
#UTI, complicated - UA showing bacteria, LE, moderate bacteria. Urine culture pending. Will adjust abx as necessary.
#Dysphagia - Seen by speech, recommending NPO. Speech therapist following. Will try to encourage PO meds as tolerated/crushing when necessary.
#Altered Mental Status - CT showing no acute intracranial hemorrhage, and Fahr Syndrome (idiopathic basal ganglia calcification). Brain MRI ordered.
#Aphasia, aute on chronic?- Nonsensical speech still present. MRI brain pending. Unsure if this is baseline or not.
#RICK on CKD - telecommunications repairer elevated to 1.4 on admission. Likely pre-renal secondary to infection. Resolving; today 1.2.
#HFrF - last echo 07/18/24, EF of 55%, mild-mod aortic stenosis, mild MR, AR, TR. C/w Carvedilol, amlodipine.
#ASCVD
#Seizure - Hold home PO depakote. will give IV Valproic acid.
#Dementia? - will have to contact family for baseline.
#Paroxysmal Atrial Fibrillation - c/w Eliquis as tolerated, if patient unable to take PO meds will switch to SC lovenox.
#Type II Diabetes Mellitus - LDISS
#Essential Hypertension - meds as above. IV hydralazine prn if unable to tolerate PO meds.
#Iron Deficiency Anemia - monitor. Transfuse if <7
#Asthma - prn duonebs
Diet - NPO
DVt PPX -
Code Status - DNR
Anticipated Discharge: > 48 hours
Subjective/Interval History
-
Patient is awake but not oriented. He was febrile overnight, but this morning has no complaints. Though he says he is fine, he is coughing during exam.
Objective Data
-
Labs:
Laboratory Results
08/05/24
05:37
WBC 8.8
Hgb 9.9 L
Hct 30.6 L
Plt Count 230
Sodium 137
Potassium 3.7
Chloride 100
Carbon Dioxide 26
BUN 24 H
Creatinine 1.2
Glucose 124 H
Calcium 8.5
Vital Signs:
Vital Signs
Temp Pulse Resp BP Pulse Ox
99.7 F 110 16 144/62 92
08/05/24 03:28 08/05/24 07:16 08/05/24 07:16 08/05/24 03:28 08/05/24 07:16
I&O
08/04/24 08/05/24 08/06/24
06:59 06:59 06:59
Intake Total 120 / 120
Output Total 200 / 200
Balance -80 / -80
Review of Systems
-
Unable to obtain full review of systems at this time due to: Dementia
History Source: Patient
All other systems: Reviewed and negative
Constitutional: Reports No Symptoms
EENT: Reports No Symptoms Reported
Respiratory: Reports No Symptoms
Cardiac: Reports No Symptoms
Abdomen/GI: Reports No Symptoms
Genitourinary: Reports No Symptoms
Musculoskeletal: Reports No Symptoms
Neuro: Reports No Symptoms
Physical Exam
-
General: Well Developed, Well Nourished, No Apparent Distress and Comfortable
HEENT: Normocephalic, Atraumatic, Moist Mucous Membranes, Anicteric, [place] Conjunctivae, PERRLA, Nose Appears Normal and Ears Appear Normal
Respiratory: Rales and Non Labored Respirations; Negative Wheezes or Rhonchi
Cardiac: Regular Rhythm, S1/S2 and Murmur (systolic murmur)
Breast: N/A
GI: Soft, Nontender and Nondistended
Genito-urinary: Deferred by me
Musculoskeletal: No Clubbing, No Cyanosis and No Edema
Neuro: Awake, Alert and Other (Patient knew his name, but thought he was in a '[employer]'. ); Negative Oriented
[2024-08-05 09:45] LABS: Glycohemoglobin (HgbA1c) 6.4 % (4.0-5.6)
[2024-08-05 11:34] LABS: Glucose - Point of Care 125 mg/dl (70-99)
--- NOTE | 2024-08-05 11:48 | PTOTSP ---
SPEECH THERAPY SWALLOW EVALUATION:
Patient exhibits clinical signs of severe oropharyngeal dysphagia, likely chronic related to dementia and acutely exacerbated by AMS, pneumonia. Patient with 3 prior VSEs, most recently 08/25/2023. During evaluation, patient with absent swallow
initiation with thin liquids. Patient is at HIGH RISK for aspiration and related complications given chronic dysphagia and acutely exacerbating factors including lethargy. Therefore patient is clearly unsafe for oral diet at this time. Recommend
temporary NPO; ST to follow and re-assess in 24 hours. Recommend oral care 3x/day. Consider repeat instrumental assessment of swallowing when/if appropriate.
RECOMMEND:
1) temporary NPO
2) ST to follow and re-assess in 24 hours
3) Recommend oral care 3x/day
4) Consider repeat instrumental assessment of swallowing when/if appropriate
[2024-08-05] MEDS: DEPACON 52 MG IV (14:06)
[2024-08-05] MEDS: NSS 1000 IV (14:07)
[2024-08-05] MEDS: FLAGYL 500 MG 100 IV ×2 (15:35→21:04)
--- NOTE | 2024-08-05 16:24 | CM ---
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 He is assisted in all activities of daily living.Spoke with dgbryanna Bruno she would like him to return to [facility] when medically ready.He uses walker and wheelchair and oxygen as needed
.
[facility]
PCP DR Metcalf
PLAN return to [facility]
[2024-08-05] MEDS: FLOMAX PO (17:06)
[2024-08-05 17:34] LABS: Glucose - Point of Care 99 mg/dl (70-99)
[2024-08-05] MEDS: VIBRAMYCIN 260 MG IV (17:38)
[2024-08-05] MEDS: DUONEB 3 ML INH (20:09)
[2024-08-05] MEDS: COREG PO (21:03)
[2024-08-05] MEDS: COLACE PO (21:03)
[2024-08-05] MEDS: LANTUS SC (21:04)
[2024-08-05] MEDS: DESYREL PO (21:04)
[2024-08-05] MEDS: ELIQUIS PO (21:04)
[2024-08-05] MEDS: SENOKOT PO (21:04)
[2024-08-05] MEDS: MUCINEX PO (21:04)
[2024-08-05] MEDS: APRESOLINE 10 MG IV (21:05)
[2024-08-06] VITALS (7 sets, daily range): BP systolic 125–155; BP diastolic 49–60; BMI 21.6
[2024-08-06 00:10] LABS: Glucose - Point of Care 105 mg/dl (70-99)
[2024-08-06] MEDS: ROCEPHIN 1000 MG IV (01:35)
[2024-08-06] MEDS: STERILE WATER FOR INJECTION 10 ML IV (01:35)
[2024-08-06] MEDS: DEPACON 52 MG IV ×3 (01:36→23:36)
[2024-08-06] MEDS: NSS 1000 IV ×2 (05:35→19:51)
[2024-08-06] MEDS: FLAGYL 500 MG 100 IV ×3 (05:35→20:49)
[2024-08-06] MEDS: VIBRAMYCIN 260 MG IV ×2 (05:35→17:00)
[2024-08-06 06:01] LABS: Glucose - Point of Care 112 mg/dl (70-99)
[2024-08-06 07:20] LABS: Hematocrit 26.9 % (39.0-52.0); Hemoglobin 8.8 g/dL (13.0-18.0); Mean Corp Hgb Conc. 32.7 g/dL (33.0-37.0); Mean Corpuscular Hgb 25.3 pg (27.0-31.0); Mean Corpuscular Volume 77.3 fL (80.0-94.0); Platelet Count 261 10^3/uL (130-400); Red Blood Cell Count 3.48 10^6/uL (4.70-6.10); Red Cell Dist. Width 14.8 % (11.5-14.5); White Blood Cell Count 8.9 10^3/uL (4.8-10.8)
[2024-08-06] MEDS: NORVASC PO (07:47)
[2024-08-06] MEDS: MUCINEX PO (07:47)
[2024-08-06] MEDS: PAXIL PO (07:47)
[2024-08-06] MEDS: COLACE PO ×2 (07:47→19:45)
[2024-08-06] MEDS: ELIQUIS PO (07:47)
[2024-08-06] MEDS: COREG PO ×2 (07:47→19:20)
[2024-08-06] MEDS: DESENEX/MITRAZOL/ZEASORB 1 APPLIC TOPICAL ×2 (07:48→19:45)
[2024-08-06 08:01] LABS: Blood Urea Nitrogen 20 mg/dl (9-20); Calcium 7.9 mg/dl (8.4-10.2); Carbon Dioxide 26 mmol/L (22-30); Chloride 103 mmol/L (98-107); Estimated Creatinine Clearance 51 ml/min; Glucose 93 mg/dl (70-99); Potassium 3.4 mmol/L (3.5-5.1); Sodium 139 mmol/L (135-145); eGFR > 60.00
[2024-08-06] MEDS: FLOVENT 110 MCG INHALER 2 PUFF INH ×2 (08:44→17:55)
--- NOTE | 2024-08-06 10:47 | W.PN.HOSP.TC ---
Today's Communication/Plan
-
see A/P
Assessment / Plan
Assessment / Plan
A/P:
# Sepsis POA secondary to RLL pneumonia; CAP vs aspiration pneumonia
CXR showed Moderate opacity in the RLL, new from 05/17/2024.
Flu/COVID negative. MRSA screen negative.
S/p x1 dose cefepime/Vanco. Cont Ceftriaxone and Doxy. Added IV Flagyl for anaerobic coverage w/ possible aspiration pneumonia.
SPL recc NPO for now, daily SPL eval
# Altered Mental Status/likely acute metabolic encephalopathy due to sepsis
Confusion has much resolved
Pt is AOx2-3
CT head and MRI brain negative for acute intracranial abnormality.
# UTI ruled out
Urine culture no growth
# Dysphagia likely 2/2 acute metabolic encephalopathy
daily SPL eval
anticipate can start diet today with MS improvement
# RICK, Likely pre-renal secondary to infection, resolved
Cr 1.4 on admission -> 1.1.
# HFrF
last echo 07/18/24, EF of 55%, mild-mod aortic stenosis, mild MR, AR, TR.
C/w Carvedilol
# ASCVD
# Seizure
Replace BANDER OPERATOR PO Depakote with IV with NPO status
# Paroxysmal Atrial Fibrillation
c/w Eliquis as tolerated, if patient unable to take PO meds will switch to SC lovenox.
# Type II Diabetes Mellitus - LDISS
# Essential Hypertension
BANDER OPERATOR Norvasc and Coreg
IV hydralazine prn if unable to tolerate PO meds.
# Iron Deficiency Anemia - monitor. Transfuse if <7
# Asthma
prn duonebs
# Hypokalemia
replete IV
Diet - NPO
DVT PPX - BANDER OPERATOR Eliquis
Code Status - DNR
DW daughter Kiana on the phone. She states that pt does NOT have diagnosis of dementia
Anticipated Discharge: 24 - 48 hours
Subjective/Interval History
-
Date of Service: August 06, 2024
Objective Data
-
Labs:
Laboratory Results
08/06/24
06:24
WBC 8.9
Hgb 8.8 L
Hct 26.9 L
Plt Count 261
Sodium 139
Potassium 3.4 L
Chloride 103
Carbon Dioxide 26
BUN 20
Creatinine 1.1
Glucose 93
Calcium 7.9 L
Vital Signs:
Vital Signs
Temp Pulse Resp BP Pulse Ox
37.2 C 54 16 128/50 94
08/06/24 07:15 08/06/24 08:48 08/06/24 08:48 08/06/24 07:15 08/06/24 08:48
I&O
08/05/24 08/06/24 08/07/24
06:59 06:59 06:59
Intake Total 120 / 120
Output Total 200 / 200 600 / 600
Balance -80 / -80 -600 / -600
[2024-08-06 11:26] LABS: Glucose - Point of Care 115 mg/dl (70-99)
--- NOTE | 2024-08-06 12:21 | PTOTSP ---
Speech Pathology
Dysphagia Follow Up
Brain MRI with no acute abnormalities. Improving mentation.
Impression:
Mild oropharyngeal dysphagia characterized by prolonged mastication and intermittent throat clearing with regular solids. Aspiration risk is increased in the presence of RLL PNA (?aspiration related) and AMS.
Recommend:
1. Trial diet upgrade of soft and bite sized solids (IDDSI 6), thin liquids
2. Meds as best tolerated
3. Aspiration precautions: small bites, single sips, slow rate, chew well, partial supervision
4. ELECTRICIAN SUBSTATION SUPERVISOR service to follow up re: to assess diet level and provide dysphagia tx PRN; determine if there is a need for repeat instrumental study pending diet tolerance
[2024-08-06] MEDS: ELIQUIS 2.5 MG PO ×2 (12:48→22:45)
[2024-08-06] MEDS: KCL 270 MEQ IV (13:08)
[2024-08-06 16:49] LABS: Glucose - Point of Care 202 mg/dl (70-99)
[2024-08-06] MEDS: NOVOLOG FLEXPEN-LOW RESISTANCE 2 UNITS SC (16:56)
[2024-08-06] MEDS: FLOMAX 0.8 MG PO (17:00)
[2024-08-06] MEDS: SENOKOT PO (19:45)
[2024-08-06] MEDS: MUCINEX 600 MG PO (19:49)
[2024-08-06] MEDS: APRESOLINE 10 MG IV (20:16)
[2024-08-06] MEDS: FLAGYL 500 MG IV (20:23)
[2024-08-06 21:11] LABS: Glucose - Point of Care 145 mg/dl (70-99)
[2024-08-06] MEDS: DESYREL 50 MG PO (21:19)
[2024-08-06] MEDS: LANTUS 0.14 UNITS SC (21:19)
[2024-08-07] MEDS: STERILE WATER FOR INJECTION 10 ML IV (01:08)
[2024-08-07] MEDS: ROCEPHIN 1000 MG IV (01:08)
[2024-08-07] MEDS: DUONEB 3 ML INH (01:32)
[2024-08-07 03:48] VITALS: BP 125/48
[2024-08-07] MEDS: FLAGYL 500 MG 100 IV ×3 (03:54→19:51)
[2024-08-07] MEDS: VIBRAMYCIN 260 MG IV ×2 (05:45→17:14)
[2024-08-07 06:00] VITALS: BMI 23.0
[2024-08-07 07:13] VITALS: BP 138/51
[2024-08-07] MEDS: COLACE PO ×2 (07:54→19:49)
[2024-08-07] MEDS: NORVASC 2.5 MG PO (07:58)
[2024-08-07] MEDS: COREG PO (07:58)
[2024-08-07] MEDS: MUCINEX 600 MG PO (07:58)
[2024-08-07] MEDS: PAXIL 30 MG PO (07:58)
[2024-08-07] MEDS: ELIQUIS 2.5 MG PO ×2 (07:59→20:50)
[2024-08-07] MEDS: DESENEX/MITRAZOL/ZEASORB 1 APPLIC TOPICAL ×2 (07:59→19:52)
[2024-08-07 08:06] LABS: Glucose - Point of Care 126 mg/dl (70-99)
[2024-08-07] MEDS: NOVOLOG FLEXPEN-LOW RESISTANCE SC ×2 (08:09→17:11)
[2024-08-07 08:13] VITALS: BP 138/51
[2024-08-07 08:21] LABS: Hematocrit 26.9 % (39.0-52.0); Hemoglobin 8.7 g/dL (13.0-18.0); Mean Corp Hgb Conc. 32.3 g/dL (33.0-37.0); Mean Corpuscular Volume 77.3 fL (80.0-94.0); Mean Platelet Volume 9.2 fL (7.4-10.4); Platelet Count 297 10^3/uL (130-400); Red Blood Cell Count 3.48 10^6/uL (4.70-6.10); White Blood Cell Count 9.1 10^3/uL (4.8-10.8)
[2024-08-07] MEDS: FLOVENT 110 MCG INHALER 2 PUFF INH ×2 (08:40→17:32)
[2024-08-07 08:48] LABS: Blood Urea Nitrogen 17 mg/dl (9-20); Carbon Dioxide 23 mmol/L (22-30); Chloride 107 mmol/L (98-107); Estimated Creatinine Clearance 66 ml/min; Glucose 110 mg/dl (70-99); Magnesium 1.9 mg/dl (1.6-2.3); Potassium 3.6 mmol/L (3.5-5.1); Sodium 140 mmol/L (135-145); eGFR > 60.00
--- NOTE | 2024-08-07 10:22 | W.PN.HOSP.TC ---
Today's Communication/Plan
-
see A/P
Assessment / Plan
Assessment / Plan
A/P:
# Sepsis POA secondary to RLL pneumonia; CAP vs aspiration pneumonia
CXR showed Moderate opacity in the RLL, new from 05/17/2024.
Flu/COVID negative. MRSA screen negative.
S/p x1 dose cefepime/Vanco. Cont Ceftriaxone, Doxy, IV Flagyl for anaerobic coverage w/ possible aspiration pneumonia.
cleared for soft and bite sized solids and thin liquids per SPL. SPL to follow daily
# Altered Mental Status/likely acute metabolic encephalopathy due to sepsis
Confusion has much resolved. Pt is AOx2-3
[address] head and MRI brain negative for acute intracranial abnormality.
# UTI ruled out
Urine culture no growth
# Dysphagia likely 2/2 acute metabolic encephalopathy
cleared for soft and bite sized solids and thin liquids per SPL
# RICK, Likely pre-renal secondary to infection, resolved
Cr 1.4 on admission -> 0.9 today.
# HFpEF
last echo 07/18/24, EF of 55%, mild-mod aortic stenosis, mild MR, AR, TR.
C/w decreased dose Carvedilol (due to bradycardia) with holding parameter
# ASCVD
# Seizure
IV Depakote back to PO
# Paroxysmal Atrial Fibrillation
c/w ROOF PROMENADE TILE SETTER Eliquis
Coreg as above
# Type II Diabetes Mellitus - LDISS
# Essential Hypertension
ROOF PROMENADE TILE SETTER Norvasc
Coreg dose decreased due to bradycardia, cont with holding parameter
IV hydralazine prn if unable to tolerate PO meds.
# Iron Deficiency Anemia - monitor. Transfuse if <7
# Asthma
prn duonebs
# Hypokalemia
replete IV
Diet - NPO
DVT PPX - ROOF PROMENADE TILE SETTER Eliquis
Code Status - DNR
DW daughter Kiana on the phone 08/06. She states that pt does NOT have diagnosis of dementia
DW RN
Anticipated Discharge: 24 - 48 hours
Subjective/Interval History
-
Date of Service: August 07, 2024
Objective Data
-
Labs:
Laboratory Results
08/07/24
07:26
WBC 9.1
Hgb 8.7 L
Hct 26.9 L
Plt Count 297
Sodium 140
Potassium 3.6
Chloride 107
Carbon Dioxide 23
BUN 17
Creatinine 0.9
Glucose 110 H
Calcium 8.0 L
Vital Signs:
Vital Signs
Temp Pulse Resp BP Pulse Ox
37.3 C 70 16 138/51 95
08/07/24 07:13 08/07/24 08:44 08/07/24 08:44 08/07/24 07:13 08/07/24 08:44
I&O
08/06/24 08/07/24 08/08/24
06:59 06:59 06:59
Intake Total 1760 / 1760 240 / 240
Output Total 600 / 600 450 / 450 200 / 200
Balance -600 / -600 1310 / 1310 40 / 40
Review of Systems
-
All other systems: Reviewed and negative
Physical Exam
-
General: Well Developed, Well Nourished, No Apparent Distress and Comfortable; Negative Appears in Distress
HEENT: Normocephalic, Atraumatic, Moist Mucous Membranes, Nose Appears Normal and Ears Appear Normal
Respiratory: Clear to Auscultation and Non Labored Respirations
Cardiac: Regular Rhythm, S1/S2 and Murmur (systolic murmur)
Breast: N/A
GI: Soft, Nontender and Nondistended
Genito-urinary: Deferred by me
Musculoskeletal: No Clubbing, No Cyanosis and No Edema
Neuro: Awake and Alert
Psych: Calm and Intact Judgement/Insight (somewhat)
Data Reviewed
-
Total Time Spent with Patient (in minutes): 52
Labs: Labs Reviewed by me
--- NOTE | 2024-08-07 10:40 | PTCARENOTE ---
OK to stop NIHSS on this pt per Dr Yañez.
[2024-08-07] MEDS: CARAFATE 1 GRAM PO (11:01)
[2024-08-07] MEDS: DEPAKOTE SPRINKLE 250 MG PO ×2 (11:08→18:17)
[2024-08-07] MEDS: KCL 270 MEQ IV (11:10)
[2024-08-07 11:17] VITALS: BP 132/63
[2024-08-07 11:57] LABS: Glucose - Point of Care 247 mg/dl (70-99)
[2024-08-07] MEDS: NOVOLOG FLEXPEN-LOW RESISTANCE 2 UNITS SC (12:18)
[2024-08-07] MEDS: NSS 1000 IV (13:33)
[2024-08-07 15:15] VITALS: BP 130/58
[2024-08-07 16:42] LABS: Glucose - Point of Care 136 mg/dl (70-99)
[2024-08-07] MEDS: FLOMAX 0.8 MG PO (17:14)
[2024-08-07] MEDS: GLUCOPHAGE 250 MG PO (18:17)
--- NOTE | 2024-08-07 18:53 | PTOTSP ---
ST Follow-Up
Pt currently presenting with clinical signs of mild oral dysphagia characterized by prolonged mastication and bolus formation as well as moderately-severe pharyngeal dysphagia characterized by immediate coughing during mastication of solids and s/p
ingestion of both solids and liquids (but solids>liquids). Given his difficulties with solids more than liquids, suspect some level of esophageal component. When ONCOLOGY SOCIAL WORKER inquired as to whether he felt any nausea, he said he did and it was 'mild.' Pt
communicated he has had swallow studies before but can not elaborate what his recommendations were or if he ever had any procedures. Pt denied any hx of any feeding tubes.
Recommendations:
- NPO except critical meds with small sips of water (crush in puree if needed).
- ARHP - small sips of water or ice chips sparingly with RN supervision after oral care.
- Aspiration and reflux precautions: HOB upright as often as possible; oral care QID.
- Video fluoroscopic swallow study for more information.
- ONCOLOGY SOCIAL WORKER to provide additional recommendations following completion of VFSS.
[2024-08-07 19:36] VITALS: BP 160/63
[2024-08-07] MEDS: CARAFATE PO (19:48)
[2024-08-07] MEDS: SENOKOT PO (19:49)
[2024-08-07] MEDS: MUCINEX PO (19:49)
[2024-08-07] MEDS: COREG 1.5625 MG PO (20:49)
[2024-08-07] MEDS: DESYREL PO (20:52)
[2024-08-07 21:36] LABS: Glucose - Point of Care 134 mg/dl (70-99)
[2024-08-07] MEDS: APRESOLINE 10 MG IV (23:49)
[2024-08-08] MEDS: ROCEPHIN 1000 MG IV (00:45)
[2024-08-08] MEDS: STERILE WATER FOR INJECTION 10 ML IV (00:45)
[2024-08-08 03:20] VITALS: BP 148/63
[2024-08-08 04:22] VITALS: BP 140/57
[2024-08-08] MEDS: FLAGYL 500 MG 100 IV ×2 (04:28→12:10)
[2024-08-08] MEDS: NOVOLOG FLEXPEN-LOW RESISTANCE SC ×2 (04:59→17:18)
[2024-08-08 05:01] LABS: Glucose - Point of Care 126 mg/dl (70-99)
[2024-08-08] MEDS: VIBRAMYCIN 260 MG IV (05:35)
[2024-08-08 06:00] VITALS: BMI 23.7
--- NOTE | 2024-08-08 06:07 | W.PN.UPDATE ---
Update Note
Progress Note Update
pt failed swallow study.
Pt made npo x necessary medications. will have VSE 08/08
Will hold lantFeeX - [employer] and use SSI. BG was 134
[2024-08-08] MEDS: FLOVENT 110 MCG INHALER 2 PUFF INH (07:24)
[2024-08-08 07:30] VITALS: BP 96/53
--- NOTE | 2024-08-08 07:33 | W.PN.HOSP.TC ---
Addendum entered and electronically signed by Arin Yañez MD 08/08/24 16:21:
total DC time 36 min
Addendum entered and electronically signed by Arin Yañez MD 08/08/24 12:27:
I saw and evaluated the patient. I reviewed the resident�s note and agree with findings and plan as documented in the resident�s note.
A/P:
# Sepsis POA secondary to RLL pneumonia; CAP vs aspiration pneumonia
CXR showed Moderate opacity in the RLL, new from 05/17/2024.
Flu/COVID negative. MRSA screen negative.
S/p x1 dose cefepime/Vanco. Cont Ceftriaxone, Doxy, IV Flagyl (for anaerobic coverage for aspiration). Can DC on PO Cefdinir, Doxy and Flagyl
VSE noted, cont soft and bite sized solids and thin liquids.
# Altered Mental Status/likely acute metabolic encephalopathy due to sepsis
Confusion has much resolved. Pt is AOx2-3
CT head and MRI brain negative for acute intracranial abnormality.
# UTI ruled out
Urine culture no growth
# Dysphagia likely 2/2 acute metabolic encephalopathy
VSE noted, cont soft and bite sized solids and thin liquids.
# RICK, Likely pre-renal secondary to infection, resolved
Cr 1.4 on admission -> 0.9 today.
# HFpEF
last echo 07/18/24, EF of 55%, mild-mod aortic stenosis, mild MR, AR, TR.
C/w decreased dose Carvedilol (due to bradycardia) with holding parameter
# ASCVD
# Seizure
IV Depakote back to PO
# Paroxysmal Atrial Fibrillation
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
Coreg as above
# Type II Diabetes Mellitus - LDISS
# Essential Hypertension
SOFT METALS HAND ENGRAVER Norvasc
Coreg dose decreased due to bradycardia, cont with holding parameter
IV hydralazine prn if unable to tolerate PO meds.
# Iron Deficiency Anemia - monitor. Transfuse if <7
# Asthma
prn duonebs
# Hypokalemia
replete IV
DVT PPX - SOFT METALS HAND ENGRAVER Eliquis
Code Status - DNR
DW RN
Original Note:
Today's Communication/Plan
-
Pending VSE. C/w flagyl/doxy/ceftriaxone.
Assessment / Plan
Assessment / Plan
83 year old man
#Sepsis secondary to RLL pneumonia, likely aspiration - Met SIRS criteria for sepsis (febrile, tachypneic, tachycardic, source of infection). CXR showing Moderate opacity in the RLL, new from 05/17/2024. Flu/COVID negative. MRSA screen negative. S/p
x1 dose cefepime/Vanco.
- On Ceftriaxone and Doxy, IV Flagyl for anaerobic coverage w/ possible aspiration pneumonia.
#Dysphagia
- Initially advanced diet to small bites, however failed repeat swallow study.
- Speech therapist following. Will go for VSE today with recommendations to follow.
#Acute Toxic Metabolic Encephalopathy, secondary to infection (resolved?)
#Aphasia, acute on chronic (resolved)
- CT showing no acute intracranial hemorrhage, and Fahr Syndrome (idiopathic basal ganglia calcification). Brain MRI wnl. Patient AOx3 today, remembers me from before the weekend, and is speaking coherently.
#HFrF - last echo 07/18/24, EF of 55%, mild-mod aortic stenosis, mild MR, AR, TR. C/w Carvedilol 1.5625 BID (reduced due to bradycardia) w/ holding parameter for HR < 55 or SBP < 90, amlodipine.
#ASCVD
#Seizure - Hold home PO depakote. will give IV Valproic acid.
#RICK on CKD (rsolved) - Likely pre-renal secondary to infection.
#UTI ruled out - UA showing bacteria, LE, moderate bacteria, however cultures show no growth. Likely unclean catch.
#Dementia? - Patient's baseline per daughter is cognitively intact, responsive and oriented x 3.
#Paroxysmal Atrial Fibrillation - c/w Eliquis as tolerated, if patient unable to take PO meds will switch to SC lovenox.
#Type II Diabetes Mellitus - LDISS
#Essential Hypertension - meds as above. IV hydralazine prn if unable to tolerate PO meds.
#Iron Deficiency Anemia - monitor. Transfuse if <7
#Asthma - prn duonebs
Diet - NPO
DVt PPX -
Code Status - DNR
Anticipated Discharge: 24 - 48 hours
Subjective/Interval History
-
Feeling good this morning. Still having some cough and shortness of breath, but it is improving. no new fevers, chills, chest pain, abd pain, n/v, headaches, numbness or tingling.
Objective Data
-
Labs:
Laboratory Results
08/08/24
05:59
WBC Pending
Hgb Pending
Hct Pending
Plt Count Pending
Sodium Pending
Potassium Pending
Chloride Pending
Carbon Dioxide Pending
BUN Pending
Creatinine Pending
Glucose Pending
Calcium Pending
Vital Signs:
Vital Signs
Temp Pulse Resp BP Pulse Ox
98.5 F 78 18 140/57 96
08/08/24 03:20 08/08/24 07:31 08/08/24 07:31 08/08/24 04:22 08/08/24 07:31
I&O
08/07/24 08/08/24 08/09/24
06:59 06:59 06:59
Intake Total 1760 / 1760 2150 / 2150
Output Total 450 / 450 650 / 650
Balance 1310 / 1310 1500 / 1500
Review of Systems
-
History Source: Patient
All other systems: Reviewed and negative
Constitutional: Reports No Symptoms
EENT: Reports No Symptoms Reported
Respiratory: Reports Cough and Trouble Breathing
Cardiac: Reports No Symptoms
Abdomen/GI: Reports No Symptoms
Breast: Reports N/A
Genitourinary: Reports No Symptoms
Musculoskeletal: Reports No Symptoms
Skin: Reports No Symptoms
Neuro: Reports No Symptoms
Physical Exam
-
General: Well Developed, Well Nourished, No Apparent Distress and Comfortable
HEENT: Normocephalic, Atraumatic and Moist Mucous Membranes
Respiratory: Wheezes, Rales, Rhonchi and Non Labored Respirations; Negative Clear to Auscultation
Cardiac: Regular Rhythm, S1/S2 and Murmur
Breast: N/A
GI: Soft, Nontender, Nondistended and Normal Bowel Sounds
Genito-urinary: Deferred by me
Musculoskeletal: No Clubbing, No Cyanosis and No Edema
Neuro: AO x 3
[2024-08-08 07:40] LABS: Hematocrit 27.8 % (39.0-52.0); Mean Corp Hgb Conc. 32.4 g/dL (33.0-37.0); Mean Corpuscular Hgb 25.1 pg (27.0-31.0); Mean Corpuscular Volume 77.7 fL (80.0-94.0); Mean Platelet Volume 9.2 fL (7.4-10.4); Platelet Count 306 10^3/uL (130-400); Red Blood Cell Count 3.58 10^6/uL (4.70-6.10); Red Cell Dist. Width 15.3 % (11.5-14.5); White Blood Cell Count 9.4 10^3/uL (4.8-10.8)
[2024-08-08 08:12] LABS: Blood Urea Nitrogen 11 mg/dl (9-20); Calcium 7.8 mg/dl (8.4-10.2); Carbon Dioxide 23 mmol/L (22-30); Chloride 107 mmol/L (98-107); Estimated Creatinine Clearance 67 ml/min; Glucose 111 mg/dl (70-99); Magnesium 1.7 mg/dl (1.6-2.3); Potassium 3.8 mmol/L (3.5-5.1); Sodium 139 mmol/L (135-145); eGFR > 60.00
[2024-08-08] MEDS: ELIQUIS 2.5 MG PO (08:52)
[2024-08-08] MEDS: DEPAKOTE SPRINKLE 250 MG PO (08:52)
[2024-08-08] MEDS: MUCINEX 600 MG PO (08:53)
[2024-08-08] MEDS: PAXIL 30 MG PO (08:54)
[2024-08-08] MEDS: GLUCOPHAGE 250 MG PO (08:54)
[2024-08-08] MEDS: COREG 1.5625 MG PO (08:54)
[2024-08-08] MEDS: NORVASC 2.5 MG PO (08:54)
[2024-08-08] MEDS: CARAFATE 1 GRAM PO (08:54)
[2024-08-08] MEDS: COLACE PO (08:56)
[2024-08-08] MEDS: NSS IV (09:00)
[2024-08-08] MEDS: DESENEX/MITRAZOL/ZEASORB 1 APPLIC TOPICAL (09:02)
--- NOTE | 2024-08-08 09:21 | PTOTSP ---
Videofluoroscopic Swallow Study
Summary: Mild oral/pharyngeal dysphagia. No significant pharyngeal retention. No penetration or aspiration. Coughing noted unrelated to any visualized aspiration events. Esophageal sweep concerning for retention and retrograde flow below
pharyngoesophageal sphincter. Bottom aspiration risk elevated.
Recommend:
1. IDDSI Level 6 Soft and Bite Sized, Thin Liquids via cup with oral prep set (hold liquid in mouth 2 seconds then swallow)
2. Medications: as best tolerated
3. Strategies: upright to 90 degrees, supervision, small single sips/bites, slow rate, oral prep set (hold liquid in front of mouth 2 seconds then swallow to increase control), intersperse liquids throughout meal to assist with esophageal clearance,
remain upright for at least 30 minutes after PO intake as a reflux precaution
4. Oral care 3-5x daily
5. Dysphagia f/u at the acute care level for education in compensations.
6. Consider GI consult.
[2024-08-08 09:59] VITALS: BP 155/66; PULSE 70; O2SAT 95
[2024-08-08 11:05] VITALS: BP 147/74
--- NOTE | 2024-08-08 11:29 | CM ---
Had VSE today .
Pt is alf at [facility] .
Spoke with Carina today .
Referral placed.
[facility]
report [phone]
fax [phone]
PLAN Return to [facility]
[2024-08-08 11:45] LABS: Glucose - Point of Care 187 mg/dl (70-99)
[2024-08-08] MEDS: NOVOLOG FLEXPEN-LOW RESISTANCE 1 UNITS SC (12:11)
--- NOTE | 2024-08-08 13:22 | CM ---
MD indicated pt ready for discharge today
Had VSE today.Results forwarded to [facility]
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
Spoke with Carina today.Pt accepted back .
Spoke with dgbryanna Bruno she agrees with discharge and IMM .
She requested ambulance transportation . Medical nec form completed.
[facility]
report [phone]
fax [phone]
PLAN Return to [facility]
[2024-08-08] MEDS: NSS 1000 IV (13:30)
[2024-08-08 15:05] VITALS: BP 157/64
--- NOTE | 2024-08-08 16:08 | W.DCSUMMARY ---
Documented by User: Rolan Drew MD, Resident 08/08/24 17:26
Discharge Summary
Discharge Data
Date of Admission: 08/04/24
Date of Discharge: 08/08/24
Total time spent discharging patient (in min): >30min
-
Pending Results: No
Hospital Course
Discharging Physician : Dr. Rolan Drew, Dr. Arin Yañez
Disposition : SNF
Primary care physician : unknown
Principal Discharge diagnosis : Sepsis secondary to RLL Pneumonia, acute toxic metabolic encephalopathy, Dysphagia, Acute Kidney Injury, Hypokalemia
Chronic Discharge diagnosis : Heat Failure with preserved Ejection Fraction, ASCVD, Seizure, Paroxysmal Atrial Fibrillation, Type II Diabetes Mellitus, Essential Hypertension, Iron Deficiency Anemia, Asthma
Hospital Course :
Yogi Arora is an 83 year old man who was brought to the [facility] for complaints of altered mental status. A chest xray was done which showed moderate opacity in the right lower lobe which was new from prior pneumonia on 05/17/24. Flu and COVID
tests were done which were negative. A MRSA screening was done which was negative. A urinalysis was done which showed findings suggestive of UTI and a reflex urine culture was ordered. His creatinine was elevated on admission, presumed to be
pre-renal as a result of sepsis secondary to infection.
The patient was presumed to have toxic metabolic encephalopathy and sepsis secondary to community acquired pneumonia. He received one dose of cefepime/vancomycin and was then switched to Ceftriaxone and Doxycycline. During his stay, he was
evaluated by the speech therapist and found to have dysphagia. There were concerns for aspiration and Flagyl was added to his antibiotic regimen. Urine culture came back with no growth and UTI was ruled out as a cause of the patient's altered mental
status.
Throughout the hospital stay, the patient's mental status continued to improve until he was awake, alert and oriented x3. A video swallow study was done which showed the patient may be having some dysmotility, but he was cleared for IDDSI Level 6
Soft and Bite Sized diet.
The patient was ultimately deemed stable for discharge back to the SNF with transition to oral metronidazole, cefdinir and doxycycline for two more days to cover for aspiration vs. community acquired pneumonia. It is recommended that he follow up
with a GI for further evaluation of dysphagia.
Important imaging findings :
CR Chest - 2 Views:
1. Moderate opacity in the basilar right lower lobe which appears new from 05/17/2024. Diagnostic possibilities are (1) RIGHT LOWER LOBE PNEUMONIA or (2) right lower lobe subsegmental atelectasis.
2. Mild chronic subsegmental atelectasis and scarring in the left lower lobe.
3. Previous CABG surgery.
CT Head W/o Iv Contrast:
1. No CT evidence for acute intracranial hemorrhage or transcortical infarct.
2. Moderate bilateral cerebral and cerebellar volume loss.
3. Moderate white matter leukoaraiosis in the frontal and parietal lobes.
4. 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
MR Brain Without Contrast:
1. No acute intracranial abnormality.
2. 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
Procedure findings : none
Discharge Plan
-
Patient Disposition: Detention/SNF
Discharge Diagnosis/Procedures: Sepsis secondary to Right lower lobe pneumonia (community acquired versus aspiration pneumonia)
Condition: Fair
Diet: As tolerated
Additional Diets: soft and bite sizes
Activity: As tolerated
Driving Restrictions: As prior to admission
Activity Restrictions/Additional Instructions:
Consider follow up with GI outpatient for your chronic dysphagia eval
Referrals:
UNKNOWN - PT DOES,NOT KNOW [Family Provider] - in less than 1 week
Additional Discharge Medication Instructions: Continue Antibiotics Cefdinir, doxycycline and Flagyl for 2 more days
Prescriptions:
New
cefdinir 300 mg capsule
300 mg PO Q12H 2 Days Qty: 4 0RF
metronidazole 500 mg tablet
500 mg PO Q8H 2 Days Qty: 6 0RF
doxycycline hyclate 100 mg capsule
100 mg PO BID 2 Days Qty: 4 0RF
Continued
metformin 500 mg Tablet
250 mg PO BID@
acetaminophen [Tylenol] 325 mg Tablet
650 mg PO Q4HPRN PRN (Reason: mild pain/fever>100.4)
sucralfate [Carafate] 1 gram Tablet
1 g PO BID
carvedilol [Coreg] 3.125 mg Tablet
3.125 mg PO BID
magnesium hydroxide [Milk of Magnesia] 400 mg/5 mL Suspension
30 ml PO HSPRN PRN (Reason: constipation)
tamsulosin [Flomax] 0.4 mg Capsule
0.8 mg PO QPM
bisacodyl [Dulcolax (bisacodyl)] 10 mg Suppository
10 mg IN [id number] PRN (Reason: if mom ineffective)
furosemide [Lasix] 20 mg Tablet
20 mg PO DAILY
Arnuity Ellipta 200 mcg/actuation Blister With Device
1 inh INHALATION R DAILY
Trulicity 1.5 mg/0.5 mL Pen Injector
1.5 mg SC FR
divalproex 250 mg Tablet,Delayed Release (Dr/Ec)
250 mg PO BID@
amlodipine 2.5 mg tablet
2.5 mg PO DAILY
melatonin 3 mg Tablet
3 mg PO HS
pantoprazole 20 mg Tablet,Delayed Release (Dr/Ec)
20 mg PO HS
paroxetine HCl 30 mg Tablet
30 mg PO DAILY
cholecalciferol (vitamin D3) 1,250 mcg (50,000 unit) Tablet
1,250 mcg PO QMONTH
Rx Instructions:
Thursday of each month
ipratropium-albuterol 0.5 mg-3 mg(2.5 mg base)/3 mL solution for nebulization
3 ml inhalation R Q6HPRN PRN (Reason: wheezing)
dextromethorphan-guaifenesin [Diabetic Tussin DM] 10-100 mg/5 mL Liquid
10 ml PO Q4HPRN PRN (Reason: cough)
apixaban 2.5 mg Tablet
2.5 mg PO BID Qty: 0 0RF
insulin glargine 100 unit/mL Solution
14 unit SC HS
oxybutynin chloride 5 mg Tablet Extended Release 24hr
5 mg PO DAILY
Visbiome 112.5 billion cell Capsule
1 cap PO DAILY
Discontinued
trazodone 50 mg Tablet
50 mg PO HS
Discharge Orders:
Discharge Patient (As Directed); Ordered 08/08/24
Ordered By: Arin Yañez
Discharge Date and Time
Print Language: GERMAN

Documented by User: Arin Yañez MD 08/08/24 17:31
Discharge Summary
Discharge Data
Date of Admission: 08/04/24
Date of Discharge: 08/08/24
Hospital Course
Discharging Physician : Dr. Rolan Drew, Dr. Arin Yañez
Disposition : SNF
Primary care physician : unknown
Principal Discharge diagnosis : Sepsis secondary to RLL Pneumonia, acute metabolic encephalopathy, Dysphagia, Acute Kidney Injury, Hypokalemia
Chronic Discharge diagnosis : Heat Failure with preserved Ejection Fraction, ASCVD, Seizure, Paroxysmal Atrial Fibrillation, Type II Diabetes Mellitus, Essential Hypertension, Iron Deficiency Anemia, Asthma
Hospital Course :
Yogi Arora is an 83 year old man who was brought to the ED for complaints of altered mental status. His chest xray showed moderate opacity in the right lower lobe which was new from prior on 05/17/24. Flu and COVID tests were done which
were negative. A MRSA screening was done which was negative. A urinalysis was done which showed findings suggestive of UTI and a reflex urine culture was ordered. His creatinine was elevated on admission, presumed to be pre-renal as a result of
sepsis secondary to infection.
The patient was presumed to have metabolic encephalopathy and sepsis secondary to community acquired pneumonia. He received one dose of cefepime/vancomycin and was then switched to Ceftriaxone and Doxycycline. During his stay, he was evaluated by
the speech therapist and found to have dysphagia. There were concerns for aspiration and Flagyl was added to his antibiotic regimen. Urine culture came back with no growth and UTI was ruled out as a cause of the patient's altered mental status.
Throughout the hospital stay, the patient's mental status continued to improve until he was awake, alert and oriented x3. A video swallow study was done which showed the patient may be having some dysmotility, but he was cleared for IDDSI Level 6
Soft and Bite Sized diet.
The patient was ultimately deemed stable for discharge back to the SNF with transition to oral metronidazole, cefdinir and doxycycline for two more days to cover for aspiration vs. community acquired pneumonia. It is recommended that he follow up
with a GI for further evaluation of dysphagia.
Important imaging findings :
CR Chest - 2 Views:
1. Moderate opacity in the basilar right lower lobe which appears new from 05/17/2024. Diagnostic possibilities are (1) RIGHT LOWER LOBE PNEUMONIA or (2) right lower lobe subsegmental atelectasis.
2. Mild chronic subsegmental atelectasis and scarring in the left lower lobe.
3. Previous CABG surgery.
CT Head W/o Iv Contrast:
1. No CT evidence for acute intracranial hemorrhage or transcortical infarct.
2. Moderate bilateral cerebral and cerebellar volume loss.
3. Moderate white matter leukoaraiosis in the frontal and parietal lobes.
4. 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
MR Brain Without Contrast:
1. No acute intracranial abnormality.
2. 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
Procedure findings : none
Discharge Plan
-
Patient Disposition: Detention/SNF
Discharge Diagnosis/Procedures: Sepsis secondary to Right lower lobe pneumonia (community acquired versus aspiration pneumonia)
Condition: Fair
Diet: As tolerated
Additional Diets: soft and bite sizes
Activity: As tolerated
Driving Restrictions: As prior to admission
Activity Restrictions/Additional Instructions:
Consider follow up with GI outpatient for your chronic dysphagia eval
Referrals:
UNKNOWN - PT DOES,NOT KNOW [Family Provider] - in less than 1 week
Additional Discharge Medication Instructions: Continue Antibiotics Cefdinir, doxycycline and Flagyl for 2 more days
Prescriptions:
New
cefdinir 300 mg capsule
300 mg PO Q12H 2 Days Qty: 4 0RF
metronidazole 500 mg tablet
500 mg PO Q8H 2 Days Qty: 6 0RF
doxycycline hyclate 100 mg capsule
100 mg PO BID 2 Days Qty: 4 0RF
Continued
metformin 500 mg Tablet
250 mg PO BID@0830,1830
acetaminophen [Tylenol] 325 mg Tablet
650 mg PO Q4HPRN PRN (Reason: mild pain/fever>100.4)
sucralfate [Carafate] 1 gram Tablet
1 g PO BID
carvedilol [Coreg] 3.125 mg Tablet
3.125 mg PO BID
magnesium hydroxide [Milk of Magnesia] 400 mg/5 mL Suspension
30 ml PO HSPRN PRN (Reason: constipation)
tamsulosin [Flomax] 0.4 mg Capsule
0.8 mg PO QPM
bisacodyl [Dulcolax (bisacodyl)] 10 mg Suppository
10 mg IN [id number] PRN (Reason: if mom ineffective)
furosemide [Lasix] 20 mg Tablet
20 mg PO DAILY
Arnuity Ellipta 200 mcg/actuation Blister With Device
1 inh INHALATION R DAILY
Trulicity 1.5 mg/0.5 mL Pen Injector
1.5 mg SC FR
divalproex 250 mg Tablet,Delayed Release (Dr/Ec)
250 mg PO BID@0830,1830
amlodipine 2.5 mg tablet
2.5 mg PO DAILY
melatonin 3 mg Tablet
3 mg PO HS
pantoprazole 20 mg Tablet,Delayed Release (Dr/Ec)
20 mg PO HS
paroxetine HCl 30 mg Tablet
30 mg PO DAILY
cholecalciferol (vitamin D3) 1,250 mcg (50,000 unit) Tablet
1,250 mcg PO QMONTH
Rx Instructions:
Thursday of each month
ipratropium-albuterol 0.5 mg-3 mg(2.5 mg base)/3 mL solution for nebulization
3 ml inhalation R Q6HPRN PRN (Reason: wheezing)
dextromethorphan-guaifenesin [Diabetic Tussin DM] 10-100 mg/5 mL Liquid
10 ml PO Q4HPRN PRN (Reason: cough)
apixaban 2.5 mg Tablet
2.5 mg PO BID Qty: 0 0RF
insulin glargine 100 unit/mL Solution
14 unit SC HS
oxybutynin chloride 5 mg Tablet Extended Release 24hr
5 mg PO DAILY
Visbiome 112.5 billion cell Capsule
1 cap PO DAILY
Discontinued
trazodone 50 mg Tablet
50 mg PO HS
Discharge Orders:
Discharge Patient (As Directed); Ordered 08/08/24
Ordered By: Arin Yañez
Discharge Date and Time
Print Language: GERMAN
[2024-08-08 16:57] LABS: Glucose - Point of Care 128 mg/dl (70-99)
--- NOTE | 2024-08-08 17:18 | PTCARENOTE ---
Report called to RN at [facility]. Spoke to daughter to update that ambulance cone picker time is 1800. IV and tele removed. Patient awaiting ambulance cone picker.
== END 2024-08-08 18:33 | DRG 871 ==
LOC: 4 EAST ACU 20:58
PROVIDERS: Physician Assistant; ADMITTING PHYSICIAN Hospitalist; ATTENDING PHYSICIAN Internal Medicine; EMERGENCY PHYSICIAN Student in an Organized Health Care Education/Training Program
DX: A41.9 Sepsis, unspecified organism (principal); G92.8 Other toxic encephalopathy; J18.9 Pneumonia, unspecified organism; J69.0 Pneumonitis due to inhalation of food and vomit; I13.0 Hypertensive heart and chronic kidney disease with heart failure and stage 1 through stage 4 chronic kidney disease, or unspecified chronic kidney disease; I50.32 Chronic diastolic (congestive) heart failure; N17.9 Acute kidney failure, unspecified; D68.59 Other primary thrombophilia; F03.918 Unspecified dementia, unspecified severity, with other behavioral disturbance; Z66 Do not resuscitate; E78.00 Pure hypercholesterolemia, unspecified; E11.22 Type 2 diabetes mellitus with diabetic chronic kidney disease; I25.10 Atherosclerotic heart disease of native coronary artery without angina pectoris; I25.2 Old myocardial infarction; I48.0 Paroxysmal atrial fibrillation; J45.909 Unspecified asthma, uncomplicated; N18.30 Chronic kidney disease, stage 3 unspecified; N32.81 Overactive bladder; N40.0 Benign prostatic hyperplasia without lower urinary tract symptoms; D50.9 Iron deficiency anemia, unspecified; R13.19 Other dysphagia; E87.6 Hypokalemia; F32.A Depression, unspecified; Z11.52 Encounter for screening for COVID-19; Z95.1 Presence of aortocoronary bypass graft; Z95.828 Presence of other vascular implants and grafts; Z86.718 Personal history of other venous thrombosis and embolism; Z86.711 Personal history of pulmonary embolism; Z86.73 Personal history of transient ischemic attack (TIA), and cerebral infarction without residual deficits; Z87.891 Personal history of nicotine dependence; Z79.4 Long term (current) use of insulin; Z79.85 Long-term (current) use of injectable non-insulin antidiabetic drugs; Z79.84 Long term (current) use of oral hypoglycemic drugs; Z79.01 Long term (current) use of anticoagulants; Z79.51 Long term (current) use of inhaled steroids; Z79.899 Other long term (current) drug therapy
CPT/HCPCS: 36415; 51701; 70450; 70551; 71046; 74230; 80048; 80053; 81003; 81015; 82962; 83036; 83605; 83735; 83880; 84484; 85025; 85027; 87070; 87086; 87502; 87811; 92526; 92610; 92611; 93005; 94640; 94667; 94668; 97110; 97116; 97163; 97167; 99285

== ENCOUNTER → 2024-08-30 11:31 | Outpatient (REF) | payer OTHER, MEDICARE, SELFPAY ==
[2024-08-30 12:37] LABS: Procalcitonin < 0.05 ng/ml (0.0-0.25)
[2024-08-30 12:43] LABS: % Basophils 0.6 % (0-2); % Eosinophils 2.2 % (0-6); % Immature Granulocytes 0.3 % (0-0.5); % Lymphocytes 39.8 % (20.5-51.1); % Monocytes 7.7 % (1.7-9.3); % Neutrophils 49.4 % (42.2-75.2); Absolute Eosinophils 0.2 10^3/uL (0-0.7); Absolute Lymphocytes 2.8 10^3/uL (1.2-3.4); Absolute Monocytes 0.6 10^3/uL (0.1-0.6); Absolute Neutrophils 3.5 10^3/uL (1.4-6.5); Hematocrit 29.3 % (39.0-52.0); Hemoglobin 9.1 g/dL (13.0-18.0); Mean Corp Hgb Conc. 31.1 g/dL (33.0-37.0); Mean Corpuscular Hgb 24.5 pg (27.0-31.0); Mean Corpuscular Volume 78.8 fL (80.0-94.0); Mean Platelet Volume 10.4 fL (7.4-10.4); Nucleated Red Blood Cells % 0 % (-); Platelet Count 152 10^3/uL (130-400); Red Blood Cell Count 3.72 10^6/uL (4.70-6.10); Red Cell Dist. Width 15.9 % (11.5-14.5); White Blood Cell Count 7.1 10^3/uL (4.8-10.8)
== END ==
LOC: OLABN 11:31
PROVIDERS: ATTENDING PHYSICIAN Student in an Organized Health Care Education/Training Program
DX: J18.9 Pneumonia, unspecified organism (principal); R05.9 Cough, unspecified
CPT/HCPCS: 36415; 84145; 85025

== ENCOUNTER → 2024-09-20 08:47 | Outpatient (REF) | payer MEDICARE, OTHER, SELFPAY ==
[2024-09-20 10:14] LABS: TSH 3.83 uIU/ml (0.47-4.68)
== END ==
LOC: OLABN 08:47
PROVIDERS: ATTENDING PHYSICIAN Student in an Organized Health Care Education/Training Program
DX: E03.9 Hypothyroidism, unspecified (principal)
CPT/HCPCS: 36415; 84443

== ENCOUNTER → 2024-09-21 11:11 | Outpatient (REF) | payer MEDICARE, OTHER, SELFPAY ==
[2024-09-21 12:38] LABS: Depakane 31.7 ug/ml (50.0-120.0)
== END ==
LOC: OLABN 11:11
PROVIDERS: ATTENDING PHYSICIAN Student in an Organized Health Care Education/Training Program
DX: F63.81 Intermittent explosive disorder (principal)
CPT/HCPCS: 36415; 80164

== ENCOUNTER → 2025-03-22 10:46 | Outpatient (REF) | payer MEDICARE, OTHER, SELFPAY ==
[2025-03-22 12:22] LABS: Depakane 27.2 ug/ml (50.0-120.0)
== END ==
LOC: OLABN 10:46
PROVIDERS: ATTENDING PHYSICIAN Student in an Organized Health Care Education/Training Program
DX: F63.81 Intermittent explosive disorder (principal)
CPT/HCPCS: 36415; 80164